=== PATIENT | female | born 1940 | race Hispanic/Latino ===

== ENCOUNTER 2019-10-23 10:19 | Inpatient (IN) | payer MEDICARE ==
[~2019-10-23] VITALS: Ht 157.5 cm; Wt 78.5 kg
[2019-10-23] MEDS ORDERED: ASPIRIN 81 MG CHEW TAB PO ONE (10:30)
[2019-10-23] MEDS ORDERED: IPRATROPIUM BROMIDE 0.02% 2.5 ML NEB NEB STA (10:30)
[2019-10-23] MEDS ORDERED: CEFTRIAXONE SOD 1 GM/NS 50 ML 50 ML IV STA (10:30)
[2019-10-23] MEDS ORDERED: ALBUTEROL SULF 0.083% NEB SOLN 3 ML NEB NEB STA (10:30)
--- NOTE | 2019-10-23 11:02 | NUR ---
per family pt has not take bp meds this morning
[2019-10-23] MEDS ORDERED: CYMBALTA30 MG PO (11:04)
[2019-10-23] MEDS ORDERED: IRBESARTAN150 MG PO (11:04)
[2019-10-23] MEDS ORDERED: AMLODIPINE BESYL5 MG PO (11:04)
--- NOTE | 2019-10-23 11:04 | NUR ---
pt medications reviewed with family
--- NOTE | 2019-10-23 11:08 | NUR ---
PER FAMILY PT NO LONGER PRODUCES URINE
[2019-10-23 11:21] LABS: INR 0.93
[2019-10-23 11:22] LABS: BASOPHILS % 0.2 % (0.0-1.0); EOSINOPHILS # (AUTO) 0.1 (0.0-0.4); HEMATOCRIT 38.7 % (34.2-44.1); HEMOGLOBIN 11.9 g/dL (12.0-16.0); MEAN CORPUSCULAR HEMOGLOBIN 26.6 pg (28-32); MEAN CORPUSCULAR HGB CONC 30.7 g/dL (31-35); MEAN CORPUSCULAR VOLUME 86.6 fL (81-99); MONOCYTES # (AUTO) 0.9 (0.2-0.8); MONOCYTES % 17.5 % (4.4-11.3); NEUTROPHILS # (AUTO) 3.2 (2.1-6.9); NEUTROPHILS % 62.1 % (38.7-80.0); PARTIAL THROMBOPLASTIN TIME 34.6 seconds (23.8-35.5); PLATELET COUNT 121 x10e3/uL (140-360); RED BLOOD COUNT 4.47 x10e6/uL (3.6-5.1)
[2019-10-23 11:29] LABS: ALBUMIN 3.2 g/dL (3.5-5.0); ALBUMIN/GLOBULIN RATIO 0.8 (0.8-2.0); ANION GAP 27.5 mmol/L (8-16); CALCIUM 9.2 mg/dL (8.4-10.2); CREATININE, SERUM 11.43 mg/dL (0.57-1.11); POTASSIUM 5.5 mmol/L (3.5-5.1)
--- NOTE | 2019-10-23 11:40 | Diagnostic Imaging Report ---
EXAM: CHEST SINGLE (PORTABLE) DATE: 10/23/2019 10:30 AM INDICATION: Fever, cough, chest pain COMPARISON: None FINDINGS: The trachea is midline. There are minimal bibasilar opacities suggestive of atelectasis. The lungs are otherwise symmetrically expanded without evidence for large focal consolidation, pneumothorax, or significant pleural effusion. The cardiac silhouette appears mildly prominent which is likely secondary to technique. Atherosclerotic calcifications are noted within the aortic arch. Vascular stent noted in the left subclavian region. The visualized osseous structures demonstrate degenerative changes. No acute osseous abnormality identified. IMPRESSION: No acute cardiopulmonary process identified. Signed by: Dr. Paulo Gramajo MD on 10/23/2019 11:37 AM
[2019-10-23 11:54] LABS: CREATINE KINASE MB 1.1 ng/mL (0-5.0)
[2019-10-23] MEDS ORDERED: ONDANSETRON HCL INJ 2MG/ML 2ML 2 MG/ML VIAL IV PRN (12:15)
[2019-10-23] MEDS ORDERED: ALBUTEROL/IPRATROPIUM 3 ML NEB NEB ONE (12:30)
[2019-10-23] MEDS ORDERED: METHYLPREDNISOLONE SOD SUCC 125 MG/2ML VIAL IV ONE (12:30)
[2019-10-23] MEDS ORDERED: ALBUTEROL/IPRATROPIUM 3 ML NEB NEB PRN (12:30)
[2019-10-23] MEDS ORDERED: SODIUM CHLORIDE 0.9% 1000ML 1,000 ML ONE (15:51)
[2019-10-23] MEDS ORDERED: PNEUMOCOCCAL VACCINE POLYVALENT 23 MCG/0.5 ML VIAL IM SCH ×2 (16:17→22:00)
[2019-10-23 16:18] VITALS: BP 156/70
[2019-10-23 16:28] VITALS: BP 156/70
[2019-10-23 20:00] VITALS: BP 162/72
--- NOTE | 2019-10-23 20:30 | NUR ---
Received nursing report from night nurse. Pt alert to name, lying in bed, HOB 45 degrees, receiving HD dialysis. Denies pain at this time. Family at bedside. Call light within reach. Will continue to monitor.
[2019-10-23 21:00] VITALS: BP 162/72
[2019-10-23] MEDS: METHYLPREDNISOLONE SOD SUCC 40 MG/ML VIAL 1ML IV SCH (21:16)
[2019-10-24] VITALS (9 sets, daily range): BP systolic 134–183; BP diastolic 56–79
[2019-10-24] MEDS: METHYLPREDNISOLONE SOD SUCC 40 MG/ML VIAL 1ML IV SCH ×3 (01:42→14:50)
[2019-10-24 05:38] LABS: ALBUMIN/GLOBULIN RATIO 0.8 (0.8-2.0); ANION GAP 20.8 mmol/L (8-16); CALCIUM 9.9 mg/dL (8.4-10.2); CREATININE, SERUM 5.61 mg/dL (0.57-1.11); POTASSIUM 4.8 mmol/L (3.5-5.1)
[2019-10-24 05:44] LABS: HEMATOCRIT 34.3 % (34.2-44.1); HEMOGLOBIN 10.9 g/dL (12.0-16.0); LYMPHOCYTES # (AUTO) 0.2 (1.0-3.2); MEAN CORPUSCULAR HEMOGLOBIN 27.1 pg (28-32); MEAN CORPUSCULAR HGB CONC 31.8 g/dL (31-35); MEAN CORPUSCULAR VOLUME 85.3 fL (81-99); MONOCYTES # (AUTO) 0.1 (0.2-0.8); NEUTROPHILS # (AUTO) 0.6 (2.1-6.9); PLATELET COUNT 102 x10e3/uL (140-360); RED BLOOD COUNT 4.02 x10e6/uL (3.6-5.1)
[2019-10-24 06:05] LABS: CREATINE KINASE MB 1.1 ng/mL (0-5.0)
--- NOTE | 2019-10-24 06:09 | NUR ---
Informed by lab WBC 0.89, called Dr. Hoffman ordered neurogenic precautions and consult for Dr. Wheatley.
--- NOTE | 2019-10-24 06:18 | NUR ---
Spoke with Dr. Cormier regarding consult, stated will visit Pt today.
--- NOTE | 2019-10-24 07:00 | NUR ---
Report given to morning nurse. Pt alert and orient. No acute distress noted.
--- NOTE | 2019-10-24 07:39 | NUR ---
H&P cc: not feeling well HPI: 79yoF, PCP , developed sob and cough. IN ED positive for Flu. admitted for mgmt. PMH: ESRD, HTN PSHx: unknown Allergies; see emr Fh/SH; no illicits meds; see MAR ROS; no cp/sob/BARKER/dizziness/skin rash/diarrhea/back pain/confusion v/s revd PE tired appearing anicteric ns1s2 reduced BS soft nt nd no e/t skin dry flat affect a&ox3; harden labs/meds revd A/P: 79yoF Influenzea A infection Pancytopenia Neutropenia ESRD Hyperkalemia Obesity BMI 31.6 HTN PLAN IV azithromycin/IV cefepime Neutropenic precautions HD for fluid removal PT therapy SCD/pepcid Bunny Hoffman MD, PhD.
[2019-10-24 08:28] LABS: CHOL/HDL RATIO 4.1 (3.0-3.6)
[2019-10-24] MEDS ORDERED: CEFEPIME 1GM/NS 0.9% 50 ML 50 ML IV SCH (09:00)
[2019-10-24] MEDS ORDERED: AZITHROMYCIN 500MG/NS 250 ML 250 ML IV SCH (10:00)
[2019-10-24] MEDS ORDERED: SODIUM CHLORIDE 0.9% 250ML 250 ML ONE (10:10)
[2019-10-24] MEDS: OSELTAMIVIR PHOSPHATE 75 MG CAP PO SCH ×2 (10:17→21:00)
[2019-10-24] MEDS: BENZONATATE 100 MG CAP PO SCH ×3 (10:17→22:00)
[2019-10-24] MEDS: AMLODIPINE BESYLATE 5 MG TAB PO SCH (10:17)
[2019-10-24] MEDS ORDERED: FILGRASTIM 480 MCG/1.6 ML SQ ONE (10:45)
[2019-10-24 11:42] LABS: BAND NEUTROPHILS % (MANUAL) 6 %; LYMPHOCYTES % (MANUAL) 28 % (19-48); MONOCYTES % (MANUAL) 6 % (3.4-9.0); NEUTROPHILS % (MANUAL) 60 % (40-74); PLATELET ESTIMATE SLIGHTLY DECREASED; PLATELET MORPHOLOGY COMMENT NORMAL; RBC MORPHOLOGY COMMENT NORMAL
--- NOTE | 2019-10-24 14:50 | NUR ---
WOUND CARE CONSULT 79 YO FEMALE HX OF ESRD,DYSPNEA, FLUID OVERLOAD LINDEN 15 ON MODERATE PUP INTERVENTIONS AND ALTERNATING PRESSURE SURFACE LABS: WBC- .89,HGB- 10.9, GLUCOSE - 162 BLOOD CULTURE PENDING SKIN ASSESSMENT COMPLETE PATIENT PRESENTS WITH ABRASION TO LEFT POSTERIOR FOOT ACHILLES 1CM X1CM X .1CM PATIENT REPORTS SCRAPING BACK OF HEEL ON WHEELCHAIR RECOMMENDATIONS: NURSING TO CONTINUE TO MAINTAIN MODERATE PUP STATUS AND ALTERNATING PRESSURE SURFACE NURSING TO CONTINUE TO ASSIST PATIENT OUT OF BED FOR MEALS AND MUCH TOLERATED NURSING TO APPLY DAILY VENELEX OINTMENT TO LEFT POSTERIOR HEEL ACHILLES AREA ABRASION LEAVE OPEN TO AIR
--- NOTE | 2019-10-24 15:49 | NUR ---
PATIENT STUCK 4 TIMES WITH ULTRASOUND GUIDED IV IN RIGHT ARM, IV I SNOW INFILTRATED, HER LEFT ARM HAS AN AV SHUNT FOR HEMODIALYSIS SO CAN NOT BE USED FOR IV ACCESS; CALLED DR. MACEDO, LEFT MESSAGE TO CALL BACK WITH CALL BACK NUMBER AND PATIENT NAME.
--- NOTE | 2019-10-24 16:43 | NUR ---
CALLED DR. THOMAS'S OFFICE PER DR. MCDOWELL'S INSTRUCTIONS REGARDING REQUEST FOR MIDLINE OR PICC LINE FOR ANTIBIOTIC ADMINISTRATION.
[2019-10-24] MEDS: FAMOTIDINE 20 MG TAB PO SCH (18:17)
--- NOTE | 2019-10-24 19:10 | NUR ---
Report received from morning nurse. Pt alert to name, lying in bed, HOB 45 degrees. Denies pain at this time. Bed low and locked. Call light within reach. Family at bedside. Will continue to monitor.
[2019-10-25] VITALS (7 sets, daily range): BP systolic 132–192; BP diastolic 65–88
--- NOTE | 2019-10-25 00:01 | Consultation ---
DATE OF CONSULTATION: 10/24/2019 HISTORY OF PRESENT ILLNESS: This is an 79-year-old female with underlying history of end-stage renal disease, congestive heart failure, anemia, and chronic kidney disease, came in with shortness of breath, found to have significant hematological problems. Dr. England was consulted. Initial white count was with a hemoglobin 10.9, platelets 102. Initial chemistries; potassium 4.8, creatinine 5.6. BNP . She was emergently dialyzed. She is feeling better. Awake, alert, and resting in no apparent distress. PHYSICAL EXAMINATION: VITAL SIGNS: Blood pressure 154/71, pulse rate 90, and afebrile. HEAD AND NECK: Cornea clear. Oral mucosa moist. LUNGS: End-expiratory rhonchi with scattered rales. HEART: S1 and S2 audible. ABDOMEN: Soft, nontender. No apparent visceromegaly. EXTREMITIES: Lower extremity, no edema. ALLERGIES: NO APPARENT DRUG ALLERGIES. CURRENT MEDICATIONS: Please see MAR. SOCIAL HISTORY: The patient does not smoke or drink. FAMILY HISTORY: Significant for hypertension. IMPRESSION AND PLAN: Fluid overload, end-stage renal disease, leukopenia, and Hematology consulted status post [facility]. I will arrange for dialysis, fluid restriction, renal diet. Further recommendations to follow. MD IRIS Stern/ANGELES /[id number]
[2019-10-25] MEDS: METHYLPREDNISOLONE SOD SUCC 40 MG/ML VIAL 1ML IV SCH ×4 (02:30→17:04)
[2019-10-25 05:25] LABS: BASOPHILS # (AUTO) 0.1 (0.0-0.1); BASOPHILS % 0.2 % (0.0-1.0); EOSINOPHILS # (AUTO) 0.1 (0.0-0.4); EOSINOPHILS % 0.2 % (0.0-6.0); HEMATOCRIT 35.4 % (34.2-44.1); HEMOGLOBIN 10.9 g/dL (12.0-16.0); LYMPHOCYTES # (AUTO) 0.6 (1.0-3.2); LYMPHOCYTES % 2.3 % (18.0-39.1); MEAN CORPUSCULAR HEMOGLOBIN 26.5 pg (28-32); MEAN CORPUSCULAR HGB CONC 30.8 g/dL (31-35); MEAN CORPUSCULAR VOLUME 86.1 fL (81-99); MONOCYTES # (AUTO) 1.4 (0.2-0.8); MONOCYTES % 5.2 % (4.4-11.3); NEUTROPHILS # (AUTO) 23.2 (2.1-6.9); NEUTROPHILS % 84.1 % (38.7-80.0); PLATELET COUNT 120 x10e3/uL (140-360); RED BLOOD COUNT 4.11 x10e6/uL (3.6-5.1)
[2019-10-25 05:40] LABS: ALBUMIN 2.9 g/dL (3.5-5.0); ALBUMIN/GLOBULIN RATIO 0.8 (0.8-2.0); CALCIUM 9.8 mg/dL (8.4-10.2); CREATININE, SERUM 8.04 mg/dL (0.57-1.11)
--- NOTE | 2019-10-25 06:34 | NUR ---
IM- progress note O/N no events ROS; no cp/sob/BARKER/dizziness/skin rash/diarrhea/back pain/confusion v/s revd PE tired appearing anicteric ns1s2 reduced BS soft nt nd no e/t skin dry flat affect a&ox3; harden labs/meds revd A/P: 79yoF Influenza A infection Pancytopenia Neutropenia ESRD Hyperkalemia Obesity BMI 31.6 HTN PLAN IV azithromycin/IV cefepime Neutropenic precautions HD for fluid removal PT therapy SCD/pepcid 10/25 WBC much improved by BM stimulating factor given; d/c cefepime; continue azithromycin; cont care. Bunny Hoffman MD, PhD.
[2019-10-25] MEDS: BENZONATATE 100 MG CAP PO SCH ×3 (06:39→20:48)
--- NOTE | 2019-10-25 06:45 | NUR ---
Pt lying in bed, HOB 45 degrees, resting with eyes closed, RR even and unlabored. No acute distress noted.
--- NOTE | 2019-10-25 07:00 | NUR ---
BEDSIDE SHIFT RECEIVED FROM THE FRIT COATER RN.PT IS AAOX4. EDUCATED PT ABOUT FALL PRECAUTIONS. CALL LIGHT WITH IN EASY REACH. INSTRUCTED PT TO USE CALL LIGHT FOR ALL THE NEEDS. PT VERBALIZED UNDERSTANDING. BED IS LOW AND LOCKED. SIDE RAILS X2. PT DENIES NEEDS AT THIS TIME.
--- NOTE | 2019-10-25 07:15 | NUR ---
INSTALLER INSPECTOR FINAL AT BEDSIDE.
[2019-10-25] MEDS ORDERED: SODIUM CHLORIDE 0.9% 1000ML 2,000 ML ONE (07:32)
[2019-10-25] MEDS: FAMOTIDINE 20 MG TAB PO SCH ×2 (08:30→17:04)
[2019-10-25] MEDS: BALSAM PERU/CASTOR OIL 60 GM OINT...G. TP SCH (09:50)
[2019-10-25] MEDS: OSELTAMIVIR PHOSPHATE 75 MG CAP PO SCH ×2 (09:50→20:48)
--- NOTE | 2019-10-25 12:00 | NUR ---
2 L FLUIDS REMOVED A SPER CLAIM INSPECTOR. MALCOM TO GIVE BP MEDS PER DIALYSIS.
[2019-10-25] MEDS: AMLODIPINE BESYLATE 5 MG TAB PO SCH (12:22)
[2019-10-25] MEDS ORDERED: ONDANSETRON HCL 4 MG ORAL DISINTEGRATING TAB PO PRN (15:45)
[2019-10-25] MEDS: AZITHROMYCIN 500MG/NS 250 ML 250 ML IV SCH (17:05)
--- NOTE | 2019-10-25 19:00 | NUR ---
BEDSIDE SHIFT REPORT GIVEN TO THE CHAIN CARRIER RN. PT DENIED FURTHER NEEDS.
[2019-10-26] VITALS (8 sets, daily range): BP systolic 127–179; BP diastolic 61–85
[2019-10-26] MEDS: METHYLPREDNISOLONE SOD SUCC 40 MG/ML VIAL 1ML IV SCH ×4 (00:31→17:13)
[2019-10-26] MEDS: BENZONATATE 100 MG CAP PO SCH ×3 (06:01→20:32)
--- NOTE | 2019-10-26 06:40 | NUR ---
IM- progress note O/N no events ROS; no cp/sob/BARKER/dizziness/skin rash/diarrhea/back pain/confusion v/s revd PE tired appearing anicteric ns1s2 reduced BS soft nt nd no e/t skin dry flat affect a&ox3; harden labs/meds revd A/P: 79yoF Influenza A infection Pancytopenia Neutropenia ESRD Hyperkalemia Obesity BMI 31.6 HTN PLAN IV azithromycin/IV cefepime Neutropenic precautions HD for fluid removal PT therapy SCD/pepcid 10/25 WBC much improved by BM stimulating factor given; d/c cefepime; continue azithromycin; cont care. 10/26 check CBC Bunny Hoffman MD, PhD.
--- NOTE | 2019-10-26 07:00 | NUR ---
RECEIVED PATIENT RESTING IN BED NO S/S OF DISTRESS. BED LOW, WHEELS LOCKED, SIDE RAILS X2. CALL LIGHT IN REACH WILL CONTINUE TO MONITOR PATIENT.
[2019-10-26 07:07] LABS: BASOPHILS # (AUTO) 0.1 (0.0-0.1); BASOPHILS % 0.2 % (0.0-1.0); EOSINOPHILS # (AUTO) 0.1 (0.0-0.4); EOSINOPHILS % 0.2 % (0.0-6.0); HEMATOCRIT 39.7 % (34.2-44.1); HEMOGLOBIN 12.2 g/dL (12.0-16.0); LYMPHOCYTES % 3.5 % (18.0-39.1); MEAN CORPUSCULAR HEMOGLOBIN 26.5 pg (28-32); MEAN CORPUSCULAR HGB CONC 30.7 g/dL (31-35); MEAN CORPUSCULAR VOLUME 86.3 fL (81-99); MONOCYTES % 3.6 % (4.4-11.3); NEUTROPHILS # (AUTO) 24.6 (2.1-6.9); NEUTROPHILS % 84.1 % (38.7-80.0); PLATELET COUNT 144 x10e3/uL (140-360); RED CELL DISTRIBUTION WIDTH 14.9 % (11.7-14.4)
[2019-10-26 08:42] LABS: BAND NEUTROPHILS % (MANUAL) 2 %; LYMPHOCYTES % (MANUAL) 5 % (19-48); MONOCYTES % (MANUAL) 3 % (3.4-9.0); NEUTROPHILS % (MANUAL) 90 % (40-74); PLATELET ESTIMATE ADEQUATE; PLATELET MORPHOLOGY COMMENT NORMAL; RBC MORPHOLOGY COMMENT NORMAL
[2019-10-26] MEDS: AMLODIPINE BESYLATE 5 MG TAB PO SCH (09:31)
[2019-10-26] MEDS: FAMOTIDINE 20 MG TAB PO SCH ×2 (09:31→17:13)
[2019-10-26] MEDS: OSELTAMIVIR PHOSPHATE 75 MG CAP PO SCH ×2 (09:32→20:32)
[2019-10-26] MEDS: BALSAM PERU/CASTOR OIL 60 GM OINT...G. TP SCH (09:32)
--- NOTE | 2019-10-26 11:13 | NUR ---
Nutrition Screen Note RD Recommendation for Physician: -Rec changing to renal diet as medically appropriate -Rec adding diabetic diet restriction if BG is consistently elevated Plan of Care: RD following, monitoring for tolerance and adequacy Nutrition reason for involvement: Diagnosis Primary Diagnose(s): fluid overload, ESRD, neutropenia, +Influenza A PMH: ESRD, CHF, CKD, anemia Ht: 62in Wt: 173lb BMI: 31.6kg/m2 IBW: 110lb +/- 10% RD Assessment: (10/26) Chart reviewed. Labs and meds reviewed. 79yo F, who was admitted for SOB, fluid overload and + Flu. BG at 165 with Solu-Medrol. Pt is Telugu speaking only. Noted 75% breakfast intake on bedside. Per PCT, pt was eating well without any nausea or vomiting. +BM. Last HD treatment was yesterday. Weight has been stable. No complain of chewing or swallowing difficulty. Will continue to monitor and follow. Current Diet: cardiac diet Malnutrition Evaluation (10/24/2019) The patient does not meet criteria for a specified degree of malnutrition at this time. Will re-evaluate at follow-up as appropriate. Diet Education Needs Assessment: Diet education not indicated. Nutrition Care Level: low Signed: Corine Andujar, MS, RD, LD
--- NOTE | 2019-10-26 13:53 | NUR ---
PATIENT A/O X3, EVEN RESPIRATIONS ON RA. LUNG SOUNDS DIMINISHED TO AUSCULTATION. PATIENT DENIES PAIN AT THIS TIME. RIGHT MIDLINE IV SL. TELEMETRY #[address], PATIENT CONTINENT TO BOWEL AND BLADDER. LEFT ANKLE SCAB, OPEN TO AIR. CALL LIGHT IN REACH WILL CONTINUE TO MONITOR PATIENT.
[2019-10-26] MEDS: AZITHROMYCIN 500MG/NS 250 ML 250 ML IV SCH (17:13)
--- NOTE | 2019-10-26 19:00 | NUR ---
RECEIVED PATIENT IN BEDSIDE REPORT. PATIENT RESTING IN BED AT THIS TIME. NO PAIN REPORTED. NO S&S OF DISTRESS NOTED. R MIDLINE IV ASYMPTOMATIC, INTACT, AND PATENT. BED LOCKED IN LOWEST POSITION, SIDE RAILS UPX2, CALL LIGHT IN REACH.
[2019-10-26] MEDS: METOPROLOL SUCCINATE 25 MG TAB XL PO SCH (21:49)
[2019-10-27] VITALS (8 sets, daily range): BP systolic 124–170; BP diastolic 58–72
[2019-10-27] MEDS: METHYLPREDNISOLONE SOD SUCC 40 MG/ML VIAL 1ML IV SCH ×5 (00:13→23:54)
[2019-10-27] MEDS: BENZONATATE 100 MG CAP PO SCH ×3 (06:14→21:32)
[2019-10-27] MEDS: BALSAM PERU/CASTOR OIL 60 GM OINT...G. TP SCH (08:41)
[2019-10-27] MEDS: AMLODIPINE BESYLATE 5 MG TAB PO SCH (08:41)
[2019-10-27] MEDS: FAMOTIDINE 20 MG TAB PO SCH ×2 (08:41→16:18)
[2019-10-27] MEDS: OSELTAMIVIR PHOSPHATE 75 MG CAP PO SCH ×2 (08:41→21:31)
[2019-10-27] MEDS: METOPROLOL SUCCINATE 25 MG TAB XL PO SCH ×2 (08:41→21:00)
--- NOTE | 2019-10-27 10:08 | NUR ---
IM- progress note O/N no events ROS; no cp/sob/BARKER/dizziness/skin rash/diarrhea/back pain/confusion v/s revd PE tired appearing anicteric ns1s2 reduced BS soft nt nd no e/t skin dry flat affect a&ox3; harden labs/meds revd A/P: 79yoF Influenza A infection Pancytopenia Neutropenia ESRD Hyperkalemia Obesity BMI 31.6 HTN PLAN IV azithromycin/IV cefepime Neutropenic precautions HD for fluid removal PT therapy SCD/pepcid 10/25 WBC much improved by BM stimulating factor given; d/c cefepime; continue azithromycin; cont care. 10/26 check CBC 10/27 Bunny Hoffman MD, PhD.
[2019-10-27] MEDS: ACETAMINOPHEN/CODEINE 300MG - 30MG TAB PO PRN (11:22)
--- NOTE | 2019-10-27 14:55 | NUR ---
Visit made by the Spiritual Care Department Pastoral Visitor, Stewart Boucher. PV provided pastoral presence, hospitality, communion, and supportive listening. Pastoral Visitor informed pt/family of the scope of Psychological Operations Specialist Services and availability. MERRY AIKEN Cyber Ops Planner Spiritual Care Department O: [phone] Pager: [phone] ([phone] number calling from)
[2019-10-27] MEDS: GABAPENTIN 100 MG CAP PO SCH ×2 (16:18→21:31)
[2019-10-27] MEDS: AZITHROMYCIN 500MG/NS 250 ML 250 ML IV SCH (16:18)
--- NOTE | 2019-10-27 19:00 | NUR ---
RECEIVED PATIENT IN BEDSIDE REPORT. A&OX2-3. NO PAIN REPORTED. NO S&S OF DISTRESS NOTED. FAMILY AT BEDSIDE. BED LOCKED IN LOWEST POSITION, SIDE RAILS UPX2, CALL LIGHT IN REACH.
--- NOTE | 2019-10-27 19:15 | NUR ---
Report given to oncoming nurse of patient's status. No s/s of acute distress noted. Side rails upx2, call light within reach, bed alarm on family at bedside.
[2019-10-28] VITALS (8 sets, daily range): BP systolic 130–187; BP diastolic 56–78
[2019-10-28] MEDS: FAMOTIDINE 20 MG TAB PO SCH ×2 (06:10→15:30)
[2019-10-28] MEDS: BENZONATATE 100 MG CAP PO SCH ×3 (06:10→21:12)
[2019-10-28] MEDS: METHYLPREDNISOLONE SOD SUCC 40 MG/ML VIAL 1ML IV SCH ×3 (06:10→21:11)
--- NOTE | 2019-10-28 07:00 | NUR ---
BEDSIDE SHIFT REPORT RECEIVED FROM THE FLOAT BUILDER RN. EDUCATED PT ABOUT FALL PRECAUTIONS. CALL LIGHT WITH IN EASY REACH. INSTRUCTED PT TO USE CALL LIGHT FOR ALL THE NEEDS. PT VERBALIZED UNDERSTANDING. BED IS LOW AND LOCKED. BED ALARM IS ON.SIDE RAILS X2. PT DENIES NEEDS AT THIS TIME.
--- NOTE | 2019-10-28 07:23 | NUR ---
IM- progress note O/N no events ROS; no cp/sob/BARKER/dizziness/skin rash/diarrhea/back pain/confusion v/s revd PE tired appearing anicteric ns1s2 reduced BS soft nt nd no e/t skin dry flat affect a&ox3; harden labs/meds revd A/P: 79yoF Influenza A infection Pancytopenia Neutropenia ESRD Hyperkalemia Obesity BMI 31.6 HTN PLAN IV azithromycin/IV cefepime Neutropenic precautions HD for fluid removal PT therapy SCD/pepcid 10/25 WBC much improved by BM stimulating factor given; d/c cefepime; continue azithromycin; cont care. 10/26 check CBC 10/27 cont care; PT initiation 10/28 may need snf vs Home PT. Bunny Hoffman MD, PhD.
--- NOTE | 2019-10-28 07:30 | NUR ---
OPTICAL LATHE OPERATOR AT BEDSIDE.
[2019-10-28] MEDS: ACETAMINOPHEN/CODEINE 300MG - 30MG TAB PO PRN ×2 (08:24)
[2019-10-28] MEDS ORDERED: SODIUM CHLORIDE 0.9% 1000ML 2,000 ML ONE (08:26)
[2019-10-28] MEDS: AMLODIPINE BESYLATE 5 MG TAB PO SCH ×2 (09:00→15:37)
[2019-10-28] MEDS: BALSAM PERU/CASTOR OIL 60 GM OINT...G. TP SCH (09:00)
[2019-10-28] MEDS: GABAPENTIN 100 MG CAP PO SCH ×3 (09:00→21:11)
[2019-10-28 10:18] LABS: BASOPHILS # (AUTO) 0.1 (0.0-0.1); BASOPHILS % 0.3 % (0.0-1.0); EOSINOPHILS % 0.2 % (0.0-6.0); HEMATOCRIT 35.4 % (34.2-44.1); LYMPHOCYTES # (AUTO) 0.8 (1.0-3.2); MEAN CORPUSCULAR HEMOGLOBIN 26.4 pg (28-32); MEAN CORPUSCULAR HGB CONC 31.1 g/dL (31-35); MEAN CORPUSCULAR VOLUME 84.9 fL (81-99); MONOCYTES # (AUTO) 0.7 (0.2-0.8); MONOCYTES % 3.1 % (4.4-11.3); NEUTROPHILS % 90.5 % (38.7-80.0); PLATELET COUNT 202 x10e3/uL (140-360); RED BLOOD COUNT 4.17 x10e6/uL (3.6-5.1); RED CELL DISTRIBUTION WIDTH 14.6 % (11.7-14.4)
--- NOTE | 2019-10-28 10:30 | NUR ---
Order received for SNF eval. Spoke to pt at bedside. Pt directed CM to call her daughter Glory and states to send clinicals wherever her daughter decides. CM called Glory Fan at [phone] and discussed plan. She states pt previously at [facility], but her sister works at [employer] so may want her mom to go there. States she will talk to her sister and mom and call CM back with choice. CM number given for callback. Will send referral once choice obtained.
[2019-10-28 10:32] LABS: ANION GAP 24.7 mmol/L (8-16); CALCIUM 7.8 mg/dL (8.4-10.2); CREATININE, SERUM 8.31 mg/dL (0.57-1.11); POTASSIUM 5.7 mmol/L (3.5-5.1)
--- NOTE | 2019-10-28 11:00 | NUR ---
PT C\O CHEST PAIN. PT IS ON DIALYSIS. INFORMED PT STATUS AT DR. RICHTER AT BEDSIDE. ALSO PAGED DR. MACEDO AND INFORMED THE SAME. HAND PATTERN MARKER AT BEDSIDE.
[2019-10-28] MEDS ORDERED: FILGRASTIM 480 MCG/1.6 ML ONE (11:15)
--- NOTE | 2019-10-28 11:30 | NUR ---
RE ASSESSED PT. NO C/O CHEST PAIN AT THIS TIME
--- NOTE | 2019-10-28 12:00 | NUR ---
Called pt's daughter to follow up on choice. Left for callback.
--- NOTE | 2019-10-28 12:15 | NUR ---
PAGE DR. MACEDO AND REPORTED PT HR. PT DENIES CHEST PAIN AT THIS TIME
--- NOTE | 2019-10-28 13:30 | NUR ---
DIALYSIS COMPLETED. 1.4 L REMOVED PER LINKING MACHINE OPERATOR.
[2019-10-28] MEDS: HYDRALAZINE HCL 25 MG TAB PO SCH ×2 (15:29→21:00)
[2019-10-28] MEDS: OSELTAMIVIR PHOSPHATE 75 MG CAP PO SCH ×2 (15:29→21:12)
--- NOTE | 2019-10-28 16:20 | NUR ---
Received callback from pt's daughter Glory Fan ([phone]). She states she spoke with her sister and they agreed on having pt at [facility]. Choice obtained. Signed letter placed in chart. Copy to pt's room. Discussed IMM letter with Ms. Fan. She verbalized understanding. Signed copy placed in chart. Copy to pt's bedside. Referral was faxed to [facility] at [phone]/ P [phone]. [address] [place] [address]
[2019-10-28] MEDS: AZITHROMYCIN 500MG/NS 250 ML 250 ML IV SCH (18:22)
--- NOTE | 2019-10-28 19:00 | NUR ---
BEDSIDE SHIFT REPORT GIVEN TO THE INDUSTRIAL TECH INSTRUCTOR RN. PT DENIED FURTHER NEEDS.
--- NOTE | 2019-10-28 20:00 | NUR ---
pt received. pt assessed. no ss of distress noted. tele in place. o2 nc noted. no co pain at time. will cont to follow poc. call rascon within reach.
[2019-10-29] VITALS (8 sets, daily range): BP systolic 131–149; BP diastolic 56–77
[2019-10-29] MEDS: ACETAMINOPHEN/CODEINE 300MG - 30MG TAB PO PRN (00:14)
[2019-10-29] MEDS: METHYLPREDNISOLONE SOD SUCC 40 MG/ML VIAL 1ML IV SCH ×4 (03:10→21:30)
--- NOTE | 2019-10-29 04:00 | NUR ---
pt resting. no ss of distress noted. call rascon within reach.
[2019-10-29] MEDS: BENZONATATE 100 MG CAP PO SCH ×2 (06:32→14:22)
--- NOTE | 2019-10-29 07:00 | NUR ---
BEDSIDE SHIFT REPORT RECEIVED FROM THE CODING COMPLIANCE AUDITOR RN. EDUCATED PT ABOUT FALL PRECAUTIONS. CALL LIGHT WITH IN EASY REACH. INSTRUCTED PT TO USE CALL LIGHT FOR ALL THE NEEDS. PT VERBALIZED UNDERSTANDING. BED IS LOW AND LOCKED. BED ALARM IS ON. SIDE RAILS X2. PT DENIES NEEDS AT THIS TIME.
--- NOTE | 2019-10-29 07:10 | NUR ---
PAGED DR. MACEDO AND INFORMED PT LOW HR. NEW ORDER RECEIVED FOR CONSULT.
--- NOTE | 2019-10-29 07:15 | NUR ---
PAGED DR. MAC REGARDING NEW CONSULT
[2019-10-29] MEDS: FAMOTIDINE 20 MG TAB PO SCH ×2 (08:30→15:38)
[2019-10-29] MEDS: GABAPENTIN 100 MG CAP PO SCH ×3 (08:55→21:30)
[2019-10-29] MEDS: AMLODIPINE BESYLATE 5 MG TAB PO SCH (08:55)
[2019-10-29] MEDS: BALSAM PERU/CASTOR OIL 60 GM OINT...G. TP SCH (09:03)
[2019-10-29] MEDS: HYDRALAZINE HCL 25 MG TAB PO SCH ×3 (10:00→21:30)
--- NOTE | 2019-10-29 11:06 | NUR ---
[facility]ARE FACILITY DISCHARGE INFORMATION PATIENT HAS BEEN ACCEPTED TO: NAME: [facility] ADDRESS:[id number] ACCEPTING CONTRACTS SPECIALIST: CHERYL SAUNDERS MD: SPENCER ROOM:59B NURSE CALL REPORT TO: [phone] IMM SIGNED AND OBTAINED (if applicable): Y THE FOLLOWING DOCUMENTS MUST ACCOMPANY PATIENT FOR TRANSFER: COPIED CHART: Y
--- NOTE | 2019-10-29 11:31 | NUR ---
FAXED PASRR TO FACILITY AND COMPLETED RTF AND PUT WITH PACKET FOR COMPLETION OF TRANSFER.
--- NOTE | 2019-10-29 12:00 | NUR ---
PAGED DR. MAC REGARDING CONSULT. PT IS TRANSFERRING TO SNF. WAITING FOR THE RESPONSE FROM THE
--- NOTE | 2019-10-29 12:05 | NUR ---
TA MACEDO AND INFORMED PENDING CARIOLOGY CONSULT.
--- NOTE | 2019-10-29 13:00 | NUR ---
CALL BACK FROM DR. MACEDO. CARDIOLOGY CLEARANCE NEEDED. CONTACT DR. MANRIQUE AFTER CARDIOLOGY CONSULT.
--- NOTE | 2019-10-29 14:00 | NUR ---
DR. MANRIQUE AT BEDSIDE. NO D/C TODAY PER DR. MANRIQUE
--- NOTE | 2019-10-29 15:15 | NUR ---
PT HAS HEMATOMA NEAR MIDLINE ON THE RIGHT HAND AND C/O RIGHT SHOULDER PAIN. INFORMED THE SAME TO DR. MANRIQUE AT BEDSIDE. NEW ORDER FOR X RAY AND CONTINUE MONITOR PER THE
--- NOTE | 2019-10-29 15:30 | NUR ---
KEEP THE MIDLINE AND REMOVE THE LINE BEFORE TRANSFER TO SNF TOMORROW, PER DR. MANRIQUE.
--- NOTE | 2019-10-29 16:00 | NUR ---
MIDLINE DRESSING CHANGE COMPLETED. PT DENIED FURTHER NEEDS.
--- NOTE | 2019-10-29 16:34 | Progress Note ---
DATE: 10/29/2019 Medicine Progress Note SUBJECTIVE: I am covering for Dr. Bunny Hoffman. The patient is doing well today with no complaints. She came in with underlying flu, was treated accordingly with Tamiflu. She also came in with shortness of breath, volume overload, and she has a history of ESRD and had dialysis. Currently, has a right upper extremity midline, unsure why. PHYSICAL EXAMINATION: VITAL SIGNS: Temperature 96.1, pulse 48, respiratory rate is 16, blood pressure 140/77, and pulse ox is 100% on nasal cannula. GENERAL: In no acute distress, alert and oriented x3. Cooperative on examination. HEENT: Head is normocephalic and atraumatic. Eyes; pupils are equal, round, and reactive to light bilaterally. Extraocular movements intact bilaterally. Throat; no evidence of erythema or exudates in the posterior pharynx. Has poor dentition. NECK: Supple. Good range of motion. PULMONARY: Clear to auscultation bilaterally. No wheezing, no rales, no rhonchi, no crackles appreciated. CARDIOVASCULAR: Positive S1 and S2. No murmurs, rubs, or gallops appreciated. ABDOMEN: Soft, nondistended, and nontender to palpation. Bowel sounds present. MUSCULOSKELETAL: Strength is 5/5 throughout. No evidence of any muscle deficits on examination. No weakness appreciated. NEUROLOGIC: Cranial nerve II through XII are grossly intact. No evidence of any neurological deficits on exam. SKIN: Intact. Warm to touch. Good cap refill. PSYCHIATRIC: Normal affect and mood. EXTREMITIES: No edema. Good range of motion throughout. LABORATORY DATA: Show white count 20, but she had Neupogen. Hemoglobin 11, hematocrit is 35, and platelets of 202. Chemistry; sodium 134, potassium 5.7; these labs are from yesterday. Chloride 95, bicarb 20, anion gap of 24, BUN is 116, and creatinine is 8.3, glucose 179, and calcium is 7.8. Flu, positive. Group A strep, negative. Hepatitis, negative. MICROBIOLOGY: Blood and throat cultures were negative. IMAGING STUDIES: Chest x-ray was negative. IMPRESSION: 1. Influenza A positive. 2. Pancytopenia with underlying neutropenia, status post Neupogen given. 3. End-stage renal disease, on HD with hyperkalemia. 4. Morbid obesity. 5. Hypertension. 6. Bradycardia. PLAN: At this time, the patient continues to be on IV antibiotics for possible healthcare-associated pneumonia. The patient already completed her Tamiflu regimen. Her white count is elevated at 20, but that is all secondary to Neupogen, being monitored by Hematology. She did have some bradycardia, which Cardiology was consulted by Dr. Hoffman. She is not on any beta-blockers, but I did stop the Tessalon Perles. Get a.m. labs. Resume same plan of care. Monitor closely. She has been accepted to a detention facility, but I am awaiting for final recommendations by Cardiology. MD ADDIE Benoit/ANGELES /[id number]
[2019-10-29] MEDS: AZITHROMYCIN 500MG/NS 250 ML 250 ML IV SCH (17:17)
--- NOTE | 2019-10-29 17:50 | Diagnostic Imaging Report ---
SHOULDER RIGHT COMPLETE - 3 views HISTORY: Pain COMPARISON: None available. FINDINGS: Bones: No acute displaced fracture. Joints: High-riding humeral head suggesting chronic rotator cuff pathology, resulting in marked narrowing of the acromiohumeral space. Arthritic changes involving the glenohumeral and AC joints with erosive changes of the humeral head, possibly subchondral collapse which may reflect avascular necrosis in the proper clinical setting. Soft tissues: The soft tissues appear unremarkable. 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 Signed by: Dr. Omer Obando M.D. on 10/29/2019 5:46 PM
--- NOTE | 2019-10-29 19:00 | NUR ---
BEDSIDE SHIFT REPORT GIVEN TO THE HEAVY LIFT RIGGER RN. PT DENIED FURTHER NEEDS.
--- NOTE | 2019-10-29 19:15 | NUR ---
patient in bed awake alert oriented, family member on bed side at this time. no distress noted, mid line to right arm intact, will continue to monitor.
[2019-10-30] VITALS (7 sets, daily range): BP systolic 117–187; BP diastolic 62–77
[2019-10-30] MEDS: METHYLPREDNISOLONE SOD SUCC 40 MG/ML VIAL 1ML IV SCH ×3 (03:23→16:59)
[2019-10-30 05:27] LABS: BASOPHILS % 0.2 % (0.0-1.0); HEMATOCRIT 37.1 % (34.2-44.1); HEMOGLOBIN 11.6 g/dL (12.0-16.0); LYMPHOCYTES # (AUTO) 0.5 (1.0-3.2); LYMPHOCYTES % 4.2 % (18.0-39.1); MEAN CORPUSCULAR HEMOGLOBIN 26.7 pg (28-32); MEAN CORPUSCULAR HGB CONC 31.3 g/dL (31-35); MEAN CORPUSCULAR VOLUME 85.5 fL (81-99); MONOCYTES # (AUTO) 0.6 (0.2-0.8); MONOCYTES % 5.1 % (4.4-11.3); NEUTROPHILS # (AUTO) 8.7 (2.1-6.9); NEUTROPHILS % 79.2 % (38.7-80.0); PLATELET COUNT 152 x10e3/uL (140-360); RED BLOOD COUNT 4.34 x10e6/uL (3.6-5.1); RED CELL DISTRIBUTION WIDTH 14.6 % (11.7-14.4)
[2019-10-30 05:41] LABS: ANION GAP 22.7 mmol/L (8-16); CALCIUM 7.7 mg/dL (8.4-10.2); CREATININE, SERUM 7.63 mg/dL (0.57-1.11); POTASSIUM 5.7 mmol/L (3.5-5.1)
[2019-10-30] MEDS: FAMOTIDINE 20 MG TAB PO SCH ×2 (08:35→16:59)
[2019-10-30] MEDS: HYDRALAZINE HCL 25 MG TAB PO SCH ×2 (08:38→15:00)
[2019-10-30] MEDS: AMLODIPINE BESYLATE 5 MG TAB PO SCH (08:38)
[2019-10-30] MEDS: GABAPENTIN 100 MG CAP PO SCH ×2 (08:38→16:59)
[2019-10-30] MEDS: BALSAM PERU/CASTOR OIL 60 GM OINT...G. TP SCH (08:38)
[2019-10-30 09:31] LABS: LYMPHOCYTES % (MANUAL) 5 % (19-48); MONOCYTES % (MANUAL) 4 % (3.4-9.0); NEUTROPHILS % (MANUAL) 91 % (40-74)
[2019-10-30 09:34] LABS: PLATELET ESTIMATE ADEQUATE; PLATELET MORPHOLOGY COMMENT NORMAL; RBC MORPHOLOGY COMMENT NORMAL
[2019-10-30] MEDS ORDERED: SODIUM CHLORIDE 0.9% 1000ML 2,000 ML ONE (09:46)
[2019-10-30] MEDS: SEVELAMER CARBONATE 800 MG TAB PO SCH ×2 (12:42→16:59)
--- NOTE | 2019-10-30 14:06 | NUR ---
Called abelino Tay, NOK, Daughter, to inform that patient was going to SNF. No answer at [phone]. G left to call me back for info
--- NOTE | 2019-10-30 15:03 | NUR ---
family returned call, aware of discharge
--- NOTE | 2019-10-30 16:08 | Progress Note ---
DATE: 10/30/2019 SUBJECTIVE: Seen on dialysis, tolerating procedures, has quite a bit of bony aches as well as apparently now shoulder necrosis per staff. Breathing itself is better. OBJECTIVE: GENERAL: On examination, lying in bed, no distress. VITAL SIGNS: Temperature 96.6, pulse 58, blood pressure 139/62. CHEST: Now clear. EXTREMITIES: No edema. VASCULAR: Exam is patent. Aneurysm is stable. LABORATORY DATA: White count is up to 11,000, status post Neupogen, hemoglobin 11.6, platelets are 152. Sodium 134, K 5.7, creatinine 7.3, BUN 107. ASSESSMENT: 1. End-stage renal disease. 2. Suspect inadequate clearance. 3. Hyperkalemia. 4. Secondary hyperparathyroidism, history of poorly controlled phosphorus. PLAN: 4-hour dialysis, F180 filter, 2-3 L fluid removal, 2 potassium bath, keep to low K, low phosphorus diet. MD SIOMARA Claire/TONIL /[id number]
--- NOTE | 2019-10-31 05:37 | Discharge Summary ---
FINAL DISCHARGE DIAGNOSES: 1. Influenza A positive, completed treatment here in the hospital. 2. Pancytopenia with underlying neutropenia, status post Neupogen given with no elevated white count. 3. End-stage renal disease, on hemodialysis with mild hyperkalemia, resolved. 4. Morbid obesity. 5. Hypertension. 6. Sinus bradycardia, asymptomatic. CONSULTANTS: Hematology and Nephrology. VITAL SIGNS: Temperature is 97.3, pulse 65, respiratory rate 16, blood pressure 141/65, and pulse ox 99% on room air. LABORATORY FINDINGS: White count on admission was 5.1, then downtrended to 0.89. Given Neupogen now on discharge, it went as high as peaked to 29.2 and on discharge was 11. Hemoglobin 11.6, hematocrit 37, and platelets 152. Coagulation; PT 13, INR 0.93, and PTT 34. Chemistry; sodium 134, potassium 5, chloride 95. The patient was given dialysis today. Bicarb 22, BUN was 107, but had dialysis, creatinine is 7.6, glucose 191, and calcium 7.7. Troponins were negative. LDL was 109. Albumin was 3. BNP was 1886. Serology; hepatitis panel was negative. Flu; influenza A was positive. Group A strep was negative. MICROBIOLOGY: Blood cultures were negative. Throat cultures were negative. IMAGING STUDIES: Chest x-ray, no acute cardiopulmonary process. 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 HOSPITAL COURSE: This is an 79-year-old female, who came in with underlying flu-like symptoms, found to be influenza A positive, on rapid flu. She also came in with volume overload and underlying shortness of breath. While here, Nephrology was consulted and the patient had hemodialysis with increased ultrafiltration due to underlying volume overload. The patient was found to be leukopenic, requiring Hematology consultation. The patient was given Neupogen with an increased white count after Neupogen was given. On discharge, white count was 11. The patient improved respiratory status poe after several dialysis treatments here in the hospital course. The patient was given Tamiflu and completed her 5-day course while here in the hospital stay. All cultures were found to be negative. She was maintained on IV antibiotic therapy. She did complete her antibiotics while here in the hospital stay. Imaging studies did not show any evidence of pneumonia. The patient was afebrile here in the hospital stay. The patient also had symptomatic bradycardia with heart rate in the 50s with no issues. She was on any beta-blockers. The patient worked with physical therapy and occupational therapy, but required longterm facility placement. The patient improved throughout the hospital course. The patient complained of shoulder pain, shows evidence of osteoarthritis and recommended to follow up with Orthopedics. The patient verbalized understanding. On discharge, the patient was doing well, back to normal baseline with no other complaints. On the day of discharge, vital signs were stable, labs reviewed and stable. The patient is seen, evaluated, and examined thoroughly on the day of discharge. No other complaints. The patient verbalized understanding and agreed to plan of care to follow up accordingly as an outpatient with the primary care physician in 1 week and the rest of the consultants as described above in 2 weeks' time. MEDICATIONS: See med reconciliation form. DISPOSITION: longterm facility. CONDITION: Stable. DIET: Heart healthy. DISCHARGE INSTRUCTIONS: In the event of any worsening symptoms, the patient was advised to come back to the ED for further evaluation. TIME SPENT: Discharge summary took greater than 35 minutes. MD ADDIE Benoit/ANGELES /[id number]
--- OUTSIDE RECORDS SUMMARY | 2019-11-01 10:55 | XMS REPORT ---
[facility] Address Unknown Phone Unavailable Care Team Providers Care Marketing Analytics Analyst Name Role Phone VIVEK MACEDO Unavailable Unavailable Payers Payer Name Policy Type Policy Number Effective Date Expiration Date Problems This patient has no known problems. Allergies, Adverse Reactions, Alerts Allergy Name Allergy Type Status Severity Reaction(s) Onset Date Inactive Date Treating Clinician Comments No Known Allergies DA Active U 2018-12-19 00:00:00 No Known Allergies DA Active U 2018-05-11 00:00:00 Medications This patient has no known medications. Results Test Description Test Time Test Comments Text Results Atomic Results Result Comments SHOULDER RIGHT COMPLETE 2019-10-29 17:44:00 [place] [address] Patient Name: CAMILLE PEREA MR #: [id number] : 1940 Age/Sex: 79/F Req #: [id number] Adm Physician: VIVEK MACEDO MD Ordered by: HERSON MANRIQUE MD Report #: [id number] Location: MED/SURG2 Room/Bed: [facility] Procedure: [id number] DX/SHOULDER RIGHT COMPLETE Exam Date: Exam Time: REPORT STATUS: Signed SHOULDER RIGHT COMPLETE - 3 views HISTORY: Pain COMPARISON: None available. FINDINGS: Bones: No acute displaced fracture. Joints: High-riding humeral head suggesting chronic rotator cuff pathology, resulting in marked narrowing of the acromiohumeral space. Arthritic changes involving the glenohumeral and AC joints with erosive changes of the humeral head, possibly subchondral collapse which may reflect avascular necrosis in the proper clinical setting. Soft tissues: The soft tissues appear unremarkable. 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 Signed by: Dr. Omer Crump M.D. on 10/29/2019 5:46 PM Dictated By: ABIGAIL CRUMP MD, MD 45 Transcribed By: LIANNA on 10/29/191745 COPY TO: HERSON MANRIQUE MD CHEST SINGLE (PORTABLE) 2019-10-23 11:34:00 [place] [address] Patient Name: CAMILLE PEREA MR #: [id number] : 1940 Age/Sex: 79/F Req #: [id number] Adm Physician: Ordered by: HERMAN PALACIOS SENIOR [employer] COMP[employer] TEAM LEAD Report #: [id number] Location: ER Room/Bed: Procedure: [id number] DX/CHEST SINGLE (PORTABLE) Exam Date: 10/23/19 Exam Time: 1040 REPORT STATUS: Signed EXAM: CHEST SINGLE (PORTABLE) DATE: 10/23/2019 10:30 AM INDICATION: Fever, cough, chest pain COMPARISON: None FINDINGS: The trachea is midline. There are minimal bibasilar opacities suggestive of atelectasis. The lungs are otherwise symmetrically expanded without evidence for large focal consolidation, pneumothorax, or significant pleural effusion. The cardiac silhouette appears mildly prominent which is likely secondary to technique. Atherosclerotic calcifications are noted within the aortic arch. Vascular stent noted in the left subclavian region. The visualized osseous structures demonstrate degenerative changes. No acute osseous abnormality identified. IMPRESSION: No acute cardiopulmonary process identified. Signed by: Dr. Paulo Gramajo MD on 10/23/2019 11:37 AM Dictated By: PAULO GRAMAJO MD 113 Transcribed By: LIANNA on 10/23/19 1137 COPY TO: HERMAN PALACIOS NP GLUBED 2019-08-02 16:43:00 GLUBED (test code=GLUBED) 181 mg/dL 74-106 Performed by certified cover stitch machine operator at [facility] [id number] 16:43:00* Test Item Value Reference Range Comments GLUBED (test code=GLUBED) 125 mg/dL 74-106 Performed by certified cover stitch machine operator at [facility] [id number] 08:36:00* Test Item Value Reference Range Comments GLUBED (test code=GLUBED) 125 mg/dL 74-106 Performed by certified cover stitch machine operator at [facility] CBC W/AUTO [id number] 07:00:00* Test Item Value Reference Range Comments WHITE BLOOD CELL (test code=WBC) 3.0 K/mm3 4.5-12.5 RED BLOOD CELL (test code=RBC) 3.97 mill/mm3 3.7-5.2 HEMOGLOBIN (test code=HGB) 11.2 gram/dL 11.5-15.5 HEMATOCRIT (test code=HCT) 35.6 % 36.0-46.0 MEAN CELL VOLUME (test code=MCV) 89.7 fL 80-98 MEAN CELL HGB (test code=MCH) 28.2 picogram 27.0-33.0 MEAN CELL HGB CONCETRATION (test code=MCHC) 31.5 gram/dL 33.0-36.0 RED CELL DISTRIBUTION WIDTH (test code=RDW) 14.3 % 11.6-16.2 RED CELL DISTRIBUTION WIDTH SD (test code=RDW-SD) 47.3 fL 37.0-51.0 PLATELET COUNT (test code=PLT) 236 K/mm3 150-450 MEAN PLATELET VOLUME (test code=MPV) 10.2 fL 6.7-11.0 NEUTROPHIL % (test code=NT%) 81.4 % 39.0-69.0 IMMATURE GRANULOCYTE % (test code=IG%) 0.3 % 0.0-5.0 LYMPHOCYTE % (test code=LY%) 13.3 % 25.0-55.0 MONOCYTE % (test code=MO%) 5.0 % 0.0-10.0 EOSINOPHIL % (test code=EO%) 0.0 % 0.0-5.0 BASOPHIL % (test code=BA%) 0.0 % 0.0-1.0 NUCLEATED RBC % (test code=NRBC%) 0.0 % 0-0 NEUTROPHIL # (test code=NT#) 2.45 K/mm3 1.8-7.7 IMMATURE GRANULOCYTE # (test code=IG#) 0.01 x10 3/uL 0-0.03 LYMPHOCYTE # (test code=LY#) 0.40 K/mm3 1.0-5.0 MONOCYTE # (test code=MO#) 0.15 K/mm3 0-0.8 EOSINOPHIL # (test code=EO#) 0.00 K/mm3 0.0-0.5 BASOPHIL # (test code=BA#) 0.00 K/mm3 0.0-0.2 NUCLEATED RBC # (test code=NRBC#) 0.00 K/mm3 0.0-0.1 MANUAL DIFF REQUIRED (test code=MDIFF) NO BASIC METABOLIC [id number] 06:56:00* Test Item Value Reference Range Comments SODIUM (test code=NA) 141 mmol/L 136-145 POTASSIUM (test code=K) 5.2 mmol/L 3.5-5.1 CHLORIDE (test code=CL) 104.0 mmol/L 98-107 CARBON DIOXIDE (test code=CO2) 25.0 mmol/L 21-32 ANION GAP (test code=GAP) 17.2 10-20 GLUCOSE (test code=GLU) 148 mg/dL 74-106 BLOOD UREA NITROGEN (test code=BUN) 63 mg/dL 7-18 GLOMERULAR FILTRATION RATE (test code=GFR) 4 mL/min >=60 Estimated GFR by using Modified MDRD formula.Chronic kidney disease is defined as either kidney damageor GFR <60 mL/min/1.73 m2 for >3 months. CREATININE (test code=CREAT) 9.40 mg/dL 0.55-1.02 Note change in reference range due to change in reagent. BUN/CREATININE RATIO (test code=BUN/CREA) 6.7 10-20 CALCIUM (test code=CA) 8.7 mg/dL 8.5-10.1 [id number] 20:18:00* Test Item Value Reference Range Comments GLUBED (test code=GLUBED) 245 mg/dL 74-106 Performed by certified cover stitch machine operator at [facility] [id number] 16:25:00* Test Item Value Reference Range Comments GLUBED (test code=GLUBED) 120 mg/dL 74-106 Performed by certified cover stitch machine operator at [facility] URIC [id number] 13:22:00* Test Item Value Reference Range Comments URIC ACID (test code=URIC) 5.7 mg/dL 2.6-7.2 [id number] 11:15:00* Test Item Value Reference Range Comments GLUBED (test code=GLUBED) 97 mg/dL 74-106 Performed by certified cover stitch machine operator at [facility] [id number] 08:23:00* Test Item Value Reference Range Comments GLUBED (test code=GLUBED) 89 mg/dL 74-106 Performed by certified cover stitch machine operator at [facility] [id number] 22:11:00* Test Item Value Reference Range Comments GLUBED (test code=GLUBED) 90 mg/dL 74-106 Performed by certified cover stitch machine operator at [facility] [id number] 20:46:00* Test Item Value Reference Range Comments TROPONIN-I (test code=TROPI) 0.160 ng/mL 0-0.045 PREVIOUSLY CALLED COMMENTS TO FIRST LINE PRODUCTION SUPERVISOR: COLLECT 3 HOURS AFTER PREVIOUS [id number] 16:51:00* Test Item Value Reference Range Comments GLUBED (test code=GLUBED) 82 mg/dL 74-106 [facility] certified cover stitch machine [facility]~ [id number] 16:31:00* Test Item Value Reference Range Comments TROPONIN-I (test code=TROPI) 0.142 ng/mL 0-0.045 PREVIOUSLY CALLED COMMENTS TO FIRST LINE PRODUCTION SUPERVISOR: COLLECT 3 HOURS AFTER PREVIOUS [id number] 16:06:00* Test Item Value Reference Range Comments GLYCOSYLATED HEMOGLOBIN (HA1C) (test code=GLYHGB) 5.3 % HbA1 4.8-6.0 ESTIMATED AVERAGE GLUCOSE (test code=EAG) 105 MG/DL LIPID PROFILE (CORONARY RISK)2019-07-31 15:42:00* Test Item Value Reference Range Comments TRIGLYCERIDES (test code=TRIG) 107 mg/dL 20-150 CHOLESTEROL (test code=CHOL) 152 mg/dL 0-200 CHOLESTEROL/HDL RATIO (test code=CHOLHDL) 3.0 RATIO 0-4.9 RISK ASSOCIATED WITH CHOL/HDL RATIOS: Risk Male Female1/2 AVERAGE 3.43 3.27AVERAGE 4.97 4.442X AVERAGE 9.55 7.053X AVERAGE 23.39 11.04 REFERENCE VALUE IS RELATED TO RISK LEVELS ASRECOMMENDED BY THE BUDDY. HEART, LUNG, AND BLOOD INST. HDL CHOLESTEROL (test code=HDL) 43 mg/dL 40-60 LIPOPROTEIN LDL (test code=LDL) 98 mg/dL 100-129 Reference Interval: mg/dL mmol/L Optimal <100 <2.6Near/above optimal 100-129 2.6- 3.3Borderline High 130-159 3.4-4.1High 160-189 4.1-4.9Very High >=190 >=4.9=========This LDL result is a direct measurement.========= BASIC METABOLIC [id number] 11:50:00* Test Item Value Reference Range Comments SODIUM (test code=NA) 137 mmol/L 136-145 POTASSIUM (test code=K) 5.4 mmol/L 3.5-5.1 CHLORIDE (test code=CL) 97.0 mmol/L 98-107 CARBON DIOXIDE (test code=CO2) 27.0 mmol/L 21-32 ANION GAP (test code=GAP) 18.4 10-20 GLUCOSE (test code=GLU) 86 mg/dL 74-106 BLOOD UREA NITROGEN (test code=BUN) 88 mg/dL 7-18 GLOMERULAR FILTRATION RATE (test code=GFR) 3 mL/min >=60 Estimated GFR by using Modified MDRD formula.Chronic kidney disease is defined as either kidney damageor GFR <60 mL/min/1.73 m2 for >3 months. CREATININE (test code=CREAT) 13.30 mg/dL 0.55-1.02 Note change in reference range due to change in reagent. BUN/CREATININE RATIO (test code=BUN/CREA) 6.6 10-20 CALCIUM (test code=CA) 8.7 mg/dL 8.5-10.1 HEPATIC FUNCTION [id number] 11:50:00* Test Item Value Reference Range Comments TOTAL PROTEIN (test code=PROT) 7.1 gram/dL 6.4-8.2 ALBUMIN (test code=ALB) 2.7 g/dL 3.4-5.0 GLOBULIN (test code=GLOB) 4.4 gram/dL 2.7-4.2 ALBUMIN/GLOBULIN RATIO (test code=A/G) 0.6 0.75-1.50 BILIRUBIN TOTAL (test code=BILT) 0.50 mg/dL 0.0-1.0 BILIRUBIN DIRECT (test code=BILD) 0.16 mg/dL 0.0-0.20 SGOT/AST (test code=AST) 16 IUnit/L 15-37 SGPT/ALT (test code=ALT) 16 IUnit/L 12-78 ALKALINE PHOSPHATASE TOTAL (test code=ALKP) 109 IUnit/L 45-117 Note change in reference range due to change in reagent. [id number] 11:50:00* Test Item Value Reference Range Comments TROPONIN-I (test code=TROPI) 0.131 ng/mL 0-0.045 Results called to [id number] by ALEX 07/31/19 1150Critical results verified and read back by Nurse? Y BASIC METABOLIC [id number] 11:36:00* Test Item Value Reference Range Comments SODIUM (test code=NA) 137 mmol/L 136-145 POTASSIUM (test code=K) 5.4 mmol/L 3.5-5.1 CHLORIDE (test code=CL) 97.0 mmol/L 98-107 CARBON DIOXIDE (test code=CO2) mmol/L 21-32 ANION GAP (test code=GAP) 10-20 GLUCOSE (test code=GLU) mg/dL 74-106 BLOOD UREA NITROGEN (test code=BUN) mg/dL 7-18 GLOMERULAR FILTRATION RATE (test code=GFR) mL/min >=60 CREATININE (test code=CREAT) mg/dL 0.55-1.02 BUN/CREATININE RATIO (test code=BUN/CREA) 10-20 CALCIUM (test code=CA) mg/dL 8.5-10.1 HEPATIC FUNCTION [id number] 11:36:00* Test Item Value Reference Range Comments TOTAL PROTEIN (test code=PROT) gram/dL 6.4-8.2 ALBUMIN (test code=ALB) g/dL 3.4-5.0 GLOBULIN (test code=GLOB) gram/dL 2.7-4.2 ALBUMIN/GLOBULIN RATIO (test code=A/G) 0.75-1.50 BILIRUBIN TOTAL (test code=BILT) mg/dL 0.0-1.0 BILIRUBIN DIRECT (test code=BILD) mg/dL 0.0-0.20 SGOT/AST (test code=AST) IUnit/L 15-37 SGPT/ALT (test code=ALT) IUnit/L 12-78 ALKALINE PHOSPHATASE TOTAL (test code=ALKP) IUnit/L 45-117 [id number] 11:36:00* Test Item Value Reference Range Comments TROPONIN-I (test code=TROPI) ng/mL 0-0.045 CBC W/O [id number] 11:26:00* Test Item Value Reference Range Comments WHITE BLOOD CELL (test code=WBC) 6.2 K/mm3 4.5-12.5 RED BLOOD CELL (test code=RBC) 4.09 mill/mm3 3.7-5.2 HEMOGLOBIN (test code=HGB) 11.8 gram/dL 11.5-15.5 HEMATOCRIT (test code=HCT) 36.7 % 36.0-46.0 MEAN CELL VOLUME (test code=MCV) 89.7 fL 80-98 MEAN CELL HGB (test code=MCH) 28.9 picogram 27.0-33.0 MEAN CELL HGB CONCETRATION (test code=MCHC) 32.2 gram/dL 33.0-36.0 RED CELL DISTRIBUTION WIDTH (test code=RDW) 14.8 % 11.6-16.2 PLATELET COUNT (test code=PLT) 259 K/mm3 150-450 MEAN PLATELET VOLUME (test code=MPV) 10.2 fL 6.7-11.0 CBC W/O [id number] 11:23:00* Test Item Value Reference Range Comments WHITE BLOOD CELL (test code=WBC) K/mm3 4.5-12.5 RED BLOOD CELL (test code=RBC) mill/mm3 3.7-5.2 HEMOGLOBIN (test code=HGB) 11.8 gram/dL 11.5-15.5 HEMATOCRIT (test code=HCT) 36.7 % 36.0-46.0 MEAN CELL VOLUME (test code=MCV) fL 80-98 MEAN CELL HGB (test code=MCH) picogram 27.0-33.0 MEAN CELL HGB CONCETRATION (test code=MCHC) gram/dL 33.0-36.0 RED CELL DISTRIBUTION WIDTH (test code=RDW) % 11.6-16.2 PLATELET COUNT (test code=PLT) K/mm3 150-450 MEAN PLATELET VOLUME (test code=MPV) fL 6.7-11.0 - XR CHEST 1 [id number] 11:04:00 FAX: Arturo Pathak MD [phone] [place]: B St: [facility] FAX: Steve Najera MD [phone] Name: CAMILLE PEREA [facility] : 1940 Age/S: 78/F [place] Unit #: [id number] Loc: [place] [address] Phys: Arturo Pathak MD Acct: [id number] Dis Date: Status: REG ER PHONE #: [phone] Exam Date: 07/31/2019 1047 FAX #: [phone] Reason: Abdominal Pain EXAMS: CPT CODE: [id number] XR CHEST 1 V [id number] REASON FOR EXAM: Abdominal Pain Exam Order Date: 07/31/2019 10:35 AM Ordering M.D.: Arturo Pathak MD PROCEDURE: - XR CHEST 1 V COMPARISON: CT chest August 02, 2017 FINDINGS: There is subsegmental atelectasis in the lung bases. Upper lungs are clear. There is no pleural effusion or pneumothorax. Pulmonary vascularity is within normal limits. Cardiomediastinal silhouette is enlarged. The mediastinal contours are within normal limits. Generative changes are present in the spine. Surgical clips are present in the soft tissues of the right axilla. The visualized upper abdomen is within normal limits. IMPRESSION: Mild subsegmental atelectasis in the lung bases. Upper lungs are clear. Cardiomegaly. This was also seen on the prior CT scan. at 1104 Reported and signed by: Mulugeta Lizarraga MD CC: Arturo Pathak MD; Steve Miguel MD Technologist: RT Bogdan(R) Trnscrd Date/Time/By: 07/31/2019 (5759) : By: [id number] Orig Print D/T: S: 07/31/2019 (5987) PAGE 1 Signed Report [id number] 17:03:00* Test Item Value Reference Range Comments GLUBED (test code=GLUBED) 139 mg/dL 74-106 Performed by certified cover stitch machine operator at [facility] [id number] 16:05:00* Test Item Value Reference Range Comments GLUBED (test code=GLUBED) 94 mg/dL 74-106 Performed by certified cover stitch machine operator at [facility] [id number] 08:37:00* Test Item Value Reference Range Comments GLUBED (test code=GLUBED) 75 mg/dL 74-106 Performed by certified cover stitch machine operator at [facility] COMPREHENSIVE METABOLIC [id number] 06:23:00* Test Item Value Reference Range Comments SODIUM (test code=NA) 139 mmol/L 136-145 POTASSIUM (test code=K) 4.8 mmol/L 3.5-5.1 CHLORIDE (test code=CL) 100.0 mmol/L 98-107 CARBON DIOXIDE (test code=CO2) 26.0 mmol/L 21-32 ANION GAP (test code=GAP) 17.8 10-20 GLUCOSE (test code=GLU) 101 mg/dL 74-106 BLOOD UREA NITROGEN (test code=BUN) 58 mg/dL 7-18 GLOMERULAR FILTRATION RATE (test code=GFR) 4 mL/min >=60 Estimated GFR by using Modified MDRD formula.Chronic kidney disease is defined as either kidney damageor GFR <60 mL/min/1.73 m2 for >3 months. CREATININE (test code=CREAT) 10.10 mg/dL 0.55-1.02 Note change in reference range due to change in reagent. BUN/CREATININE RATIO (test code=BUN/CREA) 5.7 10-20 TOTAL PROTEIN (test code=PROT) 6.2 gram/dL 6.4-8.2 ALBUMIN (test code=ALB) 2.6 g/dL 3.4-5.0 GLOBULIN (test code=GLOB) 3.6 gram/dL 2.7-4.2 ALBUMIN/GLOBULIN RATIO (test code=A/G) 0.7 0.75-1.50 CALCIUM (test code=CA) 8.3 mg/dL 8.5-10.1 BILIRUBIN TOTAL (test code=BILT) 0.40 mg/dL 0.0-1.0 SGOT/AST (test code=AST) 13 IUnit/L 15-37 SGPT/ALT (test code=ALT) 12 IUnit/L 12-78 ALKALINE PHOSPHATASE TOTAL (test code=ALKP) 116 IUnit/L 45-117 Note change in reference range due to change in reagent. COMPREHENSIVE METABOLIC [id number] 06:04:00* Test Item Value Reference Range Comments SODIUM (test code=NA) 139 mmol/L 136-145 POTASSIUM (test code=K) 4.8 mmol/L 3.5-5.1 CHLORIDE (test code=CL) 100.0 mmol/L 98-107 CARBON DIOXIDE (test code=CO2) mmol/L 21-32 ANION GAP (test code=GAP) 10-20 GLUCOSE (test code=GLU) mg/dL 74-106 BLOOD UREA NITROGEN (test code=BUN) mg/dL 7-18 GLOMERULAR FILTRATION RATE (test code=GFR) mL/min >=60 CREATININE (test code=CREAT) mg/dL 0.55-1.02 BUN/CREATININE RATIO (test code=BUN/CREA) 10-20 TOTAL PROTEIN (test code=PROT) gram/dL 6.4-8.2 ALBUMIN (test code=ALB) g/dL 3.4-5.0 GLOBULIN (test code=GLOB) gram/dL 2.7-4.2 ALBUMIN/GLOBULIN RATIO (test code=A/G) 0.75-1.50 CALCIUM (test code=CA) mg/dL 8.5-10.1 BILIRUBIN TOTAL (test code=BILT) mg/dL 0.0-1.0 SGOT/AST (test code=AST) IUnit/L 15-37 SGPT/ALT (test code=ALT) IUnit/L 12-78 ALKALINE PHOSPHATASE TOTAL (test code=ALKP) IUnit/L 45-117 CBC W/AUTO [id number] 05:45:00* Test Item Value Reference Range Comments WHITE BLOOD CELL (test code=WBC) 5.6 K/mm3 4.5-12.5 RED BLOOD CELL (test code=RBC) 4.33 mill/mm3 3.7-5.2 HEMOGLOBIN (test code=HGB) 12.2 gram/dL 11.5-15.5 HEMATOCRIT (test code=HCT) 39.7 % 36.0-46.0 MEAN CELL VOLUME (test code=MCV) 91.7 fL 80-98 MEAN CELL HGB (test code=MCH) 28.2 picogram 27.0-33.0 MEAN CELL HGB CONCETRATION (test code=MCHC) 30.7 gram/dL 33.0-36.0 RED CELL DISTRIBUTION WIDTH (test code=RDW) 15.2 % 11.6-16.2 RED CELL DISTRIBUTION WIDTH SD (test code=RDW-SD) 51.4 fL 37.0-51.0 PLATELET COUNT (test code=PLT) 156 K/mm3 150-450 MEAN PLATELET VOLUME (test code=MPV) 10.2 fL 6.7-11.0 NEUTROPHIL % (test code=NT%) 57.6 % 39.0-69.0 IMMATURE GRANULOCYTE % (test code=IG%) 0.4 % 0.0-5.0 LYMPHOCYTE % (test code=LY%) 25.6 % 25.0-55.0 MONOCYTE % (test code=MO%) 12.3 % 0.0-10.0 EOSINOPHIL % (test code=EO%) 3.4 % 0.0-5.0 BASOPHIL % (test code=BA%) 0.7 % 0.0-1.0 NUCLEATED RBC % (test code=NRBC%) 0.0 % 0-0 NEUTROPHIL # (test code=NT#) 3.24 K/mm3 1.8-7.7 IMMATURE GRANULOCYTE # (test code=IG#) 0.02 x10 3/uL 0-0.03 LYMPHOCYTE # (test code=LY#) 1.44 K/mm3 1.0-5.0 MONOCYTE # (test code=MO#) 0.69 K/mm3 0-0.8 EOSINOPHIL # (test code=EO#) 0.19 K/mm3 0.0-0.5 BASOPHIL # (test code=BA#) 0.04 K/mm3 0.0-0.2 NUCLEATED RBC # (test code=NRBC#) 0.00 K/mm3 0.0-0.1 CBC W/AUTO [id number] 05:33:00* Test Item Value Reference Range Comments WHITE BLOOD CELL (test code=WBC) K/mm3 4.5-12.5 RED BLOOD CELL (test code=RBC) mill/mm3 3.7-5.2 HEMOGLOBIN (test code=HGB) 12.2 gram/dL 11.5-15.5 HEMATOCRIT (test code=HCT) 39.7 % 36.0-46.0 MEAN CELL VOLUME (test code=MCV) fL 80-98 MEAN CELL HGB (test code=MCH) picogram 27.0-33.0 MEAN CELL HGB CONCETRATION (test code=MCHC) gram/dL 33.0-36.0 RED CELL DISTRIBUTION WIDTH (test code=RDW) % 11.6-16.2 RED CELL DISTRIBUTION WIDTH SD (test code=RDW-SD) fL 37.0-51.0 PLATELET COUNT (test code=PLT) K/mm3 150-450 MEAN PLATELET VOLUME (test code=MPV) fL 6.7-11.0 NEUTROPHIL % (test code=NT%) % 39.0-69.0 IMMATURE GRANULOCYTE % (test code=IG%) % 0.0-5.0 LYMPHOCYTE % (test code=LY%) % 25.0-55.0 MONOCYTE % (test code=MO%) % 0.0-10.0 EOSINOPHIL % (test code=EO%) % 0.0-5.0 BASOPHIL % (test code=BA%) % 0.0-1.0 NEUTROPHIL # (test code=NT#) K/mm3 1.8-7.7 LYMPHOCYTE # (test code=LY#) K/mm3 1.0-5.0 MONOCYTE # (test code=MO#) K/mm3 0-0.8 EOSINOPHIL # (test code=EO#) K/mm3 0.0-0.5 BASOPHIL # (test code=BA#) K/mm3 0.0-0.2 [id number] 20:41:00* Test Item Value Reference Range Comments GLUBED (test code=GLUBED) 127 mg/dL 74-106 Performed by certified cover stitch machine operator at [facility] [id number] 16:06:00* Test Item Value Reference Range Comments GLUBED (test code=GLUBED) 163 mg/dL 74-106 Performed by certified cover stitch machine [facility]~ [id number] 12:04:00* Test Item Value Reference Range Comments GLUBED (test code=GLUBED) 84 mg/dL 74-106 Performed by certified cover stitch machine operator at [facility] [id number] 08:44:00* Test Item Value Reference Range Comments GLUBED (test code=GLUBED) 70 mg/dL 74-106 Performed by certified cover stitch machine operator at [facility] [id number] 21:40:00* Test Item Value Reference Range Comments GLUBED (test code=GLUBED) 104 mg/dL 74-106 Performed by certified cover stitch machine operator at [facility] [id number] 16:20:00* Test Item Value Reference Range Comments GLUBED (test code=GLUBED) 125 mg/dL 74-106 Performed by certified cover stitch machine operator at [facility] [id number] 12:06:00* Test Item Value Reference Range Comments GLUBED (test code=GLUBED) 139 mg/dL 74-106 Performed by certified cover stitch machine operator at [facility] [id number] 08:11:00* Test Item Value Reference Range Comments GLUBED (test code=GLUBED) 90 mg/dL 74-106 Performed by certified cover stitch machine operator at [facility] AB HEPATITIS B [id number] 07:13:00* Test Item Value Reference Range Comments AB HEPATITIS B SURFACE (test code=HBSAB) Non Reactive () Non Reactive: Inconsistent with immunity, less than 10 mIU/mL Reactive: Consistent with immunity, greater than 9.9 mIU/mLPerformed At: [facility] [address] [id number] Jeremías Le MD Ph:[phone] [id number] 16:53:00* Test Item Value Reference Range Comments GLUBED (test code=GLUBED) 153 mg/dL 74-106 Performed by certified cover stitch machine operator at [facility] COMPREHENSIVE METABOLIC [id number] 06:41:00* Test Item Value Reference Range Comments SODIUM (test code=NA) 141 mmol/L 136-145 POTASSIUM (test code=K) 5.7 mmol/L 3.5-5.1 CHLORIDE (test code=CL) 99.0 mmol/L 98-107 CARBON DIOXIDE (test code=CO2) 28.0 mmol/L 21-32 ANION GAP (test code=GAP) 19.7 10-20 GLUCOSE (test code=GLU) 95 mg/dL 74-106 BLOOD UREA NITROGEN (test code=BUN) 41 mg/dL 7-18 GLOMERULAR FILTRATION RATE (test code=GFR) 5 mL/min >=60 Estimated GFR by using Modified MDRD formula.Chronic kidney disease is defined as either kidney damageor GFR <60 mL/min/1.73 m2 for >3 months. CREATININE (test code=CREAT) 8.50 mg/dL 0.55-1.02 Note change in reference range due to change in reagent. BUN/CREATININE RATIO (test code=BUN/CREA) 4.8 10-20 TOTAL PROTEIN (test code=PROT) 6.8 gram/dL 6.4-8.2 ALBUMIN (test code=ALB) 3.0 g/dL 3.4-5.0 GLOBULIN (test code=GLOB) 3.8 gram/dL 2.7-4.2 ALBUMIN/GLOBULIN RATIO (test code=A/G) 0.8 0.75-1.50 CALCIUM (test code=CA) 8.3 mg/dL 8.5-10.1 BILIRUBIN TOTAL (test code=BILT) 0.50 mg/dL 0.0-1.0 SGOT/AST (test code=AST) 9 IUnit/L 15-37 SGPT/ALT (test code=ALT) 10 IUnit/L 12-78 ALKALINE PHOSPHATASE TOTAL (test code=ALKP) 121 IUnit/L 45-117 Note change in reference range due to change in reagent. LIPID PROFILE (CORONARY RISK)2019-07-19 06:41:00* Test Item Value Reference Range Comments TRIGLYCERIDES (test code=TRIG) 133 mg/dL 20-150 CHOLESTEROL (test code=CHOL) 173 mg/dL 0-200 CHOLESTEROL/HDL RATIO (test code=CHOLHDL) 3.0 RATIO 0-4.9 RISK ASSOCIATED WITH CHOL/HDL RATIOS: Risk Male Female1/2 AVERAGE 3.43 3.27AVERAGE 4.97 4.442X AVERAGE 9.55 7.053X AVERAGE 23.39 11.04 REFERENCE VALUE IS RELATED TO RISK LEVELS ASRECOMMENDED BY THE BUDDY. HEART, LUNG, AND BLOOD INST. HDL CHOLESTEROL (test code=HDL) 45 mg/dL 40-60 LIPOPROTEIN LDL (test code=LDL) 106 mg/dL 100-129 RN PERSONNEL, CONTACT PHYSICIAN IMMEDIATELY IF THIS IS A STROKE, AMI OR CAROTID STENOSIS PATIENT WHEN THE LDL >100 (1ST OCCURENCE, THIS ADMISSION) Reference Interval: mg/dL mmol/L Optimal <100 <2.6Near/above optimal 100-129 2.6- 3.3Borderline High 130-159 3.4-4.1High 160-189 4.1-4.9Very High >=190 >=4.9=========This LDL result is a direct measurement.========= THYROID STIMULATING [id number] 06:41:00* Test Item Value Reference Range Comments THYROID STIMULATING HORMONE (test code=TSH) 2.060 uIU/mL 0.36-3.74 TSH REFERENCE RANGES: EUTHYROID: 0.35 - 4.3 mIU/mL HYPO : > 5.5 mIU/mL HYPER : < 0.35 mIU/mL [id number] 06:34:00* Test Item Value Reference Range Comments GLYCOSYLATED HEMOGLOBIN (HA1C) (test code=GLYHGB) 5.6 % HbA1 4.8-6.0 ESTIMATED AVERAGE GLUCOSE (test code=EAG) 114 MG/DL COMPREHENSIVE METABOLIC [id number] 06:19:00* Test Item Value Reference Range Comments SODIUM (test code=NA) 141 mmol/L 136-145 POTASSIUM (test code=K) 5.7 mmol/L 3.5-5.1 CHLORIDE (test code=CL) 99.0 mmol/L 98-107 CARBON DIOXIDE (test code=CO2) mmol/L 21-32 ANION GAP (test code=GAP) 10-20 GLUCOSE (test code=GLU) mg/dL 74-106 BLOOD UREA NITROGEN (test code=BUN) mg/dL 7-18 GLOMERULAR FILTRATION RATE (test code=GFR) mL/min >=60 CREATININE (test code=CREAT) mg/dL 0.55-1.02 BUN/CREATININE RATIO (test code=BUN/CREA) 10-20 TOTAL PROTEIN (test code=PROT) gram/dL 6.4-8.2 ALBUMIN (test code=ALB) g/dL 3.4-5.0 GLOBULIN (test code=GLOB) gram/dL 2.7-4.2 ALBUMIN/GLOBULIN RATIO (test code=A/G) 0.75-1.50 CALCIUM (test code=CA) mg/dL 8.5-10.1 BILIRUBIN TOTAL (test code=BILT) mg/dL 0.0-1.0 SGOT/AST (test code=AST) IUnit/L 15-37 SGPT/ALT (test code=ALT) IUnit/L 12-78 ALKALINE PHOSPHATASE TOTAL (test code=ALKP) IUnit/L 45-117 LIPID PROFILE (CORONARY RISK)2019-07-19 06:19:00* Test Item Value Reference Range Comments TRIGLYCERIDES (test code=TRIG) mg/dL 20-150 CHOLESTEROL (test code=CHOL) mg/dL 0-200 CHOLESTEROL/HDL RATIO (test code=CHOLHDL) RATIO 0-4.9 HDL CHOLESTEROL (test code=HDL) mg/dL 40-60 LIPOPROTEIN LDL (test code=LDL) mg/dL 100-129 THYROID STIMULATING [id number] 06:19:00* Test Item Value Reference Range Comments THYROID STIMULATING HORMONE (test code=TSH) uIU/mL 0.36-3.74 CBC W/AUTO [id number] 06:07:00* Test Item Value Reference Range Comments WHITE BLOOD CELL (test code=WBC) 6.4 K/mm3 4.5-12.5 RED BLOOD CELL (test code=RBC) 5.07 mill/mm3 3.7-5.2 HEMOGLOBIN (test code=HGB) 14.4 gram/dL 11.5-15.5 HEMATOCRIT (test code=HCT) 46.9 % 36.0-46.0 MEAN CELL VOLUME (test code=MCV) 92.5 fL 80-98 MEAN CELL HGB (test code=MCH) 28.4 picogram 27.0-33.0 MEAN CELL HGB CONCETRATION (test code=MCHC) 30.7 gram/dL 33.0-36.0 RED CELL DISTRIBUTION WIDTH (test code=RDW) 15.9 % 11.6-16.2 RED CELL DISTRIBUTION WIDTH SD (test code=RDW-SD) 53.2 fL 37.0-51.0 PLATELET COUNT (test code=PLT) 143 K/mm3 150-450 MEAN PLATELET VOLUME (test code=MPV) 9.8 fL 6.7-11.0 NEUTROPHIL % (test code=NT%) 54.8 % 39.0-69.0 IMMATURE GRANULOCYTE % (test code=IG%) 0.5 % 0.0-5.0 LYMPHOCYTE % (test code=LY%) 26.8 % 25.0-55.0 MONOCYTE % (test code=MO%) 15.6 % 0.0-10.0 EOSINOPHIL % (test code=EO%) 1.7 % 0.0-5.0 BASOPHIL % (test code=BA%) 0.6 % 0.0-1.0 NUCLEATED RBC % (test code=NRBC%) 0.0 % 0-0 NEUTROPHIL # (test code=NT#) 3.51 K/mm3 1.8-7.7 IMMATURE GRANULOCYTE # (test code=IG#) 0.03 x10 3/uL 0-0.03 LYMPHOCYTE # (test code=LY#) 1.72 K/mm3 1.0-5.0 MONOCYTE # (test code=MO#) 1.00 K/mm3 0-0.8 EOSINOPHIL # (test code=EO#) 0.11 K/mm3 0.0-0.5 BASOPHIL # (test code=BA#) 0.04 K/mm3 0.0-0.2 NUCLEATED RBC # (test code=NRBC#) 0.00 K/mm3 0.0-0.1 MANUAL DIFF REQUIRED (test code=MDIFF) NO [id number] 16:04:00* Test Item Value Reference Range Comments GLUBED (test code=GLUBED) 152 mg/dL 74-106 Performed by certified cover stitch machine operator at [facility] COMPREHENSIVE METABOLIC [id number] 06:38:00* Test Item Value Reference Range Comments SODIUM (test code=NA) 140 mmol/L 136-145 POTASSIUM (test code=K) 4.2 mmol/L 3.5-5.1 CHLORIDE (test code=CL) 103.0 mmol/L 98-107 CARBON DIOXIDE (test code=CO2) 25.0 mmol/L 21-32 ANION GAP (test code=GAP) 16.2 10-20 GLUCOSE (test code=GLU) 88 mg/dL 74-106 BLOOD UREA NITROGEN (test code=BUN) 29 mg/dL 7-18 GLOMERULAR FILTRATION RATE (test code=GFR) 6 mL/min >=60 Estimated GFR by using Modified MDRD formula.Chronic kidney disease is defined as either kidney damageor GFR <60 mL/min/1.73 m2 for >3 months. CREATININE (test code=CREAT) 6.70 mg/dL 0.55-1.02 Note change in reference range due to change in reagent. BUN/CREATININE RATIO (test code=BUN/CREA) 4.3 10-20 TOTAL PROTEIN (test code=PROT) 6.9 gram/dL 6.4-8.2 ALBUMIN (test code=ALB) 2.8 g/dL 3.4-5.0 GLOBULIN (test code=GLOB) 4.1 gram/dL 2.7-4.2 ALBUMIN/GLOBULIN RATIO (test code=A/G) 0.7 0.75-1.50 CALCIUM (test code=CA) 8.3 mg/dL 8.5-10.1 BILIRUBIN TOTAL (test code=BILT) 0.50 mg/dL 0.0-1.0 SGOT/AST (test code=AST) 7 IUnit/L 15-37 SGPT/ALT (test code=ALT) 10 IUnit/L 12-78 ALKALINE PHOSPHATASE TOTAL (test code=ALKP) 118 IUnit/L 45-117 Note change in reference range due to change in reagent. COMPREHENSIVE METABOLIC [id number] 06:24:00* Test Item Value Reference Range Comments SODIUM (test code=NA) 140 mmol/L 136-145 POTASSIUM (test code=K) 4.2 mmol/L 3.5-5.1 CHLORIDE (test code=CL) 103.0 mmol/L 98-107 CARBON DIOXIDE (test code=CO2) mmol/L 21-32 ANION GAP (test code=GAP) 10-20 GLUCOSE (test code=GLU) mg/dL 74-106 BLOOD UREA NITROGEN (test code=BUN) mg/dL 7-18 GLOMERULAR FILTRATION RATE (test code=GFR) mL/min >=60 CREATININE (test code=CREAT) mg/dL 0.55-1.02 BUN/CREATININE RATIO (test code=BUN/CREA) 10-20 TOTAL PROTEIN (test code=PROT) gram/dL 6.4-8.2 ALBUMIN (test code=ALB) g/dL 3.4-5.0 GLOBULIN (test code=GLOB) gram/dL 2.7-4.2 ALBUMIN/GLOBULIN RATIO (test code=A/G) 0.75-1.50 CALCIUM (test code=CA) mg/dL 8.5-10.1 BILIRUBIN TOTAL (test code=BILT) mg/dL 0.0-1.0 SGOT/AST (test code=AST) IUnit/L 15-37 SGPT/ALT (test code=ALT) IUnit/L 12-78 ALKALINE PHOSPHATASE TOTAL (test code=ALKP) IUnit/L 45-117 CBC W/AUTO [id number] 06:06:00* Test Item Value Reference Range Comments WHITE BLOOD CELL (test code=WBC) 6.6 K/mm3 4.5-12.5 RED BLOOD CELL (test code=RBC) 5.15 mill/mm3 3.7-5.2 HEMOGLOBIN (test code=HGB) 14.3 gram/dL 11.5-15.5 HEMATOCRIT (test code=HCT) 46.2 % 36.0-46.0 MEAN CELL VOLUME (test code=MCV) 89.7 fL 80-98 MEAN CELL HGB (test code=MCH) 27.8 picogram 27.0-33.0 MEAN CELL HGB CONCETRATION (test code=MCHC) 31.0 gram/dL 33.0-36.0 RED CELL DISTRIBUTION WIDTH (test code=RDW) 15.9 % 11.6-16.2 RED CELL DISTRIBUTION WIDTH SD (test code=RDW-SD) 52.2 fL 37.0-51.0 PLATELET COUNT (test code=PLT) 148 K/mm3 150-450 MEAN PLATELET VOLUME (test code=MPV) 10.2 fL 6.7-11.0 NEUTROPHIL % (test code=NT%) 63.5 % 39.0-69.0 IMMATURE GRANULOCYTE % (test code=IG%) 0.5 % 0.0-5.0 LYMPHOCYTE % (test code=LY%) 17.0 % 25.0-55.0 MONOCYTE % (test code=MO%) 17.0 % 0.0-10.0 EOSINOPHIL % (test code=EO%) 1.5 % 0.0-5.0 BASOPHIL % (test code=BA%) 0.5 % 0.0-1.0 NUCLEATED RBC % (test code=NRBC%) 0.0 % 0-0 NEUTROPHIL # (test code=NT#) 4.20 K/mm3 1.8-7.7 IMMATURE GRANULOCYTE # (test code=IG#) 0.03 x10 3/uL 0-0.03 LYMPHOCYTE # (test code=LY#) 1.12 K/mm3 1.0-5.0 MONOCYTE # (test code=MO#) 1.12 K/mm3 0-0.8 EOSINOPHIL # (test code=EO#) 0.10 K/mm3 0.0-0.5 BASOPHIL # (test code=BA#) 0.03 K/mm3 0.0-0.2 NUCLEATED RBC # (test code=NRBC#) 0.00 K/mm3 0.0-0.1 MANUAL DIFF REQUIRED (test code=MDIFF) NO CBC W/AUTO [id number] 05:58:00* Test Item Value Reference Range Comments WHITE BLOOD CELL (test code=WBC) K/mm3 4.5-12.5 RED BLOOD CELL (test code=RBC) mill/mm3 3.7-5.2 HEMOGLOBIN (test code=HGB) 14.3 gram/dL 11.5-15.5 HEMATOCRIT (test code=HCT) % 36.0-46.0 MEAN CELL VOLUME (test code=MCV) fL 80-98 MEAN CELL HGB (test code=MCH) picogram 27.0-33.0 MEAN CELL HGB CONCETRATION (test code=MCHC) gram/dL 33.0-36.0 RED CELL DISTRIBUTION WIDTH (test code=RDW) % 11.6-16.2 RED CELL DISTRIBUTION WIDTH SD (test code=RDW-SD) fL 37.0-51.0 PLATELET COUNT (test code=PLT) K/mm3 150-450 MEAN PLATELET VOLUME (test code=MPV) fL 6.7-11.0 NEUTROPHIL % (test code=NT%) % 39.0-69.0 IMMATURE GRANULOCYTE % (test code=IG%) % 0.0-5.0 LYMPHOCYTE % (test code=LY%) % 25.0-55.0 MONOCYTE % (test code=MO%) % 0.0-10.0 EOSINOPHIL % (test code=EO%) % 0.0-5.0 BASOPHIL % (test code=BA%) % 0.0-1.0 NEUTROPHIL # (test code=NT#) K/mm3 1.8-7.7 LYMPHOCYTE # (test code=LY#) K/mm3 1.0-5.0 MONOCYTE # (test code=MO#) K/mm3 0-0.8 EOSINOPHIL # (test code=EO#) K/mm3 0.0-0.5 BASOPHIL # (test code=BA#) K/mm3 0.0-0.2 AG HEPAT B [id number] 13:13:00* Test Item Value Reference Range Comments AG HEPAT B SURF (test code=HBSAG) Nonreactive Index Nonreactive SED [id number] 10:19:00* Test Item Value Reference Range Comments SED RATE (test code=SEDW) 20 mm/hr 0-20 WINTROBE METHOD: NORMAL RANGE FOR MEN: 0-9 MM/HR WOMAN: 0-20 MM/HR SED RATE [id number] 10:18:00* Test Item Value Reference Range Comments SED RATE WESTERGREN (test code=SEDW) 20 mm/hr 0-20 COMPREHENSIVE METABOLIC [id number] 03:16:00* Test Item Value Reference Range Comments SODIUM (test code=NA) 141 mmol/L 136-145 POTASSIUM (test code=K) 4.4 mmol/L 3.5-5.1 CHLORIDE (test code=CL) 103.0 mmol/L 98-107 CARBON DIOXIDE (test code=CO2) 22.0 mmol/L 21-32 ANION GAP (test code=GAP) 20.4 10-20 GLUCOSE (test code=GLU) 63 mg/dL 74-106 BLOOD UREA NITROGEN (test code=BUN) 69 mg/dL 7-18 RESULT VERIFIED BY REPEAT ANALYSIS GLOMERULAR FILTRATION RATE (test code=GFR) 3 mL/min >=60 Estimated GFR by using Modified MDRD formula.Chronic kidney disease is defined as either kidney damageor GFR <60 mL/min/1.73 m2 for >3 months. CREATININE (test code=CREAT) 11.00 mg/dL 0.55-1.02 Note change in reference range due to change in reagent. BUN/CREATININE RATIO (test code=BUN/CREA) 6.3 10-20 TOTAL PROTEIN (test code=PROT) 6.7 gram/dL 6.4-8.2 ALBUMIN (test code=ALB) 2.7 g/dL 3.4-5.0 GLOBULIN (test code=GLOB) 4.0 gram/dL 2.7-4.2 ALBUMIN/GLOBULIN RATIO (test code=A/G) 0.7 0.75-1.50 CALCIUM (test code=CA) 8.4 mg/dL 8.5-10.1 BILIRUBIN TOTAL (test code=BILT) 0.60 mg/dL 0.0-1.0 SGOT/AST (test code=AST) 5 IUnit/L 15-37 SGPT/ALT (test code=ALT) 11 IUnit/L 12-78 ALKALINE PHOSPHATASE TOTAL (test code=ALKP) 113 IUnit/L 45-117 Note change in reference range due to change in reagent. CBC W/AUTO [id number] 03:15:00* Test Item Value Reference Range Comments WHITE BLOOD CELL (test code=WBC) 6.1 K/mm3 4.5-12.5 RED BLOOD CELL (test code=RBC) 4.93 mill/mm3 3.7-5.2 HEMOGLOBIN (test code=HGB) 13.9 gram/dL 11.5-15.5 RESULT VERIFIED BY REPEAT ANALYSIS HEMATOCRIT (test code=HCT) 44.5 % 36.0-46.0 MEAN CELL VOLUME (test code=MCV) 90.3 fL 80-98 MEAN CELL HGB (test code=MCH) 28.2 picogram 27.0-33.0 MEAN CELL HGB CONCETRATION (test code=MCHC) 31.2 gram/dL 33.0-36.0 RED CELL DISTRIBUTION WIDTH (test code=RDW) 15.9 % 11.6-16.2 RED CELL DISTRIBUTION WIDTH SD (test code=RDW-SD) 52.2 fL 37.0-51.0 PLATELET COUNT (test code=PLT) 140 K/mm3 150-450 MEAN PLATELET VOLUME (test code=MPV) 9.9 fL 6.7-11.0 NEUTROPHIL % (test code=NT%) 64.6 % 39.0-69.0 IMMATURE GRANULOCYTE % (test code=IG%) 0.3 % 0.0-5.0 LYMPHOCYTE % (test code=LY%) 18.8 % 25.0-55.0 MONOCYTE % (test code=MO%) 14.7 % 0.0-10.0 EOSINOPHIL % (test code=EO%) 1.3 % 0.0-5.0 BASOPHIL % (test code=BA%) 0.3 % 0.0-1.0 NUCLEATED RBC % (test code=NRBC%) 0.0 % 0-0 NEUTROPHIL # (test code=NT#) 3.96 K/mm3 1.8-7.7 IMMATURE GRANULOCYTE # (test code=IG#) 0.02 x10 3/uL 0-0.03 LYMPHOCYTE # (test code=LY#) 1.15 K/mm3 1.0-5.0 MONOCYTE # (test code=MO#) 0.90 K/mm3 0-0.8 EOSINOPHIL # (test code=EO#) 0.08 K/mm3 0.0-0.5 BASOPHIL # (test code=BA#) 0.02 K/mm3 0.0-0.2 NUCLEATED RBC # (test code=NRBC#) 0.00 K/mm3 0.0-0.1 MANUAL DIFF REQUIRED (test code=MDIFF) NO C REACTIVE [id number] 13:05:00* Test Item Value Reference Range Comments C REACTIVE PROTEIN (test code=CRP) 8.62 mg/dL 0-0.3 BASIC METABOLIC [id number] 12:21:00* Test Item Value Reference Range Comments SODIUM (test code=NA) 139 mmol/L 136-145 POTASSIUM (test code=K) 4.2 mmol/L 3.5-5.1 CHLORIDE (test code=CL) 101.0 mmol/L 98-107 CARBON DIOXIDE (test code=CO2) 26.0 mmol/L 21-32 ANION GAP (test code=GAP) 16.2 10-20 GLUCOSE (test code=GLU) 101 mg/dL 74-106 BLOOD UREA NITROGEN (test code=BUN) 52 mg/dL 7-18 GLOMERULAR FILTRATION RATE (test code=GFR) 4 mL/min >=60 Estimated GFR by using Modified MDRD formula.Chronic kidney disease is defined as either kidney damageor GFR <60 mL/min/1.73 m2 for >3 months. CREATININE (test code=CREAT) 10.30 mg/dL 0.55-1.02 Note change in reference range due to change in reagent. BUN/CREATININE RATIO (test code=BUN/CREA) 5.0 10-20 CALCIUM (test code=CA) 8.6 mg/dL 8.5-10.1 CREATINE KINASE (CK)2019-07-16 12:21:00* Test Item Value Reference Range Comments CREATINE KINASE (CK) (test code=CK) 32 IUnit/L 26-208 [id number] 12:21:00* Test Item Value Reference Range Comments MAGNESIUM (test code=MAG) 2.4 mg/dL 1.8-2.4 BASIC METABOLIC [id number] 12:13:00* Test Item Value Reference Range Comments SODIUM (test code=NA) 139 mmol/L 136-145 POTASSIUM (test code=K) 4.2 mmol/L 3.5-5.1 CHLORIDE (test code=CL) 101.0 mmol/L 98-107 CARBON DIOXIDE (test code=CO2) mmol/L 21-32 ANION GAP (test code=GAP) 10-20 GLUCOSE (test code=GLU) mg/dL 74-106 BLOOD UREA NITROGEN (test code=BUN) mg/dL 7-18 GLOMERULAR FILTRATION RATE (test code=GFR) mL/min >=60 CREATININE (test code=CREAT) mg/dL 0.55-1.02 BUN/CREATININE RATIO (test code=BUN/CREA) 10-20 CALCIUM (test code=CA) 8.6 mg/dL 8.5-10.1 CREATINE KINASE (CK)2019-07-16 12:13:00* Test Item Value Reference Range Comments CREATINE KINASE (CK) (test code=CK) IUnit/L 26-208 [id number] 12:13:00* Test Item Value Reference Range Comments MAGNESIUM (test code=MAG) mg/dL 1.8-2.4 CBC W/O [id number] 12:01:00* Test Item Value Reference Range Comments WHITE BLOOD CELL (test code=WBC) 7.7 K/mm3 4.5-12.5 RED BLOOD CELL (test code=RBC) 5.72 mill/mm3 3.7-5.2 HEMOGLOBIN (test code=HGB) 16.1 gram/dL 11.5-15.5 HEMATOCRIT (test code=HCT) 52.0 % 36.0-46.0 MEAN CELL VOLUME (test code=MCV) 90.9 fL 80-98 MEAN CELL HGB (test code=MCH) 28.1 picogram 27.0-33.0 MEAN CELL HGB CONCETRATION (test code=MCHC) 31.0 gram/dL 33.0-36.0 RED CELL DISTRIBUTION WIDTH (test code=RDW) 15.8 % 11.6-16.2 PLATELET COUNT (test code=PLT) 109 K/mm3 150-450 MEAN PLATELET VOLUME (test code=MPV) 9.8 fL 6.7-11.0 NOEMY DID NOT COLLECT [facility] @[employer].SP3 042- XR ANKLE 3 + V LT 2019-07-16 10:04:00 FAX: Steve Najera MD [phone] [place]: St: [facility] FAX: Suresh Marshall MD Name: CAMILLE PEREA [facility] : 1940 Age/S: 78/F [address] [facility] Unit #: [id number] Loc: [place] [address] Phys: Suresh Marshall MD Acct: [id number] Dis Date: Status: REG ER PHONE #: [phone] Exam Date: 07/16/2019 0903 FAX #: [phone] Reason: fall, pain EXAMS: CPT CODE: [id number] XR ANKLE 3 + [place] [address] CLINICAL HISTORY: L foot pain/swelling TECHNIQUE: AP, oblique, and lateral views of the left foot and ankle COMPARISON: None FINDINGS: There is a discontinuity of the medial malleolus that is seen only on the frontal view of the ankle radiograph. This may represent a minimally displaced fracture. No other fractures are appreciated. There is a small effusion of the ankle joint. Degenerative changes are present in the interphalangeal joints and first MTP joint of the foot. Prominent plantar enthesophyte is present. There is extensive vascular calcifications in the foot and ankle. IMPRESSION: Focal discontinuity of the cortex in the medial malleolus seen only on the frontal view of the ankle suggests minimally displaced fracture. No other fractures are seen. Degenerative changes in the right foot. at 1004 Reported and signed by: Mulugeta Lizarraga MD CC: Steve Miguel MD; Suresh Marshall MD Technologist: RT ANAHY(R) Trnscrd Date/Time/By: 07/16/2019 (1004) : By: [email or web address] Orig Print D/T: S: (1007) PAGE 1 Signed Rep ort - XR FOOT 3 + V [id number] 10:04:00 FAX: Maddie Dasilva NP [place]: St: REG FAX: Steve Najera MD [phone] Name: CAMILLE PEREA [facility] : 1940 Age/S: 78/F [address] [facility] Unit #: [id number] Loc: [place] [address] Phys: Maddie Dasilva NP Acct: [id number] Dis Date: Status: REG ER PHONE #: [phone] Exam Date: 07/16/2019902 FAX #: [phone] Reason: L foot pain/swelling EXAMS: CPT CODE: [id number] XR FOOT 3 + [place] [address] CLINICAL HISTORY: L foot pain/swelling TECHNIQUE: AP, oblique, and lateral views of the left foot and ankle COMPARISON: None FINDINGS: There is a discontinuity of the m edial malleolus that is seen only on the frontal view of the ankle radiogr aph. This may represent a minimally displaced fracture. No other fractures are appreciated. There is a small effusion of the ankle joint. Degenerative changes are present in the interphalangeal joints and first MTP joint of the foot. Prominent plantar enthesophyte is present. There is extensive vascular calcifications in the foot and ankle. IMPRESSION: Focal discontinuity of the cortex in the medial malleolus seen only on the frontal view of the ankle suggests m inimally displaced fracture. No other fractures are seen. Degene rative changes in the right foot. at 1004 Reported and signed by: Boni Lizarraga MD CC: Maddie Dasilva NP; Steve Miguel MD Technologist: RT ANAHY(R) Trnscrd Date/Time/By: 07/16/2019 (1004) : By: [email or web address] Orig Print D/T: S: (1007) PAGE 1 Signed Rep ort SED [id number] 18:33:00* Test Item Value Reference Range Comments SED RATE (test code=SEDW) 25 mm/hr 0-30 SED [id number] 18:32:00* Test Item Value Reference Range Comments SED RATE (test code=SEDW) 25 mm/hr 0-30 BASIC METABOLIC [id number] 14:30:00* Test Item Value Reference Range Comments SODIUM (test code=NA) 140 mmol/L 136-145 POTASSIUM (test code=K) 3.4 mmol/L 3.5-5.1 CHLORIDE (test code=CL) 102.0 mmol/L 98-107 CARBON DIOXIDE (test code=CO2) 27.0 mmol/L 21-32 ANION GAP (test code=GAP) 14.4 10-20 GLUCOSE (test code=GLU) 146 mg/dL 74-106 BLOOD UREA NITROGEN (test code=BUN) 35 mg/dL 7-18 GLOMERULAR FILTRATION RATE (test code=GFR) 5 mL/min >=60 Estimated GFR by using Modified MDRD formula.Chronic kidney disease is defined as either kidney damageor GFR <60 mL/min/1.73 m2 for >3 months. CREATININE (test code=CREAT) 7.70 mg/dL 0.55-1.02 Note change in reference range due to change in reagent. BUN/CREATININE RATIO (test code=BUN/CREA) 4.5 10-20 CALCIUM (test code=CA) 7.9 mg/dL 8.5-10.1 C REACTIVE [id number] 14:30:00* Test Item Value Reference Range Comments C REACTIVE PROTEIN (test code=CRP) 2.04 mg/dL 0-0.3 CBC W/AUTO [id number] 14:24:00* Test Item Value Reference Range Comments WHITE BLOOD CELL (test code=WBC) 7.1 K/mm3 4.5-12.5 RED BLOOD CELL (test code=RBC) 4.79 mill/mm3 3.7-5.2 HEMOGLOBIN (test code=HGB) 13.8 gram/dL 11.5-15.5 HEMATOCRIT (test code=HCT) 46.1 % 36.0-46.0 MEAN CELL VOLUME (test code=MCV) 96.2 fL 80-98 MEAN CELL HGB (test code=MCH) 28.8 picogram 27.0-33.0 MEAN CELL HGB CONCETRATION (test code=MCHC) 29.9 gram/dL 33.0-36.0 RED CELL DISTRIBUTION WIDTH (test code=RDW) 15.0 % 11.6-16.2 RED CELL DISTRIBUTION WIDTH SD (test code=RDW-SD) 53.1 fL 37.0-51.0 PLATELET COUNT (test code=PLT) 147 K/mm3 150-450 MEAN PLATELET VOLUME (test code=MPV) 10.3 fL 6.7-11.0 NEUTROPHIL % (test code=NT%) 73.6 % 39.0-69.0 IMMATURE GRANULOCYTE % (test code=IG%) 0.6 % 0.0-5.0 LYMPHOCYTE % (test code=LY%) 13.7 % 25.0-55.0 MONOCYTE % (test code=MO%) 11.0 % 0.0-10.0 EOSINOPHIL % (test code=EO%) 0.8 % 0.0-5.0 BASOPHIL % (test code=BA%) 0.3 % 0.0-1.0 NUCLEATED RBC % (test code=NRBC%) 0.0 % 0-0 NEUTROPHIL # (test code=NT#) 5.20 K/mm3 1.8-7.7 IMMATURE GRANULOCYTE # (test code=IG#) 0.04 x10 3/uL 0-0.03 LYMPHOCYTE # (test code=LY#) 0.97 K/mm3 1.0-5.0 MONOCYTE # (test code=MO#) 0.78 K/mm3 0-0.8 EOSINOPHIL # (test code=EO#) 0.06 K/mm3 0.0-0.5 BASOPHIL # (test code=BA#) 0.02 K/mm3 0.0-0.2 NUCLEATED RBC # (test code=NRBC#) 0.00 K/mm3 0.0-0.1 MANUAL DIFF REQUIRED (test code=MDIFF) NO, ONLY SCAN NEEDED DIFFERENTIAL [id number] 14:24:00* Test Item Value Reference Range Comments STAIN ACCEPTABILITY (test code=STN ACCEPTABLE) STAIN ACCEPTABLE MORPHOLOGY COMMENT (test code=MOC) NORMAL PLATELET ESTIMATE (test code=PLTEST) ADEQUATE PLATELET MORPHOLOGY (test code=PLTMORPH) NORMAL - XR TIBIA/FIBULA 2 V [id number] 14:12:00 FAX: Shamar Grigsby MD [phone] [place]: St: [facility] FAX: Steve Najera MD [phone] Name: CAMILLE PEREA [facility] : 1940 Age/S: 78/F [address] Unit #: [id number] Loc: [place] [address] Phys: Shamar Grigsby MD Acct: [id number] Dis Date: Status: REG ER PHONE #: [phone] Exam Date: 12/19/2018 1406 FAX #: [phone] Reason: leg pain EXAMS: CPT CODE: [id number] XR TIBIA/FIBULA 2 [place] [address] HISTORY: Pain. COMPARISON: None available. AP and lateral view of the left leg and 3 views of the left knee: No acute fracture or dislocation. Knee joint is preserved with marginal osteophytes. No osteochondral lesions. Articular surfaces are well marginated. No joint fluid. Ankle mortise is preserved. No osteochondr al lesion of the talus. No joint fluid. Vascular calcifications. Planta r calcaneal enthesophyte. IMPRESSION: No acute fracture or dislocation. DJD. 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 CC: Shamar Grigsby MD; Steve Miguel MD Technologist: ZACH SIMON RT(R) Trnscrd Date/Time/By: 12/19/2018 (141) : By: [email or web address] Orig P rint D/T: S: 12/19/2018 (5453) PAGE 1 Signed Report - XR KNEE 3 V [id number] 14:12:00 FAX: Shamar Grigsby MD [phone] [place]: St: [facility] FAX: Steve Najera MD [phone] Name: CAMILLE PEREA [facility] : 1940 Age/S: 78/F [address] Unit #: [id number] Loc: [place] [address] Phys: Shamar Grigsby MD Acct: [id number] Dis Date: Status: REG ER PHONE #: [phone] Exam Date: 12/19/2018 1406 FAX #: [phone] Reason: knee pain EXAMS: CPT CODE: [id number] XR KNEE 3 [place] LT [address] HISTORY: Pain. COMPARISON: None available. AP and lateral view of the left leg and 3 views of the left knee: No acute fracture or dislocation. Knee joint is preserved with marginal osteophytes. No osteochondral lesions. Articular surfaces are well marginated. No joint fluid. Ankle mortise is preserved. No osteochondr al lesion of the talus. No joint fluid. Vascular calcifications. Planta r calcaneal enthesophyte. IMPRESSION: No acute fracture or dislocation. DJD. 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 CC: Shamar Grigsby MD; Steve Miguel MD Technologist: ZACH RODRIGUEZ(R) Trnscrd Date/Time/By: 12/19/2018 (1410) : By: [email or web address] Orig P rint D/T: S: 12/19/2018 (2738) PAGE 1 Signed Report CBC W/AUTO [id number] 14:08:00* Test Item Value Reference Range Comments WHITE BLOOD CELL (test code=WBC) 7.1 K/mm3 4.5-12.5 RED BLOOD CELL (test code=RBC) 4.79 mill/mm3 3.7-5.2 HEMOGLOBIN (test code=HGB) 13.8 gram/dL 11.5-15.5 HEMATOCRIT (test code=HCT) 46.1 % 36.0-46.0 MEAN CELL VOLUME (test code=MCV) 96.2 fL 80-98 MEAN CELL HGB (test code=MCH) 28.8 picogram 27.0-33.0 MEAN CELL HGB CONCETRATION (test code=MCHC) 29.9 gram/dL 33.0-36.0 RED CELL DISTRIBUTION WIDTH (test code=RDW) 15.0 % 11.6-16.2 RED CELL DISTRIBUTION WIDTH SD (test code=RDW-SD) 53.1 fL 37.0-51.0 PLATELET COUNT (test code=PLT) 147 K/mm3 150-450 MEAN PLATELET VOLUME (test code=MPV) 10.3 fL 6.7-11.0 NEUTROPHIL % (test code=NT%) 73.6 % 39.0-69.0 IMMATURE GRANULOCYTE % (test code=IG%) 0.6 % 0.0-5.0 LYMPHOCYTE % (test code=LY%) 13.7 % 25.0-55.0 MONOCYTE % (test code=MO%) 11.0 % 0.0-10.0 EOSINOPHIL % (test code=EO%) 0.8 % 0.0-5.0 BASOPHIL % (test code=BA%) 0.3 % 0.0-1.0 NUCLEATED RBC % (test code=NRBC%) 0.0 % 0-0 NEUTROPHIL # (test code=NT#) 5.20 K/mm3 1.8-7.7 IMMATURE GRANULOCYTE # (test code=IG#) 0.04 x10 3/uL 0-0.03 LYMPHOCYTE # (test code=LY#) 0.97 K/mm3 1.0-5.0 MONOCYTE # (test code=MO#) 0.78 K/mm3 0-0.8 EOSINOPHIL # (test code=EO#) 0.06 K/mm3 0.0-0.5 BASOPHIL # (test code=BA#) 0.02 K/mm3 0.0-0.2 NUCLEATED RBC # (test code=NRBC#) 0.00 K/mm3 0.0-0.1 MANUAL DIFF REQUIRED (test code=MDIFF) NO, ONLY SCAN NEEDED DIFFERENTIAL [id number] 14:08:00* Test Item Value Reference Range Comments STAIN ACCEPTABILITY (test code=STN ACCEPTABLE) CABOT RINGS (test code=CAB) MORPHOLOGY COMMENT (test code=MOC) PLATELET ESTIMATE (test code=PLTEST) PLATELET MORPHOLOGY (test code=PLTMORPH) CBC W/AUTO [id number] 14:08:00* Test Item Value Reference Range Comments WHITE BLOOD CELL (test code=WBC) 7.1 K/mm3 4.5-12.5 RED BLOOD CELL (test code=RBC) 4.79 mill/mm3 3.7-5.2 HEMOGLOBIN (test code=HGB) 13.8 gram/dL 11.5-15.5 HEMATOCRIT (test code=HCT) 46.1 % 36.0-46.0 MEAN CELL VOLUME (test code=MCV) 96.2 fL 80-98 MEAN CELL HGB (test code=MCH) 28.8 picogram 27.0-33.0 MEAN CELL HGB CONCETRATION (test code=MCHC) 29.9 gram/dL 33.0-36.0 RED CELL DISTRIBUTION WIDTH (test code=RDW) 15.0 % 11.6-16.2 RED CELL DISTRIBUTION WIDTH SD (test code=RDW-SD) 53.1 fL 37.0-51.0 PLATELET COUNT (test code=PLT) 147 K/mm3 150-450 MEAN PLATELET VOLUME (test code=MPV) 10.3 fL 6.7-11.0 NEUTROPHIL % (test code=NT%) 73.6 % 39.0-69.0 IMMATURE GRANULOCYTE % (test code=IG%) 0.6 % 0.0-5.0 LYMPHOCYTE % (test code=LY%) 13.7 % 25.0-55.0 MONOCYTE % (test code=MO%) 11.0 % 0.0-10.0 EOSINOPHIL % (test code=EO%) 0.8 % 0.0-5.0 BASOPHIL % (test code=BA%) 0.3 % 0.0-1.0 NUCLEATED RBC % (test code=NRBC%) 0.0 % 0-0 NEUTROPHIL # (test code=NT#) 5.20 K/mm3 1.8-7.7 IMMATURE GRANULOCYTE # (test code=IG#) 0.04 x10 3/uL 0-0.03 LYMPHOCYTE # (test code=LY#) 0.97 K/mm3 1.0-5.0 MONOCYTE # (test code=MO#) 0.78 K/mm3 0-0.8 EOSINOPHIL # (test code=EO#) 0.06 K/mm3 0.0-0.5 BASOPHIL # (test code=BA#) 0.02 K/mm3 0.0-0.2 NUCLEATED RBC # (test code=NRBC#) 0.00 K/mm3 0.0-0.1 MANUAL DIFF REQUIRED (test code=MDIFF) NO, ONLY SCAN NEEDED DIFFERENTIAL [id number] 14:08:00* Test Item Value Reference Range Comments STAIN ACCEPTABILITY (test code=STN ACCEPTABLE) CABOT RINGS (test code=CAB) MORPHOLOGY COMMENT (test code=MOC) PLATELET ESTIMATE (test code=PLTEST) PLATELET MORPHOLOGY (test code=PLTMORPH) CBC W/AUTO [id number] 14:08:00* Test Item Value Reference Range Comments WHITE BLOOD CELL (test code=WBC) 7.1 K/mm3 4.5-12.5 RED BLOOD CELL (test code=RBC) 4.79 mill/mm3 3.7-5.2 HEMOGLOBIN (test code=HGB) 13.8 gram/dL 11.5-15.5 HEMATOCRIT (test code=HCT) 46.1 % 36.0-46.0 MEAN CELL VOLUME (test code=MCV) 96.2 fL 80-98 MEAN CELL HGB (test code=MCH) 28.8 picogram 27.0-33.0 MEAN CELL HGB CONCETRATION (test code=MCHC) 29.9 gram/dL 33.0-36.0 RED CELL DISTRIBUTION WIDTH (test code=RDW) 15.0 % 11.6-16.2 RED CELL DISTRIBUTION WIDTH SD (test code=RDW-SD) 53.1 fL 37.0-51.0 PLATELET COUNT (test code=PLT) 147 K/mm3 150-450 MEAN PLATELET VOLUME (test code=MPV) 10.3 fL 6.7-11.0 NEUTROPHIL % (test code=NT%) 73.6 % 39.0-69.0 IMMATURE GRANULOCYTE % (test code=IG%) 0.6 % 0.0-5.0 LYMPHOCYTE % (test code=LY%) 13.7 % 25.0-55.0 MONOCYTE % (test code=MO%) 11.0 % 0.0-10.0 EOSINOPHIL % (test code=EO%) 0.8 % 0.0-5.0 BASOPHIL % (test code=BA%) 0.3 % 0.0-1.0 NUCLEATED RBC % (test code=NRBC%) 0.0 % 0-0 NEUTROPHIL # (test code=NT#) 5.20 K/mm3 1.8-7.7 IMMATURE GRANULOCYTE # (test code=IG#) 0.04 x10 3/uL 0-0.03 LYMPHOCYTE # (test code=LY#) 0.97 K/mm3 1.0-5.0 MONOCYTE # (test code=MO#) 0.78 K/mm3 0-0.8 EOSINOPHIL # (test code=EO#) 0.06 K/mm3 0.0-0.5 BASOPHIL # (test code=BA#) 0.02 K/mm3 0.0-0.2 NUCLEATED RBC # (test code=NRBC#) 0.00 K/mm3 0.0-0.1 MANUAL DIFF REQUIRED (test code=MDIFF) NO, ONLY SCAN NEEDED DIFFERENTIAL [id number] 14:08:00* Test Item Value Reference Range Comments STAIN ACCEPTABILITY (test code=STN ACCEPTABLE) MORPHOLOGY COMMENT (test code=MOC) PLATELET ESTIMATE (test code=PLTEST) PLATELET MORPHOLOGY (test code=PLTMORPH) CBC W/AUTO [id number] 14:08:00* Test Item Value Reference Range Comments WHITE BLOOD CELL (test code=WBC) 7.1 K/mm3 4.5-12.5 RED BLOOD CELL (test code=RBC) 4.79 mill/mm3 3.7-5.2 HEMOGLOBIN (test code=HGB) 13.8 gram/dL 11.5-15.5 HEMATOCRIT (test code=HCT) 46.1 % 36.0-46.0 MEAN CELL VOLUME (test code=MCV) 96.2 fL 80-98 MEAN CELL HGB (test code=MCH) 28.8 picogram 27.0-33.0 MEAN CELL HGB CONCETRATION (test code=MCHC) 29.9 gram/dL 33.0-36.0 RED CELL DISTRIBUTION WIDTH (test code=RDW) 15.0 % 11.6-16.2 RED CELL DISTRIBUTION WIDTH SD (test code=RDW-SD) 53.1 fL 37.0-51.0 PLATELET COUNT (test code=PLT) 147 K/mm3 150-450 MEAN PLATELET VOLUME (test code=MPV) 10.3 fL 6.7-11.0 NEUTROPHIL % (test code=NT%) 73.6 % 39.0-69.0 IMMATURE GRANULOCYTE % (test code=IG%) 0.6 % 0.0-5.0 LYMPHOCYTE % (test code=LY%) 13.7 % 25.0-55.0 MONOCYTE % (test code=MO%) 11.0 % 0.0-10.0 EOSINOPHIL % (test code=EO%) 0.8 % 0.0-5.0 BASOPHIL % (test code=BA%) 0.3 % 0.0-1.0 NUCLEATED RBC % (test code=NRBC%) 0.0 % 0-0 NEUTROPHIL # (test code=NT#) 5.20 K/mm3 1.8-7.7 IMMATURE GRANULOCYTE # (test code=IG#) 0.04 x10 3/uL 0-0.03 LYMPHOCYTE # (test code=LY#) 0.97 K/mm3 1.0-5.0 MONOCYTE # (test code=MO#) 0.78 K/mm3 0-0.8 EOSINOPHIL # (test code=EO#) 0.06 K/mm3 0.0-0.5 BASOPHIL # (test code=BA#) 0.02 K/mm3 0.0-0.2 NUCLEATED RBC # (test code=NRBC#) 0.00 K/mm3 0.0-0.1 MANUAL DIFF REQUIRED (test code=MDIFF) NO, ONLY SCAN NEEDED DIFFERENTIAL [id number] 14:08:00* Test Item Value Reference Range Comments STAIN ACCEPTABILITY (test code=STN ACCEPTABLE) CABOT RINGS (test code=CAB) MORPHOLOGY COMMENT (test code=MOC) PLATELET ESTIMATE (test code=PLTEST) PLATELET MORPHOLOGY (test code=PLTMORPH) CBC W/AUTO [id number] 14:07:00* Test Item Value Reference Range Comments WHITE BLOOD CELL (test code=WBC) K/mm3 4.5-12.5 RED BLOOD CELL (test code=RBC) mill/mm3 3.7-5.2 HEMOGLOBIN (test code=HGB) 13.8 gram/dL 11.5-15.5 HEMATOCRIT (test code=HCT) % 36.0-46.0 MEAN CELL VOLUME (test code=MCV) fL 80-98 MEAN CELL HGB (test code=MCH) picogram 27.0-33.0 MEAN CELL HGB CONCETRATION (test code=MCHC) gram/dL 33.0-36.0 RED CELL DISTRIBUTION WIDTH (test code=RDW) % 11.6-16.2 RED CELL DISTRIBUTION WIDTH SD (test code=RDW-SD) fL 37.0-51.0 PLATELET COUNT (test code=PLT) K/mm3 150-450 MEAN PLATELET VOLUME (test code=MPV) fL 6.7-11.0 NEUTROPHIL % (test code=NT%) % 39.0-69.0 IMMATURE GRANULOCYTE % (test code=IG%) % 0.0-5.0 LYMPHOCYTE % (test code=LY%) % 25.0-55.0 MONOCYTE % (test code=MO%) % 0.0-10.0 EOSINOPHIL % (test code=EO%) % 0.0-5.0 BASOPHIL % (test code=BA%) % 0.0-1.0 NEUTROPHIL # (test code=NT#) K/mm3 1.8-7.7 LYMPHOCYTE # (test code=LY#) K/mm3 1.0-5.0 MONOCYTE # (test code=MO#) K/mm3 0-0.8 EOSINOPHIL # (test code=EO#) K/mm3 0.0-0.5 BASOPHIL # (test code=BA#) K/mm3 0.0-0.2
--- NOTE | 2019-12-11 17:24 | Consultation ---
DATE OF CONSULTATION: 10/24/2019 This is consultation to Dr. Bunny Hoffman. HISTORY OF PRESENT ILLNESS: Lakesha Tay is an 79-year-old female referred to me for evaluation of neutropenia. No history could be obtained from the patient. The patient had presented with shortness of breath. ALLERGIES: REPORTED NONE. MEDICATIONS: At this time: 1. Albuterol. 2. Cefepime. 3. Zithromax. 4. Androsterone. 5. Methylprednisolone. 6. Pepcid. 7. Benzonatate. REVIEW OF SYSTEMS: HEENT: Normal. CARDIAC: Essentially normal. RESPIRATORY: Complaints of shortness of breath. GASTROINTESTINAL: Normal. GENITOURINARY: Normal. MUSCULOSKELETAL: Normal. SKIN: Normal. BREAST: Normal. NEUROENDOCRINE: Essentially normal. PHYSICAL EXAMINATION: GENERAL: A moderately built female, no adenopathy. HEART: Within normal limits. LUNGS: Showing coarse crepitations. ABDOMEN: Soft. RECTAL AND VAGINAL: Exam is deferred. CENTRAL NERVOUS SYSTEM: Could not be examined. LABORATORY DATA: Lab shows sodium of 138, potassium 4.8, chloride 96, CO2 of 26, BUN 36, and creatinine 5.6. WBC of 0.89. Hemoglobin of 10.9 and hematocrit of 34.3. Platelets 102,000. INR 0.93. Bilirubin 0.4. SGOT 10. SGPT 9. Alkaline phosphatase 73. IMPRESSION: 1. Neutropenia. 2. Anemia. 3. Thrombocytopenia. 4. Hyperkalemia 5.5. 5. Renal failure with BUN of 75 and creatinine of 11.43. 6. Hypoalbuminemia of 3.2. 7. 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 8. Drug-induced versus viral-induced neutropenia. PLAN, COMMENTS, AND SUGGESTIONS: Suggest Neupogen. Suggest strict hand washing. Suggest appropriate cultures and antibiotics. Possibility of MDS was also raised with Neupogen one dose the white count went up to 27,500 on 10/25/2019. The patient still remained leukemoid with 29.2 on 10/26/2019, again 29.2 on 10/27/2019. The patient still had leukemoid reaction with 90% neutrophils. The patient's leukemoid reaction still persisted with 20.9. All cultures were reported negative. The patient's white count dropped down to 11,000 on 10/30/2019. The patient has been discharged. I will be more than happy to follow the patient with the attending would call and make an appointment with me as an outpatient. During the hospitalization, the neutropenia was addressed. Anemia was also addressed. Thrombocytopenia was addressed. Hyperkalemia was addressed by Nephrology. Renal failure was addressed by Nephrology. Hypoalbuminemia should be addressed with proper diet. Hyperglobulinemia at this age would be of academic interest. It is very possible she might have multiple myeloma, but however, would be of academic interest. Thank you very much for allowing me to participate in management of this patient during this hospitalization. MD CONSTANTINE Tucker/ANGELES /[id number]
== END 2019-10-30 18:11 | DRG 193 ==
LOC: ER 10:19 → ERHOLD 12:15 → MED/SURG2 15:01 → OBSVTOIN 10-24 07:44
PROVIDERS: ADMIT Internal Medicine; ATTEND Internal Medicine
PROC: 02HV33Z Insertion of Infusion Device into Superior Vena Cava, Percutaneous Approach (ICD-10-PCS; principal; 2019-10-24)
PROC: 5A1D70Z Performance of Urinary Filtration, Intermittent, Less than 6 Hours Per Day (ICD-10-PCS; 2019-10-24)
DX: J09.X2 Influenza due to identified novel influenza A virus with other respiratory manifestations (principal); N18.6 End stage renal disease; D61.818 Other pancytopenia; I12.0 Hypertensive chronic kidney disease with stage 5 chronic kidney disease or end stage renal disease; E87.5 Hyperkalemia; Z68.31 Body mass index [BMI] 31.0-31.9, adult; I10 Essential (primary) hypertension; E87.70 Fluid overload, unspecified; E66.01 Morbid (severe) obesity due to excess calories; D72.823 Leukemoid reaction; R00.1 Bradycardia, unspecified
CPT/HCPCS: 36415; 71045; 80048; 80053; 80061; 82550; 82553; 83518; 83880; 84484; 85025; 85610; 85730; 87040; 87070; 87400; 90732; 90962; 93005; 94640; 96367; 96376; 97139; 99284; G0378; J0456; J0692; J0696; J1442; J2920; J2930; J7030; J7050; Q0162

== ENCOUNTER 2020-01-06 15:20 | Emergency (ER) | payer MEDICARE ==
[~2020-01-06] VITALS: Ht 157.5 cm; Wt 78.5 kg
[~2020-01-06 15:20] MED LIST: AMLODIPINE BESYL5 MG PO; CYMBALTA30 MG PO; IRBESARTAN150 MG PO
[2020-01-06 16:26] LABS: BASOPHILS % 0.7 % (0.0-1.0); EOSINOPHILS % 0.7 % (0.0-6.0); HEMATOCRIT 37.6 % (34.2-44.1); HEMOGLOBIN 11.9 g/dL (12.0-16.0); LYMPHOCYTES % 17.1 % (18.0-39.1); MEAN CORPUSCULAR HGB CONC 31.6 g/dL (31-35); MEAN CORPUSCULAR VOLUME 91.5 fL (81-99); MONOCYTES # (AUTO) 0.8 (0.2-0.8); MONOCYTES % 12.3 % (4.4-11.3); NEUTROPHILS # (AUTO) 4.2 (2.1-6.9); NEUTROPHILS % 68.9 % (38.7-80.0); PLATELET COUNT 153 x10e3/uL (140-360); RED BLOOD COUNT 4.11 x10e6/uL (3.6-5.1); RED CELL DISTRIBUTION WIDTH 15.6 % (11.7-14.4)
[2020-01-06 16:34] LABS: INR 0.98; PROTHROMBIN TIME 13.6 seconds (11.9-14.5)
[2020-01-06 16:35] LABS: PARTIAL THROMBOPLASTIN TIME 32.9 seconds (23.8-35.5)
[2020-01-06 16:45] LABS: ALBUMIN 3.4 g/dL (3.5-5.0); ANION GAP 14.5 mmol/L (8-16); CALCIUM 9.3 mg/dL (8.4-10.2); CREATININE, SERUM 3.01 mg/dL (0.57-1.11); POTASSIUM 3.5 mmol/L (3.5-5.1)
[2020-01-06 16:58] LABS: CREATINE KINASE MB 0.8 ng/mL (0-5.0)
--- NOTE | 2020-01-06 17:21 | Diagnostic Imaging Report ---
EXAMINATION: CHEST SINGLE (PORTABLE) INDICATION: Tachycardia COMPARISON: Chest radiograph 10/23/2019 FINDINGS: LINES/TUBES:None LUNGS:The lungs are moderately inflated. No focal consolidation or pulmonary edema. PLEURA:No pleural effusion or pneumothorax. MEDIASTINUM:Cardiomediastinal silhouette is stably enlarged. Atherosclerotic calcifications of the thoracic aorta. BONES/SOFT TISSUES:No acute osseous injury.. Unchanged left subclavian stent. ABDOMEN:No free air under the diaphragm. IMPRESSION: No focal pneumonia or pulmonary edema. Unchanged cardiomegaly. Signed by: Humera Barkley MD on 01/06/2020 5:18 PM
== END 2020-01-06 18:15 | disposition home or self-care (01) ==
LOC: ER 15:20
DX: R00.2 Palpitations (principal); I10 Essential (primary) hypertension; N28.9 Disorder of kidney and ureter, unspecified; M54.9 Dorsalgia, unspecified; G89.29 Other chronic pain
CPT/HCPCS: 36415; 71045; 80053; 82550; 82553; 83735; 84443; 84484; 85025; 85610; 85730; 93005; 99284

== ENCOUNTER 2020-02-18 08:55 | Emergency (ER) | payer MEDICARE, OTHER ==
[~2020-02-18] VITALS: Ht 157.5 cm; Wt 78.5 kg
--- OUTSIDE RECORDS SUMMARY | 2020-02-18 08:58 | XMS REPORT ---
Author Author Admin, [place] Organization Unknown Address Unknown Phone Unavailable Problems No Known Problems ENCOUNTERS Date Type Provider Location Encounter Diagnosis - Ambulatory Encounter COVID-19 Desktop [facility] Contact [facility] UNK VITAL SIGNS No Information Available Allergies No Known Allergy Information REASON FOR REFERRAL No Information Available RESULTS No Information Available HISTORY OF IMMUNIZATIONS No Information Available Medications No Known Medication Information SOCIAL HISTORY No Information Available FUNCTIONAL STATUS No Information Available MENTAL STATUS No Information Available MEDICAL EQUIPMENT No Information Available FAMILY HISTORY No Information Available INSURANCE PROVIDERS No Information Available ADVANCE DIRECTIVES No Information Available TREATMENT PLAN No Information Available HISTORY OF PROCEDURES No Information Available GOALS No Information Available HEALTH CONCERNS No Information Available
[2020-02-18 09:26] LABS: BASOPHILS % 0.5 % (0.0-1.0); EOSINOPHILS % 0.7 % (0.0-6.0); HEMATOCRIT 36.2 % (34.2-44.1); HEMOGLOBIN 11.7 g/dL (12.0-16.0); LYMPHOCYTES # (AUTO) 1.3 (1.0-3.2); LYMPHOCYTES % 22.6 % (18.0-39.1); MEAN CORPUSCULAR HEMOGLOBIN 30.2 pg (28-32); MEAN CORPUSCULAR HGB CONC 32.3 g/dL (31-35); MEAN CORPUSCULAR VOLUME 93.3 fL (81-99); MONOCYTES # (AUTO) 0.5 (0.2-0.8); MONOCYTES % 9.6 % (4.4-11.3); NEUTROPHILS # (AUTO) 3.7 (2.1-6.9); NEUTROPHILS % 66.4 % (38.7-80.0); PLATELET COUNT 130 x10e3/uL (140-360); RED BLOOD COUNT 3.88 x10e6/uL (3.6-5.1); RED CELL DISTRIBUTION WIDTH 14.9 % (11.7-14.4)
[2020-02-18 09:38] LABS: INR 0.94; PROTHROMBIN TIME 13.1 seconds (11.9-14.5)
[2020-02-18 09:39] LABS: PARTIAL THROMBOPLASTIN TIME 33.6 seconds (23.8-35.5)
[2020-02-18 09:48] LABS: ALBUMIN 3.7 g/dL (3.5-5.0); ALBUMIN/GLOBULIN RATIO 1.1 (0.8-2.0); ANION GAP 16.7 mmol/L (8-16); CALCIUM 7.9 mg/dL (8.4-10.2); POTASSIUM 3.7 mmol/L (3.5-5.1)
[2020-02-18 09:57] LABS: B-TYPE NATRIURETIC PEPTIDE2 3684.8 pg/mL (0-100)
[2020-02-18 10:04] LABS: CREATININE, SERUM 5.62 mg/dL (0.57-1.11)
[2020-02-18 10:12] LABS: CREATINE KINASE MB 1.1 ng/mL (0-5.0)
--- NOTE | 2020-02-18 10:27 | Diagnostic Imaging Report ---
EXAMINATION: CHEST SINGLE (PORTABLE) INDICATION: Shortness of breath COMPARISON: Chest radiograph 01/06/2020 FINDINGS: LINES/TUBES:EKG leads overlie the chest. LUNGS:The lungs are moderately inflated. There is perihilar fullness and indistinctness of the pulmonary vasculature. Mildly increased perihilar interstitial opacities. PLEURA:No pleural effusion or pneumothorax. MEDIASTINUM:The heart is mildly enlarged. Atherosclerotic calcifications of the thoracic aorta. BONES/SOFT TISSUES:No acute osseous injury. Left subclavian stent. ABDOMEN:No free air under the diaphragm. IMPRESSION: Mildly increased perihilar interstitial opacities, more likely interstitial edema than infection. Unchanged mild cardiomegaly. Signed by: Humera Barkley MD on 02/18/2020 10:24 AM
--- NOTE | 2020-02-18 11:03 | NUR ---
per dr liu contact [facility] for dialysis for pt stat
--- NOTE | 2020-02-18 11:09 | NUR ---
spoke with jossue at [facility] to set up stat hemodialysis for pt per dr liu; jossue states she will get someone out
--- NOTE | 2020-02-18 12:18 | NUR ---
culturalink used to explain consent for dialysis and refusal of blood; pt states she understands and signs consent and refusal of blood; pt a&o x 3
[2020-02-18] MEDS ORDERED: HYDRALAZINE HCL 20 MG/ML VIAL IV PRN (14:00)
[2020-02-18] MEDS ORDERED: CEFTRIAXONE SOD 1 GM VIAL IV SCH (14:00)
[2020-02-18] MEDS ORDERED: ACETAMINOPHEN 325 MG TAB PO PRN (14:00)
[2020-02-18] MEDS ORDERED: ONDANSETRON HCL INJ 2MG/ML 2ML 2 MG/ML VIAL IV PRN (14:00)
[2020-02-18] MEDS ORDERED: MORPHINE SULFATE 2 MG/ML SYR 1ML IV PRN (14:00)
[2020-02-18] MEDS ORDERED: HYDROCODONE/APAP 5MG-325MG TAB PO PRN (14:00)
[2020-02-18] MEDS ORDERED: CEFTRIAXONE SOD 1 GM/NS 50 ML 50 ML IV SCH (14:15)
[2020-02-18] MEDS ORDERED: SODIUM CHLORIDE 0.9% 1000ML 1,000 ML ONE (14:59)
[2020-02-18] MEDS ORDERED: SODIUM CHLORIDE 0.9% 1000ML 1,000 ML IV SCH (15:00)
--- NOTE | 2020-02-18 18:41 | NUR ---
JATIN (DAUGHTER), PLEASE CALL WHEN PATIENT IS DISCHARGED SO SHE CAN PICK PATIENT UP .
--- NOTE | 2020-02-18 19:06 | NUR ---
Spoke to Dr. Benton and was told patient to discharge home post dialysis. Patient finished dialysis and states she is feeling well. Family called to parts picker patient.
[2020-02-18 19:08] VITALS: BP 117/55
--- NOTE | 2020-02-18 19:27 | Consultation ---
DATE OF CONSULTATION: 02/18/2020 HISTORY OF PRESENT ILLNESS: Ms. Tay is known to our Nephrology Service. She is a pleasant 79-year-old female, who apparently missed her dialysis, came in very short of breath. She denies any cough, fever. She was recently seen as of Monday, had a COVID-19 test done, which was negative apparently. She denies any fever, chills, or diarrhea. She has been seen by ID. Chest x-ray shows cardiomegaly with evidence of mild increased vascular markings. No clear-cut infiltrate. Please see official report. She is currently awake, alert, though dyspneic. She has [id number] respiratory distress. LABORATORY DATA: Show sodium 142, potassium 3.7, bicarbonate 29, and creatinine 5.6. BNP level is 3684. Magnesium is 2.1. Hematology showed white count 5.5 and hemoglobin 11.7. ALLERGIES: NO APPARENT DRUG ALLERGIES. The patient currently on oxygen. CURRENT MEDICATIONS: Please see MAR. PAST MEDICAL HISTORY: History of end-stage renal disease, hypertension, history of neutropenia, anemia, hypertension, and end-stage renal disease. SOCIAL HISTORY: Does not smoke or drink. FAMILY HISTORY: Significant for hypertension. PHYSICAL EXAMINATION: GENERAL: Awake, alert, and oriented x3. The patient appears to be in [id number] respiratory distress. VITAL SIGNS: Blood pressure 130/56, pulse rate 90, afebrile, and respiratory rate 26. HEAD AND NECK: Cornea clear. Mucosa moist. LUNGS: Bibasilar rales. HEART: S1 and S2 audible, 2 to 3/6 ejection systolic murmur heard over left sternal border. ABDOMEN: Otherwise soft and nontender. No apparent visceromegaly. EXTREMITIES: Lower extremity, no edema. IMPRESSION AND PLAN: Pulmonary edema, fluid overload, congestive heart failure, underlying end-stage renal disease, and hypertension. Plan on urgent hemodialysis, ultrafiltration hemodialysis, fluid restriction, renal diet. Further recommendations to follow. MD IRIS Stern/ANGELES /[id number]
--- NOTE | 2020-02-22 05:56 | Consultation ---
DATE OF CONSULTATION: 02/18/2020 REASON FOR CONSULTATION: The patient is shortness of breath, cough, concern pneumonia versus congestive heart failure. HISTORY OF PRESENT ILLNESS: This patient is a very pleasant 79-year-old female, who has history of end-stage renal disease, on hemodialysis. She has been having some shortness of breath on and off. Occasionally dry cough. At the dialysis unit, she was checked there for COVID-19 since we are in the mid of outbreak and that was negative 4 days ago. The patient apparently missed her dialysis. She comes here with shortness of breath. The patient is telling me there was no fever, no cough, no sore throat. No nausea, no vomiting, no diarrhea, but she is short of breath. The patient was seen in the emergency room. Discussed with the ER physician. Discussed with Dr. Collins, her grizzlyman. PAST MEDICAL HISTORY: Significant for end-stage renal disease. PAST SURGICAL HISTORY: IV access for dialysis. ALLERGIES: NKA. SOCIAL HISTORY: She denies smoking, drug abuse, or alcohol abuse. FAMILY HISTORY: Otherwise hypertension and diabetes. REVIEW OF SYSTEMS: At present time, HEENT: Negative. PULMONARY: Shortness of breath. CARDIAC: Shortness of breath. : Negative. GI: Negative. SKIN: There is no rash. Otherwise all negative. LABORATORY DATA: Reviewed. X-ray also reviewed. My impression x-ray is showing central congestion. Her laboratory data white count 5.52, hemoglobin 11. Her sodium 142, potassium 3.7 with a creatinine 5.62. Her lactic acid was 1.1. PHYSICAL EXAMINATION: GENERAL: She is currently alert, oriented, does not seem to be in acute distress. VITAL SIGNS: Stable, afebrile. HEENT: She is not icteric. NECK: Supple. CHEST: Few crackles bilateral. COR: S1, S2, no murmur. ABDOMEN: Soft. Bowel sounds present. No tenderness. EXTREMITIES: No edema. SKIN: No rash. IMPRESSION: I think the patient is fluid overload, pulmonary edema. I do not think the patient have strong evidence for COVID-19 showed negative. No fever, no cough. I think the best ideally if we can dialyze the patient and adjust fluid overload, discharge the patient after that. If she is clinically stable, follow up as outpatient with me in 2 weeks. Discussed with the patient, answered all her questions. Discussed with the medical team, answered all their questions. MD EMANUEL Tapia/ANGELES /[id number]
== END 2020-02-18 19:30 | disposition home or self-care (01) ==
LOC: ER 08:55 → UNDOADMIN 11:00 → ERHOLD 11:00 → ER 19:30
DX: R50.9 Fever, unspecified (principal); R05 Cough; R06.09 Other forms of dyspnea; I27.9 Pulmonary heart disease, unspecified
CPT/HCPCS: 36415; 71045; 80053; 82550; 82553; 83605; 83735; 83880; 84484; 85025; 85610; 85730; 87040; 87635; 99284; J7030

== ENCOUNTER 2020-05-18 11:12 | Emergency (ER) | payer MEDICARE, OTHER ==
[~2020-05-18] VITALS: Ht 157.5 cm; Wt 78.5 kg
[2020-05-18] MEDS ORDERED: ACETAMINOPHEN 325 MG TAB PO ONE (11:45)
--- NOTE | 2020-05-18 12:14 | Diagnostic Imaging Report ---
EXAMINATION: CHEST SINGLE (PORTABLE) INDICATION: Pneumonia, fever COMPARISON: Chest radiograph of 02/18/2020 FINDINGS: LINES/TUBES:None LUNGS:The lungs are moderately inflated. Bibasilar opacities left greater than right. PLEURA:No pleural effusion or pneumothorax. MEDIASTINUM:The cardiomediastinal silhouette appears normal in size and shape. Unchanged left subclavian stent. BONES/SOFT TISSUES:No acute osseous injury. ABDOMEN:No free air under the diaphragm. IMPRESSION: Left greater than right bibasilar patchy opacities may represent subsegmental atelectasis however superimposed pneumonia could have a similar appearance in the proper clinical setting. Signed by: Humera Barkley MD on 05/18/2020 12:10 PM
[2020-05-18 12:15] LABS: ANION GAP 22.5 mmol/L (8-16); CALCIUM 7.3 mg/dL (8.4-10.2); CREATININE, SERUM 10.03 mg/dL (0.57-1.11); POTASSIUM 4.5 mmol/L (3.5-5.1)
[2020-05-18] MEDS ORDERED: DECADRON6 MG PO (12:18)
[2020-05-18] MEDS ORDERED: AZITHROMYCIN250 MG PO (12:19)
--- NOTE | 2020-05-18 12:29 | Emergency Department Note ---
History of Present Illnes History of Present Illness Chief Complaint: COVID PUI History of Present Illness This is a 79 year old female arrived to the ED with complaints of fever cough and fatigue for several days. Chief Complaint Comment Pt arrived to the ER with c/o fever and fatigue x3. Pt states she went to have her dialysis this am and was told she couldn't have it due to fever, sent to the ER to make sure she did not have COVID. Pt reports slight cough, denies any SOB. Historian: Patient Arrival Mode: Car Onset (how long ago): day(s) Duration (how long): day(s) Timing of current episode: intermittent Progression: waxing and waning Chronicity: new Exacerbating factors: none Associated symptoms: Reports cough, Reports fever/chills Treatments prior to arrival: none Past Medical/Family History Physician Review I have reviewed the patient's past medical and family history. Any updates have been documented here. Past Medical History Recent Fever: Yes Clinical Suspicion of Infectio: Yes New/Unexplained Change in Ment: No Past Medical History: Hypertension, ESRD, Hemodyalisis, Chronic Back Pain, Osteoarthritis Other Medical History: dialysis Past Surgical History: Other Surgery: one ovary removal Left arm fistula Social History Physically hurt or threatened: No Other Last Tetanus: ood Review of Systems Review of Systems Constitutional: Reports as per HPI, Reports chills, Reports fever EENTM: Reports no symptoms Cardiovascular: Reports no symptoms Respiratory: Reports as per HPI, Reports cough Gastrointestinal: Reports no symptoms Genitourinary: Reports no symptoms Musculoskeletal: Reports no symptoms Integumentary: Reports no symptoms Neurological: Reports no symptoms Psychological: Reports no symptoms Endocrine: Reports no symptoms Hematological/Lymphatic: Reports no symptoms Physical Exam Related Data Allergies: Coded Allergies: No Known Allergies (Unverified , 10/23/19) Triage Vital Signs Vital Signs Date Time Temp Pulse Resp B/P (MAP) Pulse Ox O2 Delivery O2 Flow Rate FiO2 05/18/20 11:16 101.1 88 20 117/76 98 Room Air Vital signs reviewed: Yes Physical Exam CONSTITUTIONAL Constitutional: Present well-developed, Present well-nourished HENT HENT: Present normocephalic, Present atraumatic, Present oropharynx clear/moist, Present nose normal HENT L/R: Present left ext ear normal, Present right ext ear normal EYES Eyes: Reports PERRL, Reports conjunctivae normal NECK Neck: Present ROM normal PULMONARY Pulmonary: Present effort normal, Present breath sounds normal CARDIOVASCULAR Cardiovascular: Present regular rhythm, Present heart sounds normal, Present capillary refill normal, Present normal rate GASTROINTESTINAL Abdominal: Present soft, Present nontender, Present bowel sounds normal GENITOURINARY Genitourinary: Present exam deferred SKIN Skin: Present warm, Present dry MUSCULOSKELETAL Musculoskeletal: Present ROM normal NEUROLOGICAL Neurological: Present alert, Present oriented x 3, Present no gross motor or sensory deficits PSYCHOLOGICAL Psychological: Present mood/affect normal, Present judgement normal Results Laboratory Result Diagram: 05/18/20 1130 Laboratory Laboratory Tests Test 05/18/20 11:30 Sodium Level 140 mmol/L (136-145) Potassium Level 4.5 mmol/L (3.5-5.1) Chloride Level 97 mmol/L (98-107) Carbon Dioxide Level 25 mmol/L (22-29) Anion Gap 22.5 mmol/L (8-16) Blood Urea Nitrogen 52 mg/dL (7-26) Creatinine 10.03 mg/dL (0.57-1.11) Estimat Glomerular Filtration Rate 4 ML/MIN (60-) BUN/Creatinine Ratio 5 (6-25) Glucose Level 91 mg/dL (74-118) Calcium Level 7.3 mg/dL (8.4-10.2) Lab results reviewed: Yes Imaging Imaging results reviewed: Yes Impressions IMPRESSION: Left greater than right bibasilar patchy opacities may represent subsegmental atelectasis however superimposed pneumonia could have a similar appearance in the proper clinical setting. Signed by: Humera Barkley MD on 05/18/2020 12:10 PM Assessment & Plan Medical Decision Making MDM 79-year-old well-appearing female arrives to the ED with complaints of cough fever loss of taste and smell. Patient is clinically presenting with signs and symptoms consistent with Covid 19. Patient informed she is positive until proven otherwise. Patient's oxygen saturation remained 99% even on exertion, no evidence of tachypnea or dyspnea noted in the ED. Spoke present length about the importance of sleeping on her stomach and rotating from side to side. Z-Windy given, signs and symptoms for return discussed. Patient is a dialysis patient, BMP done in the emergency department is unremarkable for any loculated abnormalities. Patient has renal disease hence the dialysis. Patient discharged home with normal vital signs. In the light of the Covid pandemic, disaster medicine care was given- Patient's imaging reviewed,- chest x-ray shows questionable patchy airspace opacities . Patient clinically appears well, outpatient pulmonary follow-up given. The red flags for return to emergency department given. Patient understands the emergency department is open at all times to serve his needs as well as the needs of the community and given that he requires no supplemental oxygen and is speaking in full sentences with no distress he is stable to go home and quarantine. Assessment & Plan Final Impression: (1) COVID-19 (2) Pneumonia Depart Disposition: HOME, SELF-CARE Last Vital Signs Date Time Temp Pulse Resp B/P (MAP) Pulse Ox O2 Delivery O2 Flow Rate FiO2 05/18/20 11:16 101.1 88 20 117/76 98 Room Air Home Meds Active Scripts Azithromycin (Z-WINDY) 250 Mg Tablet, 1 PKG PO DIRECTED, #1 PKG 0 Refills Prov:JUAN FRANCISCO MARC DO 05/18/20 Dexamethasone (Decadron) 6 Mg Tablet, 6 MG PO DAILY, #5 Prov:JUAN FRANCISCO MARC DO 05/18/20 Reported Medications Amlodipine Besylate (AMLODIPINE BESYLATE) 5 Mg Tablet, 5 MG PO qdaily in evening, #30 TAB 10/23/19 Duloxetine Hcl (CYMBALTA) 30 Mg Capsule.dr, 30 MG PO BID, #30 CAP 10/23/19 Medications in the ED Acetaminophen 650 mg ONCE ONCE PO ; Start 05/18/20 at 11:45; Stop 05/18/20 at 11:46; Status DC JUAN FRANCISCO MARC DO May 18, 2020 12:29
--- NOTE | 2020-05-18 13:52 | NUR ---
SPOKE TO [facility] AT [phone]. THEY ARE AWARE OF YOUR COVID STATUS AND ARE RESCHEDULING YOU AT THE COVID CLINIC. CALL THEM TODAY
== END 2020-05-18 16:19 | disposition home or self-care (01) ==
LOC: ER 11:50
DX: U07.1 COVID-19 (principal); J18.9 Pneumonia, unspecified organism; R05 Cough; I12.0 Hypertensive chronic kidney disease with stage 5 chronic kidney disease or end stage renal disease; N18.6 End stage renal disease; Z99.2 Dependence on renal dialysis
CPT/HCPCS: 36415; 71045; 80048; 87635; 99283

== ENCOUNTER 2020-08-25 09:57 | Observation (INO) | payer MEDICARE, OTHER ==
[~2020-08-25] VITALS: Ht 157.5 cm; Wt 73.5 kg
[~2020-08-25 09:57] MED LIST changes: +AZITHROMYCIN250 MG PO; +DECADRON6 MG PO
[2020-08-25] MEDS ORDERED: PANTOPRAZOLE 40 MG 10ML VIAL IV STA (10:35)
[2020-08-25] MEDS ORDERED: SODIUM CHLORIDE 0.9% 250ML 250 ML IV ONE (10:45)
[2020-08-25 10:57] LABS: BASOPHILS % 0.5 % (0.0-1.0); EOSINOPHILS # (AUTO) 0.2 (0.0-0.4); EOSINOPHILS % 2.2 % (0.0-6.0); HEMATOCRIT 41.7 % (34.2-44.1); HEMOGLOBIN 13.5 g/dL (12.0-16.0); LYMPHOCYTES # (AUTO) 1.2 (1.0-3.2); LYMPHOCYTES % 16.3 % (18.0-39.1); MEAN CORPUSCULAR HEMOGLOBIN 31.6 pg (28-32); MEAN CORPUSCULAR HGB CONC 32.4 g/dL (31-35); MEAN CORPUSCULAR VOLUME 97.7 fL (81-99); MONOCYTES # (AUTO) 1.1 (0.2-0.8); MONOCYTES % 14.9 % (4.4-11.3); NEUTROPHILS # (AUTO) 4.8 (2.1-6.9); NEUTROPHILS % 65.7 % (38.7-80.0); PLATELET COUNT 160 x10e3/uL (140-360); RED BLOOD COUNT 4.27 x10e6/uL (3.6-5.1); RED CELL DISTRIBUTION WIDTH 14.2 % (11.7-14.4)
[2020-08-25 11:11] LABS: INR 1.06; PROTHROMBIN TIME 14.3 seconds (11.9-14.5)
[2020-08-25 11:25] LABS: ALBUMIN 3.3 g/dL (3.5-5.0); ALBUMIN/GLOBULIN RATIO 0.8 (0.8-2.0); ANION GAP 19.3 mmol/L (8-16); CALCIUM 7.6 mg/dL (8.4-10.2); CREATININE, SERUM 5.94 mg/dL (0.57-1.11); POTASSIUM 4.3 mmol/L (3.5-5.1)
[2020-08-25 11:48] LABS: CREATINE KINASE MB 0.5 ng/mL (0-5.0)
[2020-08-25] MEDS ORDERED: SODIUM CHLORIDE 0.9% 100 ML ONE (12:39)
[2020-08-25] MEDS ORDERED: IOPAMIDOL 370 MG/ML 200 ML INFUS..BTL INJ ONE (12:39)
[2020-08-25] MEDS ORDERED: D-3 (12:44)
[2020-08-25] MEDS ORDERED: TEMAZEPAM15 MG (12:44)
[2020-08-25] MEDS ORDERED: IRBESARTAN150 MG (12:44)
[2020-08-25 14:15] VITALS: BP 114/52
[2020-08-25 14:25] VITALS: BP 114/52
[2020-08-25 17:00] LABS: BASOPHILS % 0.5 % (0.0-1.0); EOSINOPHILS # (AUTO) 0.1 (0.0-0.4); HEMATOCRIT 37.8 % (34.2-44.1); HEMOGLOBIN 12.1 g/dL (12.0-16.0); LYMPHOCYTES % 17.1 % (18.0-39.1); MEAN CORPUSCULAR HEMOGLOBIN 31.5 pg (28-32); MEAN CORPUSCULAR VOLUME 98.4 fL (81-99); MONOCYTES # (AUTO) 1.1 (0.2-0.8); MONOCYTES % 17.5 % (4.4-11.3); NEUTROPHILS # (AUTO) 3.8 (2.1-6.9); NEUTROPHILS % 62.6 % (38.7-80.0); PLATELET COUNT 134 x10e3/uL (140-360); RED BLOOD COUNT 3.84 x10e6/uL (3.6-5.1); RED CELL DISTRIBUTION WIDTH 14.2 % (11.7-14.4)
[2020-08-25] MEDS ORDERED: DOCUSATE SODIUM 100 MG CAP PO PRN (18:00)
[2020-08-25] MEDS ORDERED: ACETAMINOPHEN 325 MG TAB PO PRN (18:00)
[2020-08-25] MEDS ORDERED: ONDANSETRON HCL INJ 2MG/ML 2ML 2 MG/ML VIAL IV PRN (18:00)
[2020-08-25 19:10] VITALS: BP 129/60
[2020-08-25 20:38] VITALS: BP 129/60
[2020-08-25] MEDS: TEMAZEPAM 15 MG CAP PO SCH (20:57)
[2020-08-25] MEDS: PANTOPRAZOLE 40 MG 10ML VIAL IV SCH (20:57)
[2020-08-26] VITALS (8 sets, daily range): BP systolic 97–123; BP diastolic 42–57
[2020-08-26 05:37] LABS: BASOPHILS % 0.5 % (0.0-1.0); EOSINOPHILS # (AUTO) 0.2 (0.0-0.4); EOSINOPHILS % 2.9 % (0.0-6.0); HEMATOCRIT 35.7 % (34.2-44.1); HEMOGLOBIN 11.5 g/dL (12.0-16.0); MEAN CORPUSCULAR HEMOGLOBIN 30.7 pg (28-32); MEAN CORPUSCULAR HGB CONC 32.2 g/dL (31-35); MEAN CORPUSCULAR VOLUME 95.2 fL (81-99); MONOCYTES # (AUTO) 0.9 (0.2-0.8); MONOCYTES % 15.1 % (4.4-11.3); NEUTROPHILS # (AUTO) 3.9 (2.1-6.9); PLATELET COUNT 148 x10e3/uL (140-360); RED BLOOD COUNT 3.75 x10e6/uL (3.6-5.1); RED CELL DISTRIBUTION WIDTH 14.1 % (11.7-14.4)
[2020-08-26 05:59] LABS: ALBUMIN 2.8 g/dL (3.5-5.0); ALBUMIN/GLOBULIN RATIO 0.8 (0.8-2.0); ANION GAP 18.6 mmol/L (8-16); CALCIUM 7.4 mg/dL (8.4-10.2); CREATININE, SERUM 6.77 mg/dL (0.57-1.11); POTASSIUM 4.6 mmol/L (3.5-5.1)
[2020-08-26 06:29] LABS: CREATINE KINASE MB 0.7 ng/mL (0-5.0)
[2020-08-26 06:44] LABS: % IRON SATURATION 16 % (15-50); IRON 33 ug/dL (50-170); TOTAL IRON BINDING CAPACITY 204 ug/dL (261-478); TRANSFERRIN 146 mg/dL (180-382)
[2020-08-26] MEDS ORDERED: SODIUM CHLORIDE 0.9% 1000ML 2,000 ML ONE (07:29)
[2020-08-26] MEDS: AMLODIPINE BESYLATE 5 MG TAB PO SCH (09:00)
[2020-08-26] MEDS: IRBESARTAN 150 MG TAB PO SCH (09:00)
[2020-08-26] MEDS: PANTOPRAZOLE 40 MG 10ML VIAL IV SCH ×2 (13:00→21:31)
[2020-08-26] MEDS: POLYETHYLENE GLYCOL 3350 17 GM PACK PO SCH (13:00)
[2020-08-26] MEDS: DULOXETINE HCL 30 MG DELAYED RELEASE PO SCH ×2 (13:00→16:40)
[2020-08-26] MEDS: SENNOSIDES 8.6 MG TAB PO SCH ×2 (13:00→21:31)
[2020-08-26 16:31] LABS: BASOPHILS % 0.5 % (0.0-1.0); EOSINOPHILS # (AUTO) 0.1 (0.0-0.4); HEMATOCRIT 36.5 % (34.2-44.1); HEMOGLOBIN 13.6 g/dL (12.0-16.0); LYMPHOCYTES # (AUTO) 1.1 (1.0-3.2); LYMPHOCYTES % 14.1 % (18.0-39.1); MEAN CORPUSCULAR HEMOGLOBIN 36.9 pg (28-32); MEAN CORPUSCULAR HGB CONC 37.3 g/dL (31-35); MEAN CORPUSCULAR VOLUME 98.9 fL (81-99); MONOCYTES # (AUTO) 1.2 (0.2-0.8); MONOCYTES % 14.2 % (4.4-11.3); NEUTROPHILS # (AUTO) 5.6 (2.1-6.9); NEUTROPHILS % 69.8 % (38.7-80.0); PLATELET COUNT 122 x10e3/uL (140-360); RED BLOOD COUNT 3.69 x10e6/uL (3.6-5.1)
[2020-08-26 16:59] LABS: CREATINE KINASE MB 0.7 ng/mL (0-5.0)
[2020-08-26 18:12] LABS: BASOPHILS % 0.5 % (0.0-1.0); EOSINOPHILS # (AUTO) 0.1 (0.0-0.4); EOSINOPHILS % 1.1 % (0.0-6.0); HEMOGLOBIN 12.4 g/dL (12.0-16.0); LYMPHOCYTES # (AUTO) 0.5 (1.0-3.2); LYMPHOCYTES % 8.8 % (18.0-39.1); MEAN CORPUSCULAR HEMOGLOBIN 31.3 pg (28-32); MEAN CORPUSCULAR HGB CONC 32.6 g/dL (31-35); MONOCYTES # (AUTO) 0.9 (0.2-0.8); MONOCYTES % 15.1 % (4.4-11.3); NEUTROPHILS # (AUTO) 4.2 (2.1-6.9); NEUTROPHILS % 74.1 % (38.7-80.0); PLATELET COUNT 152 x10e3/uL (140-360); RED BLOOD COUNT 3.96 x10e6/uL (3.6-5.1); RED CELL DISTRIBUTION WIDTH 13.9 % (11.7-14.4)
[2020-08-26] MEDS: TEMAZEPAM 15 MG CAP PO SCH (21:31)
[2020-08-26] MEDS ORDERED: PEG (High)/E-LYTE SOLN 4,000 ML BTL PO ONE (23:45)
[2020-08-27] VITALS (7 sets, daily range): BP systolic 116–164; BP diastolic 49–87
[2020-08-27 05:16] LABS: BASOPHILS % 0.5 % (0.0-1.0); EOSINOPHILS # (AUTO) 0.1 (0.0-0.4); EOSINOPHILS % 2.5 % (0.0-6.0); HEMATOCRIT 36.9 % (34.2-44.1); HEMOGLOBIN 12.4 g/dL (12.0-16.0); LYMPHOCYTES # (AUTO) 0.7 (1.0-3.2); LYMPHOCYTES % 13.2 % (18.0-39.1); MEAN CORPUSCULAR HEMOGLOBIN 32.5 pg (28-32); MEAN CORPUSCULAR HGB CONC 33.6 g/dL (31-35); MEAN CORPUSCULAR VOLUME 96.9 fL (81-99); MONOCYTES % 17.1 % (4.4-11.3); NEUTROPHILS # (AUTO) 3.7 (2.1-6.9); NEUTROPHILS % 66.3 % (38.7-80.0); PLATELET COUNT 130 x10e3/uL (140-360); RED BLOOD COUNT 3.81 x10e6/uL (3.6-5.1); RED CELL DISTRIBUTION WIDTH 13.9 % (11.7-14.4)
[2020-08-27] MEDS ORDERED: MIRALAX17 GM PO (06:35)
[2020-08-27] MEDS ORDERED: SENOKOT8.6 MG PO (06:35)
[2020-08-27] MEDS ORDERED: PANTOPRAZOLE SO40 MG PO (06:35)
[2020-08-27] MEDS: SENNOSIDES 8.6 MG TAB PO SCH (07:30)
[2020-08-27] MEDS: IRBESARTAN 150 MG TAB PO SCH (08:41)
[2020-08-27] MEDS: POLYETHYLENE GLYCOL 3350 17 GM PACK PO SCH (08:42)
[2020-08-27] MEDS: PANTOPRAZOLE 40 MG 10ML VIAL IV SCH (08:42)
[2020-08-27] MEDS: DULOXETINE HCL 30 MG DELAYED RELEASE PO SCH ×2 (08:42→17:51)
[2020-08-27] MEDS: AMLODIPINE BESYLATE 5 MG TAB PO SCH (08:42)
[2020-08-27] MEDS ORDERED: PROPOFOL IV EMULSION 10 MG/ML 20 ML VIAL ONE (12:39)
[2020-08-27] MEDS ORDERED: GLUCAGON FOR INJ 1 MG VIAL ONE (12:39)
[2020-08-27 17:45] LABS: BASOPHILS % 0.4 % (0.0-1.0); EOSINOPHILS # (AUTO) 0.1 (0.0-0.4); EOSINOPHILS % 1.5 % (0.0-6.0); HEMATOCRIT 37.5 % (34.2-44.1); HEMOGLOBIN 12.2 g/dL (12.0-16.0); LYMPHOCYTES # (AUTO) 0.8 (1.0-3.2); LYMPHOCYTES % 9.9 % (18.0-39.1); MEAN CORPUSCULAR HGB CONC 32.5 g/dL (31-35); MEAN CORPUSCULAR VOLUME 95.4 fL (81-99); MONOCYTES # (AUTO) 1.2 (0.2-0.8); MONOCYTES % 14.7 % (4.4-11.3); NEUTROPHILS # (AUTO) 5.8 (2.1-6.9); NEUTROPHILS % 73.2 % (38.7-80.0); PLATELET COUNT 173 x10e3/uL (140-360); RED BLOOD COUNT 3.93 x10e6/uL (3.6-5.1); RED CELL DISTRIBUTION WIDTH 13.6 % (11.7-14.4)
== END 2020-08-27 18:58 | disposition home or self-care (01) ==
LOC: ER 10:26 → ERHOLD 11:51 → MED/SURG2 14:30
PROVIDERS: ADMIT Internal Medicine; ATTEND Internal Medicine
DX: K50.10 Crohn's disease of large intestine without complications (principal); K64.8 Other hemorrhoids; I12.0 Hypertensive chronic kidney disease with stage 5 chronic kidney disease or end stage renal disease; N18.6 End stage renal disease; Z99.2 Dependence on renal dialysis; Z11.59 Encounter for screening for other viral diseases
CPT/HCPCS: 36415 ×3; 45380; 71045; 74174; 80053 ×2; 82270; 82550 ×2; 82553 ×2; 83540; 84466; 84484 ×2; 85025 ×3; 85045; 85610; 85730; 86704; 86705; 86706; 86850; 86900; 87340; 88305; 90935; 93005 ×2; 99284; C9113 ×2; G0378 ×3; J1610; J2704; J7030; J7050 ×2; Q9967; U0002; 88342; 90962

== ENCOUNTER → 2021-01-21 | Day surgery (SDC) | payer MEDICARE ==
[~2021-01-21] MED LIST changes: +ACETAMINOPHEN650 M1 PO; +AZOR 5-20 MG T1 EACH PO; +D-3; +FENTANYL CITRATE/PF 100MCG/2 ML INJ ONE; +IRBESARTAN150 MG; +LIDOCAINE HCL 2% LOCAL INJ 5 ML SDV VIAL INJ ONE; +METOPROLOL TART50 MG PO; +MIDAZOLAM HCL 2 MG/2 ML VIAL ONE; +MIRALAX17 GM PO; +OMEPRAZOLE40 MG PO; +PANTOPRAZOLE SO40 MG PO; +PROPOFOL IV EMULSION 10 MG/ML 20 ML VIAL ONE; +SENOKOT8.6 MG PO; +SODIUM CHLORIDE 0.9% 500ML 500 ML ONE; +TEMAZEPAM15 MG
[2021-01-21 09:19] LABS: BASOPHILS % 0.7 % (0.0-1.0); EOSINOPHILS # (AUTO) 0.1 (0.0-0.4); EOSINOPHILS % 1.1 % (0.0-6.0); HEMOGLOBIN 13.1 g/dL (12.0-16.0); LYMPHOCYTES # (AUTO) 1.3 (1.0-3.2); LYMPHOCYTES % 23.4 % (18.0-39.1); MEAN CORPUSCULAR VOLUME 96.9 fL (81-99); MONOCYTES # (AUTO) 0.9 (0.2-0.8); MONOCYTES % 15.3 % (4.4-11.3); NEUTROPHILS # (AUTO) 3.4 (2.1-6.9); NEUTROPHILS % 59.3 % (38.7-80.0); PLATELET COUNT 143 x10e3/uL (140-360); RED BLOOD COUNT 4.23 x10e6/uL (3.6-5.1)
[2021-01-21 11:35] VITALS: BP 120/50
== END | disposition home or self-care (01) ==
LOC: OR 07:09
PROVIDERS: ATTEND Internal Medicine Gastroenterology
DX: K52.9 Noninfective gastroenteritis and colitis, unspecified (principal); K64.8 Other hemorrhoids; Z71.3 Dietary counseling and surveillance; E66.9 Obesity, unspecified; K21.9 Gastro-esophageal reflux disease without esophagitis; I12.0 Hypertensive chronic kidney disease with stage 5 chronic kidney disease or end stage renal disease; N18.6 End stage renal disease; I49.8 Other specified cardiac arrhythmias; M79.669 Pain in unspecified lower leg; Z01.810 Encounter for preprocedural cardiovascular examination; Z01.812 Encounter for preprocedural laboratory examination; Z20.822 Contact with and (suspected) exposure to COVID-19; Z99.2 Dependence on renal dialysis; Z68.35 Body mass index [BMI] 35.0-35.9, adult
CPT/HCPCS: 36415; 45380; 84132; 85025; 88305; 93005; J2001; J2250; J2704; J3010; J7040; U0002; 45378

== ENCOUNTER 2021-03-08 10:18 | Inpatient (IN) | payer MEDICARE ==
[~2021-03-08] VITALS: Ht 154.9 cm; Wt 81.6 kg
[~2021-03-08 10:18] MED LIST changes: -FENTANYL CITRATE/PF 100MCG/2 ML INJ ONE; -LIDOCAINE HCL 2% LOCAL INJ 5 ML SDV VIAL INJ ONE; -MIDAZOLAM HCL 2 MG/2 ML VIAL ONE; -PROPOFOL IV EMULSION 10 MG/ML 20 ML VIAL ONE; -SODIUM CHLORIDE 0.9% 500ML 500 ML ONE
[2021-03-08] MEDS ORDERED: CEFTRIAXONE SOD 1 GM/50 ML BAG IV ONE (11:00)
[2021-03-08] MEDS ORDERED: CEFTRIAXONE SOD 1 GM in SODIUM CHLORIDE 0.9% 50ML 50 ML IV ONE (11:15)
[2021-03-08 11:17] LABS: BASOPHILS % 0.6 % (0.0-1.0); EOSINOPHILS # (AUTO) 0.1 (0.0-0.4); EOSINOPHILS % 1.1 % (0.0-6.0); HEMATOCRIT 38.7 % (34.2-44.1); HEMOGLOBIN 12.4 g/dL (12.0-16.0); LYMPHOCYTES # (AUTO) 0.6 (1.0-3.2); LYMPHOCYTES % 8.6 % (18.0-39.1); MEAN CORPUSCULAR HEMOGLOBIN 30.5 pg (28-32); MEAN CORPUSCULAR VOLUME 95.3 fL (81-99); MONOCYTES % 14.6 % (4.4-11.3); NEUTROPHILS # (AUTO) 4.9 (2.1-6.9); NEUTROPHILS % 74.6 % (38.7-80.0); PLATELET COUNT 155 x10e3/uL (140-360); RED BLOOD COUNT 4.06 x10e6/uL (3.6-5.1); RED CELL DISTRIBUTION WIDTH 14.5 % (11.7-14.4)
[2021-03-08] MEDS ORDERED: AZITHROMYCIN 500MG/NS 250 ML 250 ML IV ONE (11:30)
[2021-03-08 11:33] LABS: INR 0.98; PROTHROMBIN TIME 13.6 seconds (11.9-14.5)
[2021-03-08 11:37] LABS: ALBUMIN 3.3 g/dL (3.5-5.0); ALBUMIN/GLOBULIN RATIO 0.9 (0.8-2.0); ALKALINE PHOSPHATASE 84 IU/L (40-150); ANION GAP 25.1 mmol/L (8-16); BLOOD UREA NITROGEN 91 mg/dL (7-26); BUN/CREATININE RATIO 8 (6-25); CALCIUM 8.7 mg/dL (8.4-10.2); CARBON DIOXIDE 21 mmol/L (22-29); CHLORIDE 97 mmol/L (98-107); CREATINE KINASE 25 IU/L (29-168); CREATININE, SERUM 11.61 mg/dL (0.57-1.11); EST GLOMERULAR FILTRATION RATE 3 ML/MIN (60-); GLUCOSE 95 mg/dL (74-118); MAGNESIUM 2.8 MG/DL (1.3-2.1); SODIUM 137 mmol/L (136-145)
[2021-03-08 11:42] LABS: POTASSIUM 6.1 mmol/L (3.5-5.1)
[2021-03-08 11:52] LABS: ALANINE AMINOTRANSFERASE < 6 IU/L (0-55)
[2021-03-08] MEDS ORDERED: DEXTROSE 50% SYRINGE 50 ML IV STA (13:11)
[2021-03-08] MEDS ORDERED: SODIUM BICARBONATE 8.4% INJ 50 ML SYR IV STA (13:11)
[2021-03-08] MEDS ORDERED: CALCIUM GLUCONATE 10% INJ 4.65 MEQ in SODIUM CHLORIDE 0.9% 50ML 50 ML IV ONE (13:45)
[2021-03-08] MEDS ORDERED: INSULIN REGULAR, HUMAN 100 UNIT/1 ML 3ML VIAL IV ONE (14:00)
[2021-03-08] MEDS ORDERED: SODIUM CHLORIDE 0.9% 1000ML 1,000 ML ONE ×2 (16:13→19:23)
[2021-03-08] MEDS: FUROSEMIDE INJ 10 MG/ML 4 ML VIAL IV SCH (23:03)
[2021-03-09 02:58] LABS: CREATINE KINASE MB 0.8 ng/mL (0-5.0)
[2021-03-09 06:01] LABS: BASOPHILS % 0.6 % (0.0-1.0); EOSINOPHILS # (AUTO) 0.1 (0.0-0.4); EOSINOPHILS % 1.6 % (0.0-6.0); HEMATOCRIT 37.9 % (34.2-44.1); HEMOGLOBIN 12.3 g/dL (12.0-16.0); LYMPHOCYTES # (AUTO) 0.9 (1.0-3.2); LYMPHOCYTES % 17.2 % (18.0-39.1); MEAN CORPUSCULAR HEMOGLOBIN 30.8 pg (28-32); MEAN CORPUSCULAR HGB CONC 32.5 g/dL (31-35); MONOCYTES # (AUTO) 1.2 (0.2-0.8); MONOCYTES % 23.2 % (4.4-11.3); NEUTROPHILS # (AUTO) 2.9 (2.1-6.9); PLATELET COUNT 147 x10e3/uL (140-360); RED BLOOD COUNT 3.99 x10e6/uL (3.6-5.1); RED CELL DISTRIBUTION WIDTH 14.5 % (11.7-14.4)
[2021-03-09 06:23] LABS: CREATINE KINASE MB 0.6 ng/mL (0-5.0)
[2021-03-09] MEDS ORDERED: DOCUSATE SODIUM 100 MG CAP PO PRN (06:45)
[2021-03-09] MEDS ORDERED: ONDANSETRON HCL INJ 2MG/ML 2ML 2 MG/ML VIAL IV PRN (06:45)
[2021-03-09] MEDS ORDERED: ACETAMINOPHEN 325 MG TAB PO PRN (06:45)
[2021-03-09 07:05] LABS: ALBUMIN 3.2 g/dL (3.5-5.0); ALBUMIN/GLOBULIN RATIO 0.9 (0.8-2.0); ALKALINE PHOSPHATASE 75 IU/L (40-150); ANION GAP 18.8 mmol/L (8-16); BLOOD UREA NITROGEN 42 mg/dL (7-26); BUN/CREATININE RATIO 6 (6-25); CARBON DIOXIDE 28 mmol/L (22-29); CHLORIDE 99 mmol/L (98-107); CHOL/HDL RATIO 3.8 (3.0-3.6); CHOLESTEROL 154 MD/DL (0-199); CREATININE, SERUM 6.58 mg/dL (0.57-1.11); EST GLOMERULAR FILTRATION RATE 6 ML/MIN (60-); GLUCOSE 78 mg/dL (74-118); HDL CHOLESTEROL 41 MG/DL (40-60); LDL CHOLESTEROL 92 MG/DL (60-130); POTASSIUM 4.8 mmol/L (3.5-5.1); SODIUM 141 mmol/L (136-145); TRIGLYCERIDES 103 MG/DL (0-149)
[2021-03-09 07:07] LABS: ALANINE AMINOTRANSFERASE < 6 IU/L (0-55)
[2021-03-09 07:19] LABS: EOSINOPHILS % (MANUAL) 1 % (0-7); LYMPHOCYTES % (MANUAL) 19 % (19-48); MONOCYTES % (MANUAL) 15 % (3.4-9.0); NEUTROPHILS % (MANUAL) 65 % (40-74)
[2021-03-09 07:21] LABS: PLATELET ESTIMATE ADEQUATE; PLATELET MORPHOLOGY COMMENT NORMAL; RBC MORPHOLOGY COMMENT NORMAL
[2021-03-09] MEDS: PANTOPRAZOLE SOD 40 MG TABEC PO SCH (07:50)
[2021-03-09] MEDS ORDERED: SODIUM CHLORIDE 0.9% 1000ML 2,000 ML ONE (08:28)
[2021-03-09] MEDS: FUROSEMIDE INJ 10 MG/ML 4 ML VIAL IV SCH ×2 (09:20→20:47)
[2021-03-09] MEDS: METOPROLOL TARTRATE 50 MG TAB PO SCH (09:20)
[2021-03-09 14:39] VITALS: BP 111/39
[2021-03-09 14:42] VITALS: BP 111/39
[2021-03-09 14:56] VITALS: BP 111/39
[2021-03-09 16:11] VITALS: BP 111/39
[2021-03-09 20:00] VITALS: BP 111/52
[2021-03-09 20:45] VITALS: BP 111/52
[2021-03-10] VITALS: BP 101/50
[2021-03-10 04:00] VITALS: BP 107/80
[2021-03-10 07:39] VITALS: BP 124/57
[2021-03-10 08:00] VITALS: BP 129/57
[2021-03-10 10:05] LABS: ANION GAP 21.2 mmol/L (8-16); CALCIUM 8.8 mg/dL (8.4-10.2); CREATININE, SERUM 6.56 mg/dL (0.57-1.11); POTASSIUM 4.2 mmol/L (3.5-5.1)
[2021-03-10] MEDS: PANTOPRAZOLE SOD 40 MG TABEC PO SCH (10:13)
[2021-03-10] MEDS: METOPROLOL TARTRATE 50 MG TAB PO SCH (10:13)
[2021-03-10 12:00] VITALS: BP 120/55
[2021-03-10] MEDS ORDERED: SODIUM CHLORIDE 0.9% 1000ML 1,000 ML ONE (12:23)
[2021-03-10] MEDS ORDERED: ATORVASTATIN CA10 MG PO (12:32)
[2021-03-10] MEDS ORDERED: ASPIRIN81 MG PO (12:32)
[2021-03-10 16:00] VITALS: BP 112/50
== END 2021-03-10 18:11 | disposition home or self-care (01) | DRG 291 ==
LOC: ER 10:30 → ERHOLD 10:58 → MED/SURG2 03-09 14:21
PROVIDERS: ADMIT Internal Medicine; ATTEND Internal Medicine
PROC: 5A1D70Z Performance of Urinary Filtration, Intermittent, Less than 6 Hours Per Day (ICD-10-PCS; principal; 2021-03-08)
DX: I13.2 Hypertensive heart and chronic kidney disease with heart failure and with stage 5 chronic kidney disease, or end stage renal disease (principal); N18.6 End stage renal disease; I50.43 Acute on chronic combined systolic (congestive) and diastolic (congestive) heart failure; Z94.0 Kidney transplant status; E87.5 Hyperkalemia; E78.5 Hyperlipidemia, unspecified; R01.1 Cardiac murmur, unspecified; I25.10 Atherosclerotic heart disease of native coronary artery without angina pectoris; E11.21 Type 2 diabetes mellitus with diabetic nephropathy; Z20.822 Contact with and (suspected) exposure to COVID-19
CPT/HCPCS: 36415; 71045; 80048; 80053; 80061; 82550; 82553; 83735; 83880; 84484; 85025; 85610; 85730; 86704; 86706; 87040; 87340; 93005; 93306; J0456; J0610; J0696; J1817; J1940; J7030; J7799; U0002

== ENCOUNTER 2021-10-19 10:16 | Emergency (ER) | payer MEDICARE ==
[~2021-10-19] VITALS: Ht 154.9 cm; Wt 81.6 kg
[~2021-10-19 10:16] MED LIST changes: +ASPIRIN81 MG PO; +ATORVASTATIN CA10 MG PO
[2021-10-19] MEDS ORDERED: HYDROCODONE/APAP 5MG-325MG TAB PO ONE (10:40)
[2021-10-19] MEDS ORDERED: KETOROLAC TROMETHAMINE 60 MG/2 ML VIAL IM ONE (10:40)
[2021-10-19] MEDS ORDERED: KETOROLAC TROMETHAMINE 30 MG/ML VIAL ONE (10:46)
== END 2021-10-19 10:58 | disposition home or self-care (01) ==
LOC: ER 10:25
DX: M54.41 Lumbago with sciatica, right side (principal); I12.0 Hypertensive chronic kidney disease with stage 5 chronic kidney disease or end stage renal disease; N18.6 End stage renal disease; Z99.2 Dependence on renal dialysis
CPT/HCPCS: 99282; J1885

== ENCOUNTER 2021-12-14 10:51 | Emergency (ER) | payer MEDICARE ==
[~2021-12-14] VITALS: Ht 154.9 cm; Wt 81.6 kg
[2021-12-14 11:21] LABS: BASOPHILS % 0.6 % (0.0-1.0); EOSINOPHILS # (AUTO) 0.1 (0.0-0.4); EOSINOPHILS % 1.4 % (0.0-6.0); HEMATOCRIT 35.9 % (34.2-44.1); LYMPHOCYTES # (AUTO) 1.1 (1.0-3.2); LYMPHOCYTES % 22.2 % (18.0-39.1); MEAN CORPUSCULAR HEMOGLOBIN 22.2 pg (28-32); MEAN CORPUSCULAR HGB CONC 27.9 g/dL (31-35); MEAN CORPUSCULAR VOLUME 79.6 fL (81-99); MONOCYTES # (AUTO) 0.8 (0.2-0.8); MONOCYTES % 16.1 % (4.4-11.3); NEUTROPHILS % 59.5 % (38.7-80.0); PLATELET COUNT 120 x10e3/uL (140-360); RED BLOOD COUNT 4.51 x10e6/uL (3.6-5.1); RED CELL DISTRIBUTION WIDTH 16.8 % (11.7-14.4)
[2021-12-14 11:41] LABS: ALBUMIN 3.5 g/dL (3.5-5.0); ANION GAP 17.2 mmol/L (8-16); CALCIUM 10.2 mg/dL (8.4-10.2); CREATININE, SERUM 5.53 mg/dL (0.57-1.11); POTASSIUM 4.2 mmol/L (3.5-5.1)
[2021-12-14 13:15] VITALS: BP 115/70
== END 2021-12-14 13:16 | disposition home or self-care (01) ==
LOC: ER 11:00
DX: R10.31 Right lower quadrant pain (principal); M79.604 Pain in right leg; I12.0 Hypertensive chronic kidney disease with stage 5 chronic kidney disease or end stage renal disease; N18.6 End stage renal disease; Z99.2 Dependence on renal dialysis; M54.9 Dorsalgia, unspecified; G89.29 Other chronic pain
CPT/HCPCS: 36415; 74018; 80053; 83690; 85025; 99284

== ENCOUNTER 2022-01-28 11:55 | Emergency (ER) | payer MEDICARE ==
[~2022-01-28] VITALS: Ht 154.9 cm; Wt 81.6 kg
[2022-01-28 12:34] LABS: BASOPHILS % 0.3 % (0.0-1.0); EOSINOPHILS % 0.3 % (0.0-6.0); HEMATOCRIT 43.8 % (34.2-44.1); HEMOGLOBIN 13.3 g/dL (12.0-16.0); LYMPHOCYTES # (AUTO) 0.5 (1.0-3.2); LYMPHOCYTES % 6.7 % (18.0-39.1); MEAN CORPUSCULAR HEMOGLOBIN 26.9 pg (28-32); MEAN CORPUSCULAR HGB CONC 30.4 g/dL (31-35); MEAN CORPUSCULAR VOLUME 88.5 fL (81-99); MONOCYTES # (AUTO) 0.7 (0.2-0.8); MONOCYTES % 9.7 % (4.4-11.3); NEUTROPHILS # (AUTO) 6.1 (2.1-6.9); NEUTROPHILS % 82.7 % (38.7-80.0); PLATELET COUNT 132 x10e3/uL (140-360); RED BLOOD COUNT 4.95 x10e6/uL (3.6-5.1); RED CELL DISTRIBUTION WIDTH 22.6 % (11.7-14.4)
[2022-01-28 12:48] LABS: INR 0.99
[2022-01-28 12:49] LABS: PARTIAL THROMBOPLASTIN TIME 32.1 seconds (23.8-35.5)
[2022-01-28 12:58] LABS: ALANINE AMINOTRANSFERASE < 6 IU/L (0-55); ALBUMIN 3.4 g/dL (3.5-5.0); ALBUMIN/GLOBULIN RATIO 0.9 (0.8-2.0); ALKALINE PHOSPHATASE 100 IU/L (40-150); BLOOD UREA NITROGEN 26 mg/dL (7-26); BUN/CREATININE RATIO 3 (6-25); CALCIUM 9.6 mg/dL (8.4-10.2); CARBON DIOXIDE 27 mmol/L (22-29); CHLORIDE 98 mmol/L (98-107); CREATINE KINASE 15 IU/L (29-168); CREATININE, SERUM 7.69 mg/dL (0.57-1.11); EST GLOMERULAR FILTRATION RATE 5 ML/MIN (60-); GLUCOSE 159 mg/dL (74-118); SODIUM 142 mmol/L (136-145)
[2022-01-28 14:25] VITALS: BP 137/78
== END 2022-01-28 14:36 | disposition home or self-care (01) ==
LOC: ER 11:59
DX: R53.1 Weakness (principal); I12.0 Hypertensive chronic kidney disease with stage 5 chronic kidney disease or end stage renal disease; N18.6 End stage renal disease; Z99.2 Dependence on renal dialysis; M54.9 Dorsalgia, unspecified; G89.29 Other chronic pain; Z20.822 Contact with and (suspected) exposure to COVID-19
CPT/HCPCS: 36415; 71045; 80053; 82550; 82553; 83880; 84484; 85025; 85610; 85651; 85730; 93005; 99284; U0002

== ENCOUNTER 2022-01-30 08:25 | Inpatient (IN) | payer MEDICARE ==
[~2022-01-30] VITALS: Ht 154.9 cm; Wt 81.6 kg
[2022-01-30 08:58] LABS: BASOPHILS % 0.3 % (0.0-1.0); EOSINOPHILS # (AUTO) 0.1 (0.0-0.4); EOSINOPHILS % 0.7 % (0.0-6.0); HEMATOCRIT 40.3 % (34.2-44.1); HEMOGLOBIN 12.7 g/dL (12.0-16.0); LYMPHOCYTES % 14.2 % (18.0-39.1); MEAN CORPUSCULAR HEMOGLOBIN 27.4 pg (28-32); MEAN CORPUSCULAR HGB CONC 31.5 g/dL (31-35); MONOCYTES # (AUTO) 1.2 (0.2-0.8); MONOCYTES % 16.7 % (4.4-11.3); NEUTROPHILS # (AUTO) 4.8 (2.1-6.9); NEUTROPHILS % 67.7 % (38.7-80.0); PLATELET COUNT 140 x10e3/uL (140-360); RED BLOOD COUNT 4.63 x10e6/uL (3.6-5.1); RED CELL DISTRIBUTION WIDTH 22.2 % (11.7-14.4)
[2022-01-30 09:06] LABS: INR 1.02; PROTHROMBIN TIME 14.3 seconds (11.9-14.5)
[2022-01-30 09:07] LABS: PARTIAL THROMBOPLASTIN TIME 32.9 seconds (23.8-35.5)
[2022-01-30 09:13] LABS: ALBUMIN 3.1 g/dL (3.5-5.0); ALBUMIN/GLOBULIN RATIO 0.7 (0.8-2.0); ALKALINE PHOSPHATASE 112 IU/L (40-150); ANION GAP 23.4 mmol/L (8-16); BLOOD UREA NITROGEN 56 mg/dL (7-26); BUN/CREATININE RATIO 5 (6-25); CALCIUM 9.7 mg/dL (8.4-10.2); CARBON DIOXIDE 24 mmol/L (22-29); CHLORIDE 100 mmol/L (98-107); CREATINE KINASE 14 IU/L (29-168); CREATININE, SERUM 10.83 mg/dL (0.57-1.11); EST GLOMERULAR FILTRATION RATE 3 ML/MIN (60-); GLUCOSE 101 mg/dL (74-118); POTASSIUM 5.4 mmol/L (3.5-5.1); SODIUM 142 mmol/L (136-145)
[2022-01-30 09:14] LABS: ALANINE AMINOTRANSFERASE < 6 IU/L (0-55)
[2022-01-30] MEDS ORDERED: ONDANSETRON HCL INJ 2MG/ML 2ML 2 MG/ML VIAL IV PRN (10:15)
[2022-01-30] MEDS ORDERED: SOD POLYSTYRENE SULFONATE SUSP 15 GM/60 ML BTL PO ONE (10:15)
[2022-01-30] MEDS: FAMOTIDINE 20 MG/2 ML VIAL IV SCH ×2 (10:55→22:30)
[2022-01-30 11:25] VITALS: BP 155/59
[2022-01-30 13:58] VITALS: BP 155/59
[2022-01-30 17:00] VITALS: BP 160/85
[2022-01-30 19:16] LABS: CREATINE KINASE MB 0.6 ng/mL (0-5.0)
[2022-01-30 20:00] VITALS: BP 165/62
[2022-01-30 20:04] VITALS: BP 165/62
[2022-01-30] MEDS: HYDRALAZINE HCL 20 MG/ML VIAL IV PRN (20:55)
[2022-01-31] VITALS: BP 121/62
[2022-01-31 04:00] VITALS: BP 161/60
[2022-01-31] MEDS: ACETAMINOPHEN 325 MG TAB PO PRN ×2 (04:57→22:48)
[2022-01-31] MEDS: HYDRALAZINE HCL 20 MG/ML VIAL IV PRN (05:14)
[2022-01-31 06:10] LABS: BASOPHILS % 0.4 % (0.0-1.0); EOSINOPHILS % 0.4 % (0.0-6.0); HEMATOCRIT 39.1 % (34.2-44.1); HEMOGLOBIN 12.1 g/dL (12.0-16.0); LYMPHOCYTES # (AUTO) 0.9 (1.0-3.2); LYMPHOCYTES % 11.8 % (18.0-39.1); MEAN CORPUSCULAR HEMOGLOBIN 27.4 pg (28-32); MEAN CORPUSCULAR HGB CONC 30.9 g/dL (31-35); MEAN CORPUSCULAR VOLUME 88.5 fL (81-99); MONOCYTES # (AUTO) 1.2 (0.2-0.8); MONOCYTES % 16.9 % (4.4-11.3); NEUTROPHILS # (AUTO) 5.1 (2.1-6.9); NEUTROPHILS % 70.1 % (38.7-80.0); PLATELET COUNT 156 x10e3/uL (140-360); RED BLOOD COUNT 4.42 x10e6/uL (3.6-5.1); RED CELL DISTRIBUTION WIDTH 21.8 % (11.7-14.4)
[2022-01-31 06:36] LABS: ALBUMIN 2.9 g/dL (3.5-5.0); ALBUMIN/GLOBULIN RATIO 0.8 (0.8-2.0); ALKALINE PHOSPHATASE 102 IU/L (40-150); ANION GAP 26.8 mmol/L (8-16); BLOOD UREA NITROGEN 63 mg/dL (7-26); BUN/CREATININE RATIO 5 (6-25); CALCIUM 9.4 mg/dL (8.4-10.2); CARBON DIOXIDE 23 mmol/L (22-29); CHLORIDE 100 mmol/L (98-107); CREATININE, SERUM 11.94 mg/dL (0.57-1.11); EST GLOMERULAR FILTRATION RATE 3 ML/MIN (60-); GLUCOSE 95 mg/dL (74-118); POTASSIUM 3.8 mmol/L (3.5-5.1); SODIUM 146 mmol/L (136-145)
[2022-01-31 06:38] LABS: ALANINE AMINOTRANSFERASE < 6 IU/L (0-55)
[2022-01-31 07:23] LABS: CREATINE KINASE MB 0.9 ng/mL (0-5.0)
[2022-01-31 08:00] VITALS: BP 161/60
[2022-01-31] MEDS: FAMOTIDINE 20 MG/2 ML VIAL IV SCH ×2 (10:30→22:49)
[2022-01-31] MEDS: SEVELAMER CARBONATE 800 MG TAB PO SCH ×2 (12:00→17:00)
[2022-01-31] MEDS ORDERED: LIPITOR10 MG PO (12:50)
[2022-01-31] MEDS ORDERED: ULTRAM 50MG50 MG PO (12:50)
[2022-01-31] MEDS ORDERED: BENICAR5 MG PO (12:50)
[2022-01-31] MEDS ORDERED: TRAMADOL HCL 50 MG TAB PO PRN (13:30)
[2022-01-31] MEDS ORDERED: SODIUM CHLORIDE 0.9% 1000ML 1,000 ML ONE (14:05)
[2022-01-31] MEDS: TRAMADOL HCL 50 MG TAB PO SCH (17:00)
[2022-01-31 20:00] VITALS: BP 146/55
[2022-01-31] MEDS ORDERED: ATORVASTATIN 40 MG TAB PO SCH (21:00)
[2022-01-31 23:33] VITALS: BP 154/57
[2022-02-01 03:18] VITALS: BP 131/55
[2022-02-01 07:47] VITALS: BP 148/68
[2022-02-01] MEDS: TRAMADOL HCL 50 MG TAB PO SCH ×2 (08:00→17:52)
[2022-02-01] MEDS: SEVELAMER CARBONATE 800 MG TAB PO SCH ×3 (08:00→17:53)
[2022-02-01] MEDS ORDERED: OLMESARTAN MEDOXOMIL 5 MG TABLET PO SCH (09:00)
[2022-02-01] MEDS ORDERED: METOPROLOL TARTRATE 25 MG TAB PO SCH (09:00)
[2022-02-01] MEDS: FAMOTIDINE 20 MG/2 ML VIAL IV SCH (10:30)
[2022-02-01 11:56] VITALS: BP 166/58
[2022-02-01] MEDS ORDERED: BISACODYL 5 MG TAB EC PO PRN (14:00)
[2022-02-01 16:30] VITALS: BP 134/62
[2022-02-01] MEDS ORDERED: ONDANSETRON HCL 4 MG ORAL DISINTEGRATING TAB PO PRN (18:15)
[2022-02-01] MEDS ORDERED: FAMOTIDINE 20 MG TAB PO SCH (21:00)
== END 2022-02-01 18:48 | DRG 640 ==
LOC: ER 08:30 → ERHOLD 10:15 → INTOOBSV 10:15 → MED/SURG2 11:16 → OBSVTOIN 02-01 10:07
PROVIDERS: ADMIT Internal Medicine; ATTEND Internal Medicine
PROC: 5A1D70Z Performance of Urinary Filtration, Intermittent, Less than 6 Hours Per Day (ICD-10-PCS; principal; 2022-01-31)
DX: E87.5 Hyperkalemia (principal); N18.6 End stage renal disease; I13.2 Hypertensive heart and chronic kidney disease with heart failure and with stage 5 chronic kidney disease, or end stage renal disease; N17.9 Acute kidney failure, unspecified; I50.9 Heart failure, unspecified; Z99.2 Dependence on renal dialysis; W06.XXXA Fall from bed, initial encounter; Y92.003 Bedroom of unspecified non-institutional (private) residence as the place of occurrence of the external cause; Z99.3 Dependence on wheelchair; H57.13 Ocular pain, bilateral; R00.1 Bradycardia, unspecified; M47.9 Spondylosis, unspecified; G89.29 Other chronic pain; R19.7 Diarrhea, unspecified; S09.8XXA Other specified injuries of head, initial encounter; Z20.822 Contact with and (suspected) exposure to COVID-19
CPT/HCPCS: 36415; 70450; 71045; 80053; 82550; 82553; 82948; 83036; 84100; 84443; 84484; 85025; 85610; 85651; 85730; 86704; 86706; 87340; 93005; 94799; 97139; 99284; G0378; J0360; J7030; U0002

== ENCOUNTER 2022-04-18 03:31 | Emergency (ER) | payer MEDICARE ==
[~2022-04-18] VITALS: Ht 154.9 cm; Wt 81.6 kg
[~2022-04-18 03:31] MED LIST changes: +BENICAR5 MG PO; +LIPITOR10 MG PO; +ULTRAM 50MG50 MG PO
[2022-04-18 03:50] LABS: BASOPHILS % 0.3 % (0.0-1.0); EOSINOPHILS # (AUTO) 0.2 (0.0-0.4); EOSINOPHILS % 3.7 % (0.0-6.0); HEMATOCRIT 34.5 % (34.2-44.1); HEMOGLOBIN 10.8 g/dL (12.0-16.0); LYMPHOCYTES # (AUTO) 0.7 (1.0-3.2); LYMPHOCYTES % 10.9 % (18.0-39.1); MEAN CORPUSCULAR HEMOGLOBIN 30.4 pg (28-32); MEAN CORPUSCULAR HGB CONC 31.3 g/dL (31-35); MEAN CORPUSCULAR VOLUME 97.2 fL (81-99); MONOCYTES # (AUTO) 1.1 (0.2-0.8); MONOCYTES % 16.3 % (4.4-11.3); NEUTROPHILS # (AUTO) 4.4 (2.1-6.9); NEUTROPHILS % 68.5 % (38.7-80.0); PLATELET COUNT 207 x10e3/uL (140-360); RED BLOOD COUNT 3.55 x10e6/uL (3.6-5.1); RED CELL DISTRIBUTION WIDTH 16.2 % (11.7-14.4)
[2022-04-18 04:11] LABS: ALBUMIN 3.2 g/dL (3.5-5.0); ALBUMIN/GLOBULIN RATIO 0.8 (0.8-2.0); ANION GAP 25.1 mmol/L (8-16); CALCIUM 8.4 mg/dL (8.4-10.2); CREATININE, SERUM 10.7 mg/dL (0.57-1.11)
[2022-04-18 04:15] LABS: POTASSIUM 6.1 mmol/L (3.5-5.1)
[2022-04-18] MEDS ORDERED: INSULIN REGULAR, HUMAN 100 UNIT/1 ML IV ONE (04:15)
[2022-04-18] MEDS ORDERED: DEXTROSE 50% SYRINGE 50 ML IV STA (04:15)
[2022-04-18] MEDS ORDERED: CALCIUM CHLORIDE 10% 1.36 MEQ/ML 10ML SYR IV STA (04:15)
[2022-04-18] MEDS ORDERED: SODIUM BICARBONATE 8.4% INJ 50 ML SYR IV STA (04:15)
[2022-04-18 04:17] LABS: CREATINE KINASE MB 0.9 ng/mL (0-5.0)
[2022-04-18] MEDS ORDERED: DEXTROSE 50% SYRINGE 50 ML IV PRN (06:30)
[2022-04-18] MEDS ORDERED: DEXTROSE 50% SYRINGE 50 ML IV ONE (06:30)
[2022-04-18 09:21] LABS: ANION GAP 23.2 mmol/L (8-16); CALCIUM 9.4 mg/dL (8.4-10.2); CREATININE, SERUM 10.89 mg/dL (0.57-1.11); POTASSIUM 5.2 mmol/L (3.5-5.1)
[2022-04-18 11:58] VITALS: BP 187/77
== END 2022-04-18 12:40 | disposition other institution (70) ==
LOC: ER 03:40
DX: R07.89 Other chest pain (principal); E87.5 Hyperkalemia; I12.0 Hypertensive chronic kidney disease with stage 5 chronic kidney disease or end stage renal disease; N18.6 End stage renal disease; Z99.2 Dependence on renal dialysis; U07.1 COVID-19; M54.9 Dorsalgia, unspecified; G89.29 Other chronic pain
CPT/HCPCS: 36415; 71045; 80048; 80053; 82550; 82553; 82948; 83880; 84484; 85025; 93005; 99284; J1817; J7799; U0002

== ENCOUNTER 2022-07-13 15:42 | Inpatient (IN) | payer MEDICARE ==
[~2022-07-13] VITALS: Ht 157.5 cm; Wt 84.4 kg
[2022-07-13] MEDS ORDERED: ONDANSETRON HCL INJ 2MG/ML 2ML 2 MG/ML VIAL IV PRN (16:45)
[2022-07-13] MEDS ORDERED: SODIUM CHLORIDE FLUSH 10 ML SYR INJ PRN (16:45)
[2022-07-13] MEDS ORDERED: Vancomycin IV 500 MG in SODIUM CHLORIDE 0.9% 100 ML IV ONE (17:00)
[2022-07-13 20:00] VITALS: BP 158/55
[2022-07-13 22:10] VITALS: BP 158/55
[2022-07-14] VITALS: BP 141/46
[2022-07-14 04:00] VITALS: BP 141/46
[2022-07-14 06:00] LABS: BASOPHILS % 0.6 % (0.0-1.0); EOSINOPHILS # (AUTO) 0.1 (0.0-0.4); EOSINOPHILS % 2.3 % (0.0-6.0); HEMATOCRIT 33.2 % (34.2-44.1); HEMOGLOBIN 10.4 g/dL (12.0-16.0); LYMPHOCYTES # (AUTO) 0.8 (1.0-3.2); LYMPHOCYTES % 14.8 % (18.0-39.1); MEAN CORPUSCULAR HEMOGLOBIN 31.6 pg (28-32); MEAN CORPUSCULAR HGB CONC 31.3 g/dL (31-35); MEAN CORPUSCULAR VOLUME 100.9 fL (81-99); MONOCYTES # (AUTO) 0.6 (0.2-0.8); MONOCYTES % 11.7 % (4.4-11.3); NEUTROPHILS # (AUTO) 3.7 (2.1-6.9); NEUTROPHILS % 70.2 % (38.7-80.0); PLATELET COUNT 119 x10e3/uL (140-360); RED BLOOD COUNT 3.29 x10e6/uL (3.6-5.1); RED CELL DISTRIBUTION WIDTH 13.8 % (11.7-14.4)
[2022-07-14 06:08] LABS: PROTHROMBIN TIME 14.1 seconds (11.9-14.5)
[2022-07-14 06:09] LABS: PARTIAL THROMBOPLASTIN TIME 39.7 seconds (23.8-35.5)
[2022-07-14 06:26] LABS: ALBUMIN 2.6 g/dL (3.5-5.0); ALBUMIN/GLOBULIN RATIO 0.8 (0.8-2.0); ANION GAP 19.8 mmol/L (8-16); CALCIUM 8.9 mg/dL (8.4-10.2); CREATININE, SERUM 4.96 mg/dL (0.57-1.11); POTASSIUM 4.8 mmol/L (3.5-5.1)
[2022-07-14 07:22] VITALS: BP 147/58
[2022-07-14] MEDS ORDERED: TYLENOL325 MG PO (08:06)
[2022-07-14] MEDS ORDERED: VELPHORO500 MG PO (08:06)
[2022-07-14] MEDS ORDERED: DOCUSATE SODIU100 MG PO (08:06)
[2022-07-14] MEDS ORDERED: FERROUS SULFAT325 M1 PO (08:06)
[2022-07-14] MEDS ORDERED: METOPROLOL TART25 MG PO (08:06)
[2022-07-14] MEDS ORDERED: ACETAMINOPHEN-1 EAC3 PO (08:06)
[2022-07-14] MEDS ORDERED: CARVEDILOL6.25 MG PO (08:06)
[2022-07-14] MEDS ORDERED: CETIRIZINE HCL10 MG PO (08:06)
[2022-07-14 08:30] VITALS: BP 147/58
[2022-07-14] MEDS ORDERED: ACETAMINOPHEN 325 MG TAB PO PRN (08:45)
[2022-07-14] MEDS ORDERED: HYDROCODONE/APAP 5MG-325MG TAB PO PRN (08:45)
[2022-07-14] MEDS ORDERED: HYDRALAZINE HCL 20 MG/ML VIAL IV PRN ×2 (08:45→13:00)
[2022-07-14] MEDS ORDERED: ONDANSETRON HCL INJ 2MG/ML 2ML 2 MG/ML VIAL IV PRN (08:45)
[2022-07-14] MEDS ORDERED: Vancomycin IV 1 GM in SODIUM CHLORIDE 0.9% 250ML 250 ML IV SCH (08:45)
[2022-07-14] MEDS ORDERED: SODIUM CHLORIDE 0.9% 1000ML 2,000 ML ONE (08:54)
[2022-07-14] MEDS: SENNA-S TABLET PO SCH ×2 (09:00→14:18)
[2022-07-14] MEDS ORDERED: SODIUM CHLORIDE 0.9% 100 ML ONE (09:18)
[2022-07-14] MEDS ORDERED: NIFEDIPINE CR 30 MG TAB PO ONE (09:30)
[2022-07-14] MEDS ORDERED: HEPARIN SOD (PORCINE) 1000 UNIT/ML SDV IV PRN (09:30)
[2022-07-14] MEDS ORDERED: ALBUMIN 25% 12.5GM 0.25 GM/ML BTL IV PRN (09:45)
[2022-07-14] MEDS ORDERED: SODIUM CHLORIDE 0.9% 250ML 500 ML IV PRN (09:45)
[2022-07-14 12:25] VITALS: BP 125/82
[2022-07-14] MEDS ORDERED: DIPHENHYDRAMINE HCL 25 MG CAP PO PRN (13:00)
[2022-07-14] MEDS ORDERED: ALBUTEROL/IPRATROPIUM 3 ML NEB NEB PRN (13:00)
[2022-07-14] MEDS ORDERED: LIDOCAINE 4% PATCH TP PRN (13:00)
[2022-07-14] MEDS ORDERED: DEXTROSE 50% SYRINGE 50 ML IV PRN (13:00)
[2022-07-14] MEDS ORDERED: BENZONATATE 100 MG CAP PO PRN (13:00)
[2022-07-14] MEDS ORDERED: SIMETHICONE 80 MG CHEW PO PRN (13:00)
[2022-07-14] MEDS ORDERED: MELATONIN 5 MG TABLET PO PRN (13:00)
[2022-07-14] MEDS ORDERED: DOCUSATE SODIUM 100 MG CAP PO PRN (13:00)
[2022-07-14] MEDS: SEVELAMER CARBONATE 800 MG TAB PO SCH ×2 (14:18→16:33)
[2022-07-14 16:04] VITALS: BP 117/42
[2022-07-14] MEDS ORDERED: ATORVASTATIN 40 MG TAB PO SCH (21:00)
[2022-07-14] MEDS: ACETAMINOPHEN 325 MG TAB PO PRN (22:05)
[2022-07-15] VITALS (7 sets, daily range): BP systolic 130–144; BP diastolic 52–74
[2022-07-15] MEDS: NIFEDIPINE CR 30 MG TAB PO SCH ×2 (05:58→09:00)
[2022-07-15 06:32] LABS: BASOPHILS % 0.8 % (0.0-1.0); EOSINOPHILS # (AUTO) 0.1 (0.0-0.4); EOSINOPHILS % 3.3 % (0.0-6.0); HEMATOCRIT 32.9 % (34.2-44.1); HEMOGLOBIN 10.6 g/dL (12.0-16.0); LYMPHOCYTES % 25.3 % (18.0-39.1); MEAN CORPUSCULAR HEMOGLOBIN 31.4 pg (28-32); MEAN CORPUSCULAR HGB CONC 32.2 g/dL (31-35); MEAN CORPUSCULAR VOLUME 97.3 fL (81-99); MONOCYTES # (AUTO) 0.6 (0.2-0.8); MONOCYTES % 15.2 % (4.4-11.3); NEUTROPHILS # (AUTO) 2.2 (2.1-6.9); NEUTROPHILS % 55.1 % (38.7-80.0); PLATELET COUNT 120 x10e3/uL (140-360); RED BLOOD COUNT 3.38 x10e6/uL (3.6-5.1); RED CELL DISTRIBUTION WIDTH 14.2 % (11.7-14.4)
[2022-07-15 07:00] LABS: ANION GAP 15.9 mmol/L (8-16); CALCIUM 8.9 mg/dL (8.4-10.2); CREATININE, SERUM 3.33 mg/dL (0.57-1.11); PHOSPHORUS 4.5 MG/DL (2.3-4.7); POTASSIUM 3.9 mmol/L (3.5-5.1)
[2022-07-15] MEDS ORDERED: PANTOPRAZOLE SOD 40 MG TABEC PO SCH (07:30)
[2022-07-15] MEDS: SEVELAMER CARBONATE 800 MG TAB PO SCH ×2 (09:31→12:34)
[2022-07-15] MEDS: SENNA-S TABLET PO SCH (09:32)
[2022-07-15] MEDS ORDERED: ONDANSETRON HCL 4 MG ORAL DISINTEGRATING TAB PO PRN (11:45)
[2022-07-15] MEDS: ACETAMINOPHEN 325 MG TAB PO PRN (12:34)
[2022-07-15] MEDS ORDERED: NIFEDIPINE ER30 M1 PO (13:48)
[2022-07-15] MEDS ORDERED: KEFLEX125 MG/5 M PO (13:49)
== END 2022-07-15 16:36 | disposition home health service (06) | DRG 314 ==
LOC: ER 16:00 → INTOOBSV 16:32 → ERHOLD 16:32 → MED/SURG2 19:40 → OBSVTOIN 07-15 08:20
PROVIDERS: ADMIT Internal Medicine; ATTEND Internal Medicine
PROC: 5A1D70Z Performance of Urinary Filtration, Intermittent, Less than 6 Hours Per Day (ICD-10-PCS; principal; 2022-07-14)
DX: T82.7XXA Infection and inflammatory reaction due to other cardiac and vascular devices, implants and grafts, initial encounter (principal); N18.6 End stage renal disease; I12.0 Hypertensive chronic kidney disease with stage 5 chronic kidney disease or end stage renal disease; N25.81 Secondary hyperparathyroidism of renal origin; M87.811 Other osteonecrosis, right shoulder; Z99.2 Dependence on renal dialysis; E66.09 Other obesity due to excess calories; Z68.34 Body mass index [BMI] 34.0-34.9, adult; E83.39 Other disorders of phosphorus metabolism; Z20.822 Contact with and (suspected) exposure to COVID-19; D63.1 Anemia in chronic kidney disease; N25.0 Renal osteodystrophy; E88.09 Other disorders of plasma-protein metabolism, not elsewhere classified; G89.29 Other chronic pain
CPT/HCPCS: 0223U; 36415; 80048; 80053; 82948; 83735; 84100; 85025; 85610; 85730; 86706; 87040; 87340; 93931; 94799; 99285; G0378; J1644; J2543; J3370; J7030; J7050

== ENCOUNTER 2023-04-11 12:30 | Emergency (ER) | payer MEDICARE ==
[~2023-04-11] VITALS: Ht 157.5 cm; Wt 84.4 kg
[~2023-04-11 12:30] MED LIST changes: +ACETAMINOPHEN-1 EAC3 PO; +CARVEDILOL6.25 MG PO; +CETIRIZINE HCL10 MG PO; +DOCUSATE SODIU100 MG PO; +FERROUS SULFAT325 M1 PO; +KEFLEX125 MG/5 M PO; +METOPROLOL TART25 MG PO; +NIFEDIPINE ER30 M1 PO; +TYLENOL325 MG PO; +VELPHORO500 MG PO
[2023-04-11] MEDS ORDERED: GABAPENTIN100 MG PO (14:59)
[2023-04-11 15:38] VITALS: BP 128/84; PULSE 79; RESP 18; TEMP 98.2; O2SAT 95
== END 2023-04-11 15:41 | disposition home or self-care (01) ==
LOC: ER 12:36
DX: M25.571 Pain in right ankle and joints of right foot (principal); I12.0 Hypertensive chronic kidney disease with stage 5 chronic kidney disease or end stage renal disease; N18.6 End stage renal disease; Z99.2 Dependence on renal dialysis; E11.42 Type 2 diabetes mellitus with diabetic polyneuropathy
CPT/HCPCS: 93005; 99284